=== PATIENT | female | born 1960 | race Caucasian/White ===

== ENCOUNTER → 2017-03-21 | Outpatient (CLI) | payer OTHER ==
--- NOTE | 2017-03-21 09:33 | REPMRS ---
Patient History The patient states she had a clinical breast exam in 03/2017. Patient is postmenopausal. Family history of prostate cancer in paternal grandfather at age 50 or over and breast cancer in paternal cousin at age 38. Digital Woman Screen Mammo: March 21, 2017 - Exam #: [id number] Bilateral CC and MLO view(s) were taken. Technologist: Alisa Ramirez Technologist Prior study comparison: March 20, 2016, digital woman screen mammo performed at [facility]. March 16, 2015, digital woman screen mammo performed at [facility]. FINDINGS: There are scattered fibroglandular densities. There has been no change in the appearance of the mammogram from the prior studies. There is a mild amount of residual fibroglandular tissue which is fairly symmetric. There is no interval development of dominant mass, architectural distortion, or clustered microcalcification suggestive of malignancy. ASSESSMENT: BI-RADS/ACR category 1 mammogram. Negative. Recommendation Routine screening mammogram in 1 year (for women over age 40). This mammogram was interpreted with the aid of an FDA-approved computer-aided dectection system. Electronically Signed By: Ranulfo Brown MD 03/21/17 0933
== END ==
LOC: M WHC 08:04
PROVIDERS: ATTEND Nurse Practitioner Women's Health
DX: Z12.31 Encounter for screening mammogram for malignant neoplasm of breast (principal)

== ENCOUNTER → 2017-09-25 | Outpatient (CLI) | payer OTHER | LOC: M WUC 18:05 | DX: S90.121A Contusion of right lesser toe(s) without damage to nail, initial encounter (principal) | CPT/HCPCS: 73660 ==

== ENCOUNTER → 2018-03-24 | Outpatient (CLI) | payer OTHER | LOC: M WHC 08:00 | DX: Z12.31 Encounter for screening mammogram for malignant neoplasm of breast (principal) ==

== ENCOUNTER → 2018-11-30 | Outpatient (REF) | payer OTHER | LOC: M LAB REF 11:42 | PROVIDERS: ATTEND Physician Assistant | DX: N39.0 Urinary tract infection, site not specified (principal) ==

== ENCOUNTER → 2019-03-25 | Outpatient (CLI) | payer BC ==
--- NOTE | 2019-03-25 10:52 | REPMRS ---
Patient History The patient states she had a clinical breast exam in 03/2019. Family history of breast cancer at age 38 in paternal cousin, prostate cancer at age 50 or over in paternal grandfather. Digital Woman Screen Mammo: March 25, 2019 - Exam #: [id number] Bilateral CC and MLO view(s) were taken. Technologist: Alisa Ramirez Technologist Prior study comparison: March 24, 2018, bilateral digital woman screen mammo performed at [facility]. March 21, 2017, digital woman screen mammo performed at [facility]. March 20, 2016, digital woman screen mammo performed at [facility]. FINDINGS: There are scattered fibroglandular densities. There has been no change in the appearance of the mammogram from the prior studies. There is a mild amount of scattered fibroglandular density which is fairly symmetric. There is no interval development of dominant mass, architectural distortion, or grouped microcalcification suggestive of malignancy. 3-D tomosynthesis shows no additional findings. Assessment: BI-RADS/ACR category 1 mammogram. Negative Mammogram. Recommendation Routine screening mammogram of both breasts in 1 year (for women over age 40). This patient's Lifetime Breast Cancer Risk is estimated at 9.4 %. This mammogram was interpreted with the aid of an FDA-approved computer-aided dectection system. Electronically Signed By: Edgard Hodgson MD 03/25/19 8187
== END ==
LOC: M WHC 08:23
PROVIDERS: ATTEND Nurse Practitioner Women's Health
DX: Z12.31 Encounter for screening mammogram for malignant neoplasm of breast (principal)

== ENCOUNTER → 2019-03-25 | Outpatient (REF) | payer BC ==
[2019-03-27 16:05] LABS: HPV HYBRID CAPTURE II Negative (Negative)
== END ==
LOC: M SFHCWAGY 08:16
PROVIDERS: ATTEND Nurse Practitioner Women's Health
DX: Z12.4 Encounter for screening for malignant neoplasm of cervix (principal)
CPT/HCPCS: 87624; G0123

== ENCOUNTER → 2019-06-09 | Outpatient (CLI) | payer BC ==
--- NOTE | 2019-06-10 08:36 | REP ---
Clinical: Right shoulder pain. Technique: Internal rotation, external rotation, and Y view of the right shoulder. Findings: Inferior spurring/osteophyte formation along the inferior margin of the clavicle at the acromioclavicular joint is appreciated. The subacromial space is normal. The glenohumeral joint is normal. There is no evidence for acute fracture or dislocation. No calcified periarticular loose bodies. Impression: Degenerative changes at the acromioclavicular joint with inferior spurring/osteophyte formation. Electronically Signed by Harish Zapata MD 06/10/2019 08:28 A
== END ==
LOC: M WUC 16:48
PROVIDERS: ATTEND Physician Assistant
DX: M19.011 Primary osteoarthritis, right shoulder (principal); M25.711 Osteophyte, right shoulder

== ENCOUNTER → 2020-03-27 | Outpatient (CLI) | payer BC ==
--- NOTE | 2020-03-27 17:46 | REPMRS ---
Patient History The patient states she had a clinical breast exam in March 2020.Family history of breast cancer at age 38 in paternal cousin, prostate cancer at age 50 or over in paternal grandfather. Digital Woman Screen Mammo: March 27, 2020 - Exam #: [id number] Bilateral CC and MLO view(s) were taken. Technologist: Lesa Leon, Technologist Prior study comparison: March 25, 2019, bilateral digital woman screen mammo performed at [facility]. March 24, 2018, bilateral digital woman screen mammo performed at [facility]. March 21, 2017, digital woman screen mammo performed at [facility]. FINDINGS: The breast tissue is almost entirely fat. The Volpara volumetric breast density category is: A. There has been no change in the appearance of the mammogram from the prior studies. There is no interval development of dominant mass, architectural distortion, or grouped microcalcification typical of malignancy. 3-D tomosynthesis shows no additional findings. Assessment: BI-RADS/ACR category 1 mammogram. Negative Mammogram. Recommendation Routine screening mammogram of both breasts in 1 year (for women over age 40). This patient's Lifetime Breast Cancer RIsk is estimated at 9.2 %. This mammogram was interpreted with the aid of an FDA-approved computer-aided dectection system. Electronically Signed By: Edgard Hodgson MD 03/27/20 2607
== END ==
LOC: M WHC 08:56
PROVIDERS: ATTEND Nurse Practitioner Women's Health
DX: Z12.31 Encounter for screening mammogram for malignant neoplasm of breast (principal)

== ENCOUNTER → 2020-09-11 | Outpatient (CLI) | payer BC ==
--- NOTE | 2020-09-11 11:25 | REP ---
INDICATION: RT ARM PAIN SWELLING ? DVT COMPARISON: None. TECHNIQUE: Real time compression and duplex Doppler evaluation of the Right upper extremity deep venous system is performed. FINDINGS: The Right subclavian, jugular, axillary, brachial, basilic and cephalic veins are fully compressible where accessible with transducer pressure, and demonstrate no intraluminal thrombus and normal venous waveforms. There is no evidence of deep venous thrombosis. IMPRESSION: No evidence of deep venous thrombosis of the Right upper extremity deep vein system. <Electronically signed by Ranulfo Brown > 09/11/20 1128
== END ==
LOC: M RAD 10:50
PROVIDERS: ATTEND Physician Assistant Surgical
DX: M79.621 Pain in right upper arm (principal)

== ENCOUNTER → 2021-04-03 | Outpatient (REF) | payer BC ==
[~2021-04-03] MED LIST: ATOR1TAB21 PO; BISAC5TA PO; LOSA100T45 PO
== END ==
LOC: M SFHCWAGY 13:14
PROVIDERS: ATTEND Nurse Practitioner Women's Health
DX: Z12.4 Encounter for screening for malignant neoplasm of cervix (principal); B37.9 Candidiasis, unspecified
CPT/HCPCS: 87624; G0123

== ENCOUNTER → 2021-04-03 | Outpatient (CLI) | payer BC | LOC: M WHC 07:43 | PROVIDERS: ATTEND Nurse Practitioner Women's Health | DX: Z12.31 Encounter for screening mammogram for malignant neoplasm of breast (principal) ==

== ENCOUNTER → 2021-06-16 | Outpatient (CLI) | payer BC ==
[~2021-06-16] MED LIST changes: -LOSA100T45 PO; +LOSA100T50 PO
== END ==
LOC: M LABSMTC 09:58
PROVIDERS: ATTEND Anesthesiology
DX: Z01.812 Encounter for preprocedural laboratory examination (principal); Z20.822 Contact with and (suspected) exposure to COVID-19

== ENCOUNTER 2021-06-21 10:33 | Day surgery (SDC) | payer BC ==
[~2021-06-21] VITALS: Ht 152.4 cm; Wt 85.5 kg
[~2021-06-21 10:33] MED LIST changes: +NS 1,000 ML IV ONE
--- OUTSIDE RECORDS SUMMARY | 2021-06-21 10:42 | CCD | Continuity of Care Document ---
Author Author Claudia COKER [facility] Organization Unknown Address [address] [facility] [address] [place] [address] Phone [phone] Problems Active Problems Provider Date Psoriasis Gavino Coker RPA Onset: 03/21/2010 Hyperlipidemia Gavino Coker RPA Onset: 03/22/2010 Anemia Gavino Coker, SHAREE Onset: 02/01/2011 Hematuria syndrome Gavino Coker RPA Onset: 07/05/2011 Rheumatoid arthritis Gavino Coker RPA Onset: 2 Note: Dr. 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/2015 Social History Type Date Description Comments Sex Unknown Tobacco Use Start: Unknown End: Unknown Former Cigarette Smo ker 1/2 Pack Daily for 30 years Tobacco Use Start: Unknown End: Unknown Quit at age 49 ETOH Use Occasionally consumes wine Tobacco Use Start: Unknown End: Unknown Patient is a former smoker Seat Belt/Car Seat yes Allergies, Adverse Reactions, Alerts Description No Known Drug Allergies Medications Active Medications SIG Qnty Indications Ordering Provide r Date Moderna Covid-19 Vaccine 100mcg/0.5ML Suspension 10/02/20 & 10/30/20 Pankaj Isbell D.O., FAAFP 12/26/2020 Atorvastatin Calcium 20mg Tablets take one tablet by mouth every day maximum daily dose = 1 90tabs Pankaj Isbell D.O., FAAFP 12/19/2020 Lidocaine 5% Ointment apply topically three times a day as needed pain both knees 106.32gm Pankaj Isbell D.O., FAAFP 07/06/2020 Losartan Potassium 100mg Tablets take one tablet by mouth every day 90tabs Pankaj Isbell D.O., FAAFP 04/06/2020 Diprolene AF 0.05% Cream apply to hands twice a day 45gm Pankaj Ibsell D.O., FAAFP 02/2019 Multi-Vitamin Tablets 1 by mouth every day Unknown Medications Administered in Office Medication SIG Qnty Indications Ordering Provider Date Injection (SC)/(Im) Injection Gavino Coker, SHAREE 06/09/2019 Injection (SC)/(Im) Injection Gavino Coker RPA 06/21/2010 Immunizations CPT Code Status Date Vaccine Lot # [id number] Given 04/06/2020 Influenza Virus Vaccine, Quadrivalent, Slit Virus, Im Use 3Y & Up [id number] Given 06/09/2019 Influenza Virus Vaccine, Quadrivalent, Slit Virus, Im Use 3Y & Up [id number] 06110 Given 07/14/2017 Influenza Virus Vaccine, Quadrivalent, Slit Virus, Im Use 3Y & Up [id number] 87029 Given 06/21/2010 Influenza Virus Vac. Split Virus Individuals 3 Years And Above [id number] Vital Signs Date Vital Result Comment 04/03/2021 3:18pm BP Systolic 106 mmHg BP Diastolic 80 mmHg Body Temperature 97.5 F Heart Rate 79 /min Respiratory Rate 16 /min Height 60.6 inches 5'0.60" Weight 193.00 lb [place] Body Weight 100 lb BMI (Body Mass Index) 36.9 kg/m2 O2 % BldC Oximetry 98 % 12/26/2020 1:02pm BP Systolic 134 mmHg BP Diastolic 74 mmHg Body Temperature 97.2 F Heart Rate 85 /min Respiratory Rate 16 /min Height 60.6 inches 5'0.60" Weight 188.00 lb [place] Body Weight 100 lb BMI (Body Mass Index) 36.0 kg/m2 O2 % BldC Oximetry 97 % Results Test Acquired Date Facility Test Result H/L Range Note Complete Metabolic Profile 12/28/[address] [address] (315)- - Glu 100 mg/dL 74-106 BUN 24 mg/dL High 7-18 Cre 0.78 mg/dL 0.6-1.0 Na 143 mmol/L 136-145 K 4.6 mmol/L 3.5-5.1 CL 105 mmol/L 98-107 Co2 27 mmol/L 21-32 CA 8.8 mg/dL 8.5-10.1 Gap 11.0 mmol/L 5-12 GFR 76 mL/min 1 Ast 22 U/L 15-37 Alt 53 U/L 12-78 Alk 106 U/L 46-116 Tbili 0.3 mg/dL 0.2-1.0 TP 6.5 g/dL 6.4-8.2 Alb 3.5 gm/dL 3.4-5.0 Hemoglobin A1c 12/28/[address] [address] (315)- - Ha1 5.5 % 3.8-5.6 2 Eag 111.2 mg/dL Lipid Profile 12/28/[address] [address] (315)- - Chol 172 mg/dL 0-200 Trig 163 mg/dL High 0-150 zzzLDL 95 mg/dL 0-100 HDL 44 mg/dL 40-60 CHDL 3.9 0.0-5.0 1 GFR IS CALCULATED IN mL/min/ 1.73m2 NORMAL FUNCTION: >90 MILDLY DECREASED: 60-89 MILDY TO MODERATELY DECREASED: 45-59 MODERATELY TO SEVERELY DECREASED: 30-44 SEVERELY DECREASED: 15-29 RENAL FAILURE: <15 2 Diabetic > or = to 6.5% Prediabetes 5.7-6.4% Normal <5.7 Procedures Date Code Description Status 04/03/2021 99188 Office/Outpatient Established Mo d MDM 30-39 Min Completed 12/26/2020 82738 Office/Outpatient Established Mo d MDM 30-39 Min Completed Medical Devices Description No Information Available Encounters Type Date Location Provider Dx Diagnosis Office Visit 04/03/2021 3:15p [facility] Gavino Coker, RP A I10 Essential (primary) hypertension E78.5 Hyperlipidemia, unspecified Z12.11 Encounter for screening for malignant neoplasm of colon Office Visit 12/26/2020 1:00p [facility] Gavino Coker, RP A I10 Essential (primary) hypertension E78.5 Hyperlipidemia, unspecified Assessments Date Code Description Provider 04/03/2021 I10 Essential (primary) hypertension Gavino Coker, SHAREE 04/03/2021 E78.5 Hyperlipidemia, unspecified Gavino Dubose, SHAREE 04/03/2021 Z12.11 Encounter for screening for roxane gnant neoplasm of colon Gavino Coker, SHAREE 12/26/2020 I10 Essential (primary) hypertension Gavino Coker, SHAREE 12/26/2020 E78.5 Hyperlipidemia, unspecified Gavino Dubose, RPA Plan of Treatment No Information Available Functional Status Description No Information Available Mental Status Description No Information Available Referrals Refer to Dr Reason for Referral Status Appt Date Florin Betancourt M.D. 10 yr follow up colonoscopy Sent [address] [place] [address], [address] [address] [phone]
--- OUTSIDE RECORDS SUMMARY | 2021-06-21 10:42 | CCD | Continuity of Care Document ---
Author Author Claudia COKER [facility] Organization Unknown Address [address] [facility] [address] [place] [address] Phone [phone] Problems Active Problems Provider Date Psoriasis Gavino Coker RPA Onset: 03/21/2010 Hyperlipidemia Gavino Coker RPA Onset: 03/22/2010 Anemia Gavino Coker RPA Onset: 02/01/2011 Hematuria syndrome Gavino Coker RPA [...] a former smoker Seat Belt/Car Seat yes Allergies and adverse reactions Description No Known Drug Allergies Medications Active Medications SIG Qnty Indications Ordering Provide r Date Moderna Covid-19 Vaccine 100mcg/0.5ML Suspension 10/02/20 & 10/30/20 Pankaj Isbell D.O., FAAFP 12/26/2020 Atorvastatin Calcium 20mg Tablets Take 1 Tablet Daily (Max Daily Dose: 1) 90tabs Pankaj Isbell D.O., FAAFP 12/19/2020 Lidocaine 5% Ointment apply topically three times a day as needed pain both knees 106.32gm Pankaj Isbell D.O., FAAFP 07/06/2020 Losartan Potassium 100mg Tablets Take 1 Tablet Daily 90tabs Pankaj Isbell D.O., FAAFP 10/2019 Diprolene AF 0.05% Cream apply to hands twice a day 45gm Pankaj Isbell D.O., FAAFP 02/2019 Multi-Vitamin Tablets 1 by mouth every day Unknown Medications Administered in Office Medication SIG Qnty Indications Ordering Provider Date Injection (SC)/(Im) Injection Gavino Coker, SHAREE 06/09/2019 Injection (SC)/(Im) Injection Gavino Coker, RPA 06/21/2010 Immunizations CPT Code Status Date Vaccine Lot # [id number] Given 04/06/2020 Influenza Virus Vaccine, Quadrivalent, Slit Virus, Im Use 3Y & Up [id number] 45782 Given 06/09/2019 Influenza Virus Vaccine, Quadrivalent, Slit Virus, Im Use 3Y & Up [id number] 65402 Given 07/14/2017 Influenza Virus Vaccine, Quadrivalent, Slit Virus, Im Use 3Y & Up [id number] 78435 Given 06/21/2010 Influenza Virus Vac. Split Virus Individuals 3 Years And Above [id number] Vital Signs Date Vital Result Comment 04/03/2021 3:18pm BP Systolic 106 mmHg BP Diastolic 80 mmHg Body Temperature 97.5 F Heart Rate 79 /min Respiratory Rate 16 /min Height 60.6 inches 5'0.60" Weight 193.00 lb [place] Body Weight 100 lb BMI (Body Mass Index) 36.9 kg/m2 O2 % BldC Oximetry 98 % 12/26/2020 1:02pm BP Systolic 134 mmHg BP Diastolic 74 mmHg Body Temperature 97.2 F Heart Rate 85 /min Respiratory Rate 16 /min Height 60.6 inches 5'0.60" Weight 188.00 lb [place] Body Weight 100 lb BMI (Body Mass Index) 36.0 kg/m2 O2 % BldC Oximetry 97 % Results Test Acquired Date Facility Test Result H/L Range Note Coronavirus 2019 Nasopharygeal 06/16/2021 [facility] [phone] Coronavirus 2019 Nasopharygeal ASSAY INFORMATIO <SEE N OTE> 1 Complete Metabolic Profile 12/28/2020 [place] [address] (315)- - Glu 100 mg/dL 74-106 BUN 24 mg/dL High 7-18 Cre 0.78 mg/dL 0.6-1.0 Na 143 mmol/L 136-145 K 4.6 mmol/L 3.5-5.1 CL 105 mmol/L 98-107 Co2 27 mmol/L 21-32 CA 8.8 mg/dL 8.5-10.1 Gap 11.0 mmol/L 5-12 GFR 76 mL/min 2 Ast 22 U/L 15-37 Alt 53 U/L 12-78 Alk 106 U/L 46-116 Tbili 0.3 mg/dL 0.2-1.0 TP 6.5 g/dL 6.4-8.2 Alb 3.5 gm/dL 3.4-5.0 Hemoglobin A1c 12/28/2020 [place] [address] (137)- - Ha1 5.5 % 3.8-5.6 3 Eag 111.2 mg/dL Lipid Profile 12/28/2020 [place] [address] (315)- - Chol 172 mg/dL 0-200 Trig 163 mg/dL High 0-150 zzzLDL 95 mg/dL 0-100 HDL 44 mg/dL 40-60 CHDL 3.9 0.0-5.0 1 ASSAY INFORMATION: Real Time RT-PCR NOTE: The COVID-19 assay has been cleared by the U.S. Food and Drug Administration under the Emergency Use Authorization (EUA). [facility] and [facility] are designated as high complexity laboratories by the Clinical Laboratory Improvement Amendments of 1988(CLIA) and are qualified to perform this test. Not Detected 2 GFR IS CALCULATED IN mL/min/ 1.73m2 NORMAL FUNCTION: >90 MILDLY DECREASED: 60-89 MILDY TO MODERATELY DECREASED: 45-59 MODERATELY TO SEVERELY DECREASED: 30-44 SEVERELY DECREASED: 15-29 RENAL FAILURE: <15 3 Diabetic > or = to 6.5% Prediabetes 5.7-6.4% Normal <5.7 Procedures Date Code Description Status 04/03/2021 99757 Office/Outpatient Established Mo d MDM 30-39 Min Completed 12/26/2020 25933 Office/Outpatient Established Mo d MDM 30-39 Min Completed Medical Devices Description No Information Available Encounters Type Date Location Provider Dx Diagnosis Office Visit 04/03/2021 3:15p [facility] Gavino Coker, RP A I10 Essential (primary) hypertension E78.5 Hyperlipidemia, unspecified Z12.11 Encounter for screening for malignant neoplasm of colon Office Visit 12/26/2020 1:00p [facility] Gavino Coker, RP A I10 Essential (primary) hypertension E78.5 Hyperlipidemia, unspecified Assessments Date Code Description Provider 04/03/2021 I10 Essential (primary) hypertension Gavino Coker, RPA 04/03/2021 E78.5 Hyperlipidemia, unspecified Gavino Dubose, RPA 04/03/2021 Z12.11 Encounter for screening for roxane gnant neoplasm of colon Gavino Coker, RPA 12/26/2020 I10 Essential (primary) hypertension Gavino Coker, RPA 12/26/2020 E78.5 Hyperlipidemia, unspecified Gavino Dubose, RPA Plan of Treatment Future Appointment(s):* 07/02/2021 9:30 am - Gavino Coker, RPA at [facility] Functional Status Description No Information Available Mental Status Description No Information Available Referrals Refer to Reason for Referral Status Appt Date Florin Betancourt M.D. 10 yr follow up colonoscopy Sent [address] [facility], [address] [place] [address] [phone]
--- OUTSIDE RECORDS SUMMARY | 2021-06-21 10:42 | CCD ---
Author Author [facility] Organization [facility] Address Unknown Phone Unavailable Care Team Providers Care Beam Doffer Name Role Phone Shyla Radha Unavailable PROBLEMS Type Condition ICD9-CM Code QQC13-MT Code Onset Dates Condition S tatus W/U Status Risk SNOMED Code Notes Problem Postmenopausal status Z78.0 Active confirmed 42024748 Problem Tobacco use Z72.0 Active confirmed [id number] ALLERGIES No Known Allergies ENCOUNTERS from 1960 to 2021-04-04 Encounter Location Date Provider Diagnosis [facility] [address] [place] [address] [place] [address] Mar, Radha Mansfield Routine gynecologica l examination Z01.419 ; Breast cancer screening by mammogram Z12.31 ; Postmenopausal status Z78.0 ; Screening for malignant neoplasm of cervix Z12.4 ; Family hx-breast malignancy Z80.3 and Tobacco use disorder Z72.0 IMMUNIZATIONS Vaccine Route Administration Date Status Influenza 6mo & up Fluzone Unknown November 02, 2015 Other s SOCIAL HISTORY Tobacco Use: Social History Observation Description Date Details (start date - stop date) Former Smoker Sex Assigned At : Social History Observation Description Sex Assigned At Unknown Language: Question Answer Notes Languages spoken: Libyan Sexual Hx: Question Answer Notes Had sex in the last 12 months (vaginal, oral, or anal)? Yes LMP: post menopause Have you ever had an STD? No with Men only BMI Care Goal Follow-Up Question Answer Notes Above Normal BMI Follow-Up Giving encouragement to exercise, Weight monitoring Tobacco Use: Question Answer Notes Are you a: former smoker Additional Findings: Tobacco User Light cigarette smoker ((1 -9 cigs/day) How long has it been since you last smoked? 1-3 months quit 01/04/18 REASON FOR REFERRAL No Information VITAL SIGNS Weight 194 lbs Mar, Weight-kg 88 kg Mar, Height 60 in Mar, BMI 37.88 kg/m2 Mar, Blood pressure systolic 124 mm Hg Mar, Blood pressure diastolic 78 mm Hg Mar, MEDICATIONS Medication SIG (Take, Route, Frequency, Duration) Notes Start Da te End Date Status Calcium 600 + D 600-200 MG-UNIT 1 tablet with food p.o. Once a day Not-Taking Atorvastatin Calcium 20 MG TAKE ONE TABLET BY MOUTH EVERY DAY Oral fo r 90 Active Vitamin B12 100 MCG as directed Orally Mar, Active Lipitor 20 MG 1 tablet Orally Once a day Active Fluconazole 150 MG 1 tablet Orally Daily for 1 day(s) Active Crestor 10 mg 1 tab(s) p.o. Once a day for 30 day(s) Not-Taking Vitamin B Complex otc 1 tab(s) p.o. once a day Not-Taking Multivitamins otc 1 tab(s) p.o. once a day Active Folic Acid 400 MCG 1 tablet Orally Once a day for 30 day(s) Mar, Active PROCEDURES No Information RESULTS Component Value Reference Range WWBC DIGITAL / KIT BILATERAL MAMMO SCRE ENING (Ultrasound if indicated) Reviewed date:04/03/2021 10:46:14 Interpretation:Normal Performing Lab:[facility],rep ct [place]], ,[place] [address] REASON FOR VISIT ANNUAL/MAMMO MEDICAL (GENERAL) HISTORY Type Description Date Medical History hypercholesterolemia Medical History postmenopause Medical History Sjorgren's Syndrome Medical History TMJ Surgical History C section x2 Surgical History tubal ligation Surgical History colonoscopy 2010 Surgical History rotated cuff right Dr. Flaherty 10/10/20 Hospitalization History No Hospitalization history informati on Goals Section No Information Health Concerns No Information MEDICAL EQUIPMENT No Information MENTAL STATUS No Information FUNCTIONAL STATUS No Information ASSESSMENTS Encounter Date Diagnosis Assessment Notes Treatment Notes Treatm ent Clinical Notes Mar, Routine gynecological examination (ICD-10 - Z01. 419) Pt to report any episodes of pmb or pelvic pain. Advise regular physical activity including weight bearing exercise most days of the week. Reviewed calcium rich foods. HCRA completed and reviewed Mar, Breast cancer screening by mammogram (ICD-10 - Z 12.31) Reviewed screening intervals with mammography, recommend annual screening until age 75. Reviewed breast awareness, know what is normal for you so that you can detect any changes in the breasts, check breasts regularly, in a routine that you are comfortable with. Mar, Postmenopausal status (ICD-10 - Z78.0) Mar, Screening for malignant neoplasm of cervix (ICD- 10 - Z12.4) Reviewed ASCCP guidelines for pap screening and frequency, reviewed utility of HPV testing as well and when next pap will be due Mar, Family hx-breast malignancy (ICD-10 - Z80.3) Mar, Tobacco use disorder (ICD-10 - Z72.0) cessation advised PLAN OF TREATMENT Treatment Notes Assessment Notes Clinical Notes Routine gynecological examination Pt to report any episodes of pmb or pelvic pain. Advise regular physical activity including weight bearing exercise most days of the week. Reviewed calcium rich foods.HCRA completed and reviewed Breast cancer screening by mammogram Rev iewed screening intervals with mammography, recommend annual screening until age 75. Reviewed breast awareness, know what is normal for you so that you can detect any changes in the breasts, check breasts regularly, in a routine that you are comfortable with. Screening for malignant neoplasm of cervix Reviewed ASCCP guidelines for pap screening and frequency, reviewed utility of HPV testing as well and when next pap will be due Tobacco use disorder cessation advised Treatment Notes Test Name Order Date PAP REQUEST FOR SERVICE 2021-04-03 Next Appt Details 1 Year Reason:annual/mammo Provider Name:Radha Mansfield, 2022-04-04 01:20:00 PM, [address] [facility], , [place], [address], Follow Up:1 Yearannual/mammo Insurance Providers Payer Name Payer Address Payer Phone Insured Name Patient Relati onship to Insured Coverage Start Date Coverage End Date [employer] [place] P[employer] [id number] [facility] [employer] [facility] [place] [id number] DOMINIC HOLLAND self
--- OUTSIDE RECORDS SUMMARY | 2021-06-21 10:42 | CCD | Continuity of Care Document ---
Author Author Claudia YO-C Organization Unknown Address [address], [address] [place] [address] Phone [phone] Care Team Providers Care Tone Artist Apprentice Name Role Phone Gavino Coker AUTM [phone] Problems Description No Information Available Social History Type Date Description Comments Sex Unknown Tobacco Use Start: Unknown End: Unknown Former Cigarette Smo ker January 2018 ETOH Use Social Drinker Sun Exposure minimum amount of sun exposure Sun Exposure Tanning bed - Has used in past. No longer using. Sun Exposure Has experienced blistering from sunburns Sun Exposure Uses > 30 SPF Allergies, Adverse Reactions, Alerts Description No Known Drug Allergies Medications Active Medications SIG Qnty Indications Ordering Provide r Date Lipitor Unknown Folic + B12 Unknown Betamethasone Dipropionate Unknown Vitamin D Unknown Losartan Potassium Unknown Zinc Unknown Immunizations Description No Information Available Vital Signs Date Vital Result Comment 03/27/2021 12:29pm BP Systolic 140 mmHg BP Diastolic 102 mmHg Weight 180.00 lb Height 60 inches 5'0" BMI (Body Mass Index) 35.1 kg/m2 09/27/2020 11:17am BP Systolic 126 mmHg BP Diastolic 80 mmHg Weight 175.00 lb Body Temperature 97.8 F Results Description No Information Available Procedures Date Code Description Status 03/27/2021 25986 Office/Outpatient Established Mo d MDM 30-39 Min Completed 03/27/2021 05675 Destruction Of Lesion First Comp leted Medical Devices Description No Information Available Encounters Type Date Location Provider Dx Diagnosis Office Visit 03/27/2021 12:30p Main Office LISANDRA An L57.0 Actinic keratosis D22.5 Melanocytic nevi of trunk L82.1 Other seborrheic keratosis L81.4 Other melanin hyperpigmentat ion Z87.2 Personal history of diseases of the skin, subcu Z08 Encntr for follow-up exam af ter trtmt for malignant neoplasm Assessments Date Code Description Provider 03/27/2021 L57.0 Actinic keratosis LISANDRA Restrepo 03/27/2021 D22.5 Melanocytic nevi of trunk Jes sydneyLISANDRA Wharton 03/27/2021 L82.1 Other seborrheic keratosis Maribell aneLISANDRA Wharton 03/27/2021 L81.4 Other melanin hyperpigmentation LISANDRA An 03/27/2021 Z87.2 Personal history of diseases of the skin and subcutaneous tissue LISANDRA An 03/27/2021 Z08 Encounter for follow -up examination after completed treatment for malignant neoplasm LISANDRA An Plan of Treatment Future Appointment(s):* 11/12/2021 1:30 pm - LISANDRA An at Main Office 03/27/2021 - LISANDRA An* L57.0 Actinic keratosis* Comments:* LN2 to 1 AK today. Discussed that the area treated will get red, bubble up/bl ister, maybe get a little weepy, form a scab then heal. Sunscreen use and sun protection discussed. Contact office if AK fails to resolve despite treatment. * D22.5 Melanocytic nevi of trunk* Comments:* Nevi on trunk appear healthy. Monitor for changes. Sun protection and sunscreen use discussed. Literature given on monthly self skin evaluations. Should any moles change in shape or color, itch, bleed or burn, pt will contact office for evaluation sooner than their interval appointment. * L82.1 Other seborrheic keratosis* Comments:* Reassurance.Seborrheic keratoses are benign warty growths, patients will get more of them as they age. * L81.4 Other melanin hyperpigmentation* Comments:* Sunscreen use and sun protection discussed. Call with any problems. * Z87.2 Personal history of diseases of the skin and subcutaneous tissue* Comments:* Continue to monitor for recurrence. * Z08 Encounter for follow-up examination after completed treatment for malignant neoplasm* Comments:* See above. * Follow up:* 6 months/PRN - [facility] Functional Status Description No Information Available Mental Status Description No Information Available Referrals Description No Information Available
--- OUTSIDE RECORDS SUMMARY | 2021-06-21 10:42 | CCD | Continuity of Care Document ---
Author Claudia Farrar Organization Unknown Address [address] [facility] [address] [place] [address] Phone [phone] Care Team Providers Care Technical Operator Name Role Phone Gavino Coker AUTM [phone] AUTM Unavailable Gavion Coker AUTM [phone] Problems Active Problems Provider Date Temporomandibular joint disorder Dragan Stearns MD Onset: 02/21/2014 Allergic rhinitis Dragan Stearns MD Onset: 02/21/2014 Cervical syndrome Dragan Stearns MD Onset: 04/18/2014 Essential hypertension NAYELI Diop Onset: 04/17/2021 Social History Type Date Description Comments Sex Unknown ETOH Use Sociable Tobacco Use Start: Unknown End: Unknown Patient is a former smoker 1/2 ppd for 20 years quit 2018 Recreational Drug Use Denies Drug Use Allergies, Adverse Reactions, Alerts Description No Known Drug Allergies Medications Active Medications SIG Qnty Indications Ordering Provide r Date Lipitor 20mg Tablets 1 by mouth every day Unknown Vitamin B daily Unknown Vitamin D daily Unknown Losartan Potassium 100mg Tablets 1 tab by mouth every day Unknown Folic Acid 400mcg Tablets 1 tab by mouth every day Unknown Zinc 50mg Tablets 1 by mouth a day Unknown Immunizations Description No Information Available Vital Signs Date Vital Result Comment 04/17/2021 9:06am BP Systolic 130 mmHg BP Diastolic 87 mmHg Heart Rate 67 /min Body Temperature 98.2 F Height 60 inches 5'0" Weight 191.50 lb BMI (Body Mass Index) 37.4 kg/m2 [place] Body Weight 100 lb Weight 86.864 kg BSA (Body Surface Area) 1.83 m2 04/18/2014 9:33am BP Systolic 156 mmHg BP Diastolic 99 mmHg Heart Rate 85 /min Height 59.75 inches 4'11.75" Weight 170.00 lb BMI (Body Mass Index) 33.5 kg/m2 [place] Body Weight 100 lb Weight 77.112 kg BSA (Body Surface Area) 1.74 m2 Results Description No Information Available Procedures Description No Information Available Medical Devices Description No Information Available Encounters Description No Information Available Assessments Date Code Description Provider 04/17/2021 Z12.11 Encounter for screening for roxane gnant neoplasm of colon NAYELI Diop 04/17/2021 K64.9 Unspecified hemorrhoids NAYELI Lopez Plan of Treatment No Information Available Functional Status Description No Information Available Mental Status Description No Information Available Referrals Refer to Reason for Referral Status Appt Date Florin Betancourt JR, MD SCHED COLONOSCOPY Created [address] [address] [phone]
--- OUTSIDE RECORDS SUMMARY | 2021-06-21 10:42 | CCD | Continuity of Care Document ---
Author Claudia Farrar Organization Unknown Address [address] [facility] [address] [place] [address] Phone [phone] Care Team Providers Care Pearl Stringer Name Role Phone Gavino Coker AUTM AUTM Unavailable Gavino Coker AUTM Problems Active Problems Provider Date Temporomandibular joint [...] lb BMI (Body Mass Index) 37.4 kg/m2 [place] Body Weight 100 lb Weight 86.864 kg BSA (Body Surface Area) 1.83 m2 04/18/2014 9:33am BP Systolic 156 mmHg BP Diastolic 99 mmHg Heart Rate 85 /min Height 59.75 inches 4'11.75" Weight 170.00 lb BMI (Body Mass Index) 33.5 kg/m2 [place] Body Weight 100 lb Weight 77.112 kg BSA (Body Surface Area) 1.74 m2 Results Description No Information Available Procedures Date Code Description Status 04/17/2021 28829 Office/Outpatient New Moderate M DM 45-59 Minutes Completed Medical Devices Description No Information Available Encounters Type Date Location Provider Dx Diagnosis Office Visit 04/17/2021 9:00a [facility] NAYELI Gutierrez Z12.11 Encounter for screening for malignant ne oplasm of colon K64.9 Unspecified hemorrhoids Assessments Date Code Description Provider 04/17/2021 Z12.11 Encounter for screening for roxane gnant neoplasm of colon NAYELI Diop 04/17/2021 K64.9 Unspecified hemorrhoids NAYELI Lopez Plan of Treatment Future Appointment(s):* 07/05/2021 9:45 am - NAYELI Diop at [facility] * 06/21/2021 12:45 pm - Florin Betancourt JR, MD at [facility] 04/17/2021 - NAYELI Diop* Z12.11 Encounter for screening for malignant neoplasm of colon * K64.9 Unspecified hemorrhoids Functional Status Description No Information Available Mental Status Description No Information Available Referrals Refer to Reason for Referral Status Appt Date Florin Betancourt JR, MD SCHED COLONOSCOPY Created [address] [address] [phone]
--- OUTSIDE RECORDS SUMMARY | 2021-06-21 10:42 | CCD | Continuity of Care Document ---
Author Author Claudia [facility] Organization Unknown Address [address] [facility] [address] [place] [address] Phone [phone] Problems Active Problems Provider Date Psoriasis Gavino [...] CPT Code Status Date Vaccine Lot # [id number] Given 04/06/2020 Influenza Virus Vaccine, Quadrivalent, Slit Virus, Im Use 3Y & Up [id number] 21948 Given 06/09/2019 Influenza Virus Vaccine, Quadrivalent, Slit Virus, Im Use 3Y & Up [id number] [id number] Given 07/14/2017 Influenza Virus Vaccine, Quadrivalent, Slit Virus, Im Use 3Y & Up [id number] [id number] Given 06/21/2010 Influenza Virus Vac. Split Virus Individuals 3 Years And Above [id number] Vital Signs Date Vital Result Comment 04/03/2021 3:18pm BP Systolic 106 mmHg BP Diastolic 80 mmHg Body Temperature 97.5 F Heart Rate 79 /min Respiratory Rate 16 /min Height 60.6 inches 5'0.60" Weight 193.00 lb [place] Body Weight 100 lb BMI (Body Mass Index) 36.9 kg/m2 O2 % BldC Oximetry 98 % 12/26/2020 1:02pm BP Systolic 134 mmHg BP Diastolic 74 mmHg Body Temperature 97.2 F Heart Rate 85 /min Respiratory Rate 16 /min Height 60.6 inches 5'0.60" Weight 188.00 lb [place] Body Weight 100 lb BMI (Body Mass Index) 36.0 kg/m2 O2 % BldC Oximetry 97 % Results Test Acquired Date Facility Test Result H/L Range Note Complete Metabolic Profile 12/28/[address] [address] (315)- - Glu 100 mg/dL 74-106 BUN [...] Alb 3.5 gm/dL 3.4-5.0 Hemoglobin A1c 12/28/[address] [address] (315)- - Ha1 5.5 % 3.8-5.6 2 Eag 111.2 mg/dL Lipid Profile 12/28/[address] [address] (315)- - Chol 172 mg/dL 0-200 Trig [...] <5.7 Procedures Date Code Description Status 04/03/2021 25631 Office/Outpatient Established Mo d MDM 30-39 Min Completed 12/26/2020 48334 Office/Outpatient Established Mo d MDM 30-39 Min Completed Medical Devices Description No Information Available Encounters Type Date Location Provider Dx Diagnosis Office Visit 04/03/2021 3:15p [place] [facility] Gavino Coker, RP A I10 Essential (primary) hypertension E78.5 Hyperlipidemia, unspecified Z12.11 Encounter for screening for malignant neoplasm of colon Office Visit 12/26/2020 1:00p [place] [facility] Gavino Coker, RP A I10 Essential (primary) hypertension E78.5 Hyperlipidemia, unspecified Assessments Date Code Description Provider 04/03/2021 I10 Essential (primary) hypertension Gavino Coker, SHAREE 04/03/2021 E78.5 Hyperlipidemia, unspecified Gavino Dubose RPA 04/03/2021 Z12.11 Encounter for screening for roxane gnant neoplasm of colon Gavino Coker RPA 12/26/2020 I10 Essential (primary) hypertension Gavino Coker, SHAREE 12/26/2020 E78.5 Hyperlipidemia, unspecified Gavino Dubose RPA Plan of Treatment Future Appointment(s):* 07/02/2021 9:30 am - Gavino Coker RPA at [place] [facility] Functional Status Description No Information Available Mental Status Description No Information Available Referrals Refer to Reason for Referral Status Appt Date Florin Betancourt M.D. 10 yr follow up colonoscopy Sent [address] [facility], [address] [place] [id number] [phone]
--- OUTSIDE RECORDS SUMMARY | 2021-06-21 10:42 | CCD | Continuity of Care Document ---
Author Author [facility] Schedule Resourc e OnlyClaudia Organization Unknown Address [address] [place] [address] Phone [phone] Care Team Providers Care Supervising Deputy Name Role Phone Gavino Coker AUTM [phone] [facility] Physical Therapy AUTM Problems Active Problems Provider Date Pure hypercholesterolemia Onset: 021 Essential hypertension Onset: 09/19/2020 Bicipital tenosynovitis SOHAM Covarrubias Onset: Disorder of bursa of shoulder region SOHAM Covarrubias Ons et: 09/20/2020 Social History Type Date Description Comments Sex Unknown ETOH Use Occasionally consumes alcohol Recreational Drug Use Denies Drug Use Tobacco Use Start: Unknown End: Unknown Patient is a former smoker quit 3-4 years ago, smoked 1 PPD Allergies, Adverse Reactions, Alerts Active Allergies Criticality Reaction | Severity Comments Date NKDA Unable to assess criticality 09/19/2020 NKFA Unable to assess criticality 09/20/2020 NKEA Unable to assess criticality 09/20/2020 Medications Active Medications SIG Qnty Indications Ordering Provide r Date Losartan Potassium 100mg Tablets 1 by mouth every day Unknown Atorvastatin Calcium 20mg Tablets 1 by mouth every day Unknown Immunizations Description No Information Available Vital Signs Date Vital Result Comment 04/30/2021 11:20am Body Temperature 97.5 F 01/03/2021 8:20am Body Temperature 98.1 F Results Description No Information Available Procedures Date Code Description Status 04/30/2021 85344 Office/Outpatient Established Lo w MDM 20-29 Min Completed Medical Devices Description No Information Available Encounters Description No Information Available Assessments Date Code Description Provider 04/30/2021 M75.101 Unspecified rotator cuff tear or rupture of right shoulder, not specified as traumatic Joe Green, [facility] 04/30/2021 M75.21 Bicipital tendinitis, right shou lder Joe Green, [facility] 04/30/2021 M75.51 Bursitis of right shoulder Joe Green, [facility] 01/03/2021 M75.101 Unspecified rotator cuff tear or rupture of right shoulder, not specified as traumatic Joe Green, [facility] 01/03/2021 M75.21 Bicipital tendinitis, right shou lder Joe Green, [facility] 01/03/2021 M75.51 Bursitis of right shoulder Joe Green, [facility] 11/20/2020 M75.101 Unspecified rotator cuff tear or rupture of right shoulder, not specified as traumatic NAYELI Arrington 11/20/2020 M75.21 Bicipital tendinitis, right shou lder NAYELI Arrington 11/20/2020 M75.51 Bursitis of right shoulder NAYELI Maharaj 11/20/2020 Z47.89 Encounter for other orthopedic a ftercare NAYELI Arrington Plan of Treatment Future Appointment(s):* 11/23/2021 11:00 am - Ortho Group Schedule Resource Only at [facility] 04/30/2021 - Joe Green, [facility]* M75.101 Unspecified rotator cuff tear or rupture of right shoulder, not specified as traumatic* Follow up:* 6 months. * Instructions:* You are doing well. Continue strengthening and stretching. You can return to most regular activity at this time as long as you tolerate it. Do this gradually. Your next appointment will be in 6 months for your last routinely scheduled appointment with us (your 1 year follow up). Contact us sooner if you have any questions or concerns. * M75.21 Bicipital tendinitis, right shoulder * M75.51 Bursitis of right shoulder Functional Status Functional Condition Comment Date Status Glasses Active Mental Status Description No Information Available Referrals Description No Information Available"
--- OUTSIDE RECORDS SUMMARY | 2021-06-21 10:43 | CCD ---
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 Name Role Phone [facility] Unavailable [facility]available [facility] Unavailable Unavailable [facility] Unavailable Unavailable [facility] Unavailable Unavailable [facility] Unavailable Unavailable [facility] Unavailable Unavailable [facility] Unavailable Unavailable [facility] Unavailable Unavailable [facility] Unavailable Unavailable [facility] Unavailable Unavailable FORDS BRANCH, [facility] Unavailable Unavailable BECKY, [facility] Unavailable Unavailable BECKY, [facility] Unavailable Unavailable BECKY, [facility] Unavailable Unavailable BECKY [facility] Unavailable Unavailable Laquita Isbell PA-C Unavailable Unavailabl Laquita Holly PA-C Unavailable Unavailabl Laquita Holly PA-C Unavailable Unavailabl e Laquita Isbell PA-C Unavailable Unavailabl e Fish, [facility], PA-C Unavailable Unavailabl e Fish, [facility], PA-C Unavailable Unavailabl e Fish, [facility], PA-C Unavailable Unavailabl e Fish, [facility], PA-C Unavailable Unavailabl e Fish, [facility], PA-C Unavailable Unavailabl e Fish, [facility], PA-C Unavailable Unavailabl e Fish, [facility], PA-C Unavailable Unavailabl e Fish, [facility], PA-C Unavailable Unavailabl e Fish, [facility], PA-C Unavailable Unavailabl e Fish, [facility], PA-C Unavailable Unavailabl e Fish, [facility], PA-C Unavailable Unavailabl e Fish, [facility], PA-C Unavailable Unavailabl e Fish, [facility], PA-C Unavailable Unavailabl e Fish, [facility], PA-C Unavailable Unavailabl e Fish, [facility], PA-C Unavailable Unavailabl e Fish, [facility], PA-C Unavailable Unavailabl e Fish, [facility], PA-C Unavailable Unavailabl e Fish, [facility], PA-C Unavailable Unavailabl e Fish, [facility], PA-C Unavailable Unavailabl e Fish, [facility], PA-C Unavailable Unavailabl e Fish, [facility], PA-C Unavailable Unavailabl e Fish, [facility], PA-C Unavailable Unavailabl e Fish, [facility], PA-C Unavailable Unavailabl e Fish, [facility], PA-C Unavailable Unavailabl e Fish, [facility], PA-C Unavailable Unavailabl e Fish, [facility], PA-C Unavailable Unavailabl e Fish, [facility], PA-C Unavailable Unavailabl e Fish, [facility], PA-C Unavailable Unavailabl e Fish, [facility], PA-C Unavailable Unavailabl e Fish, [facility], PA-C Unavailable Unavailabl e Fish, [facility], PA-C Unavailable Unavailabl e Fish, Laquita Shabana MPAS, PA-C Unavailable Unavailabl e Bartoszewski, Mariama Meenakshi MS, RPA-C Unavailable Unav ailable Bartoszewski, Mariama Meenakshi MS, RPA-C Unavailable Unav ailable Bartoszewski, Mariama Meenakshi MS, RPA-C Unavailable Unav ailable Bartoszewski, Mariama Meenakshi MS, RPA-C Unavailable Unav ailable Bartoszewski, Mariama Meenakshi MS, RPA-C Unavailable Unav ailable Bartoszewski, Mariama Meenakshi MS, RPA-C Unavailable Unav ailable Bartoszewski, Mariama Meenakshi MS, RPA-C Unavailable Unav ailable Bartoszewski, Mariama Meenakshi MS, RPA-C Unavailable Unav ailable Bartoszewski, Mariama Meenakshi MS, RPA-C Unavailable Unav ailable Bartoszewski, Mariama Meenakshi MS, RPA-C Unavailable Unav ailable Bartoszewski, Mariama Meenakshi MS, RPA-C Unavailable Unav ailable Bartoszewski, Mariama Meenakshi MS, RPA-C Unavailable Unav ailable Bartoszewski, Mariama Meenakshi MS, RPA-C Unavailable Unav ailable Bartoszewski, Mariama Meenakshi MS, RPA-C Unavailable Unav ailable Bartoszewski, Mariama Meenakshi MS, RPA-C Unavailable Unav ailable Bartoszewski, Mariama Meenakshi MS, RPA-C Unavailable Unav ailable Bartoszewski, Mariama Meenakshi MS, RPA-C Unavailable Unav ailable Bartoszewski, Mariama Meenakshi MS, RPA-C Unavailable Unav ailable Bartoszewski, Mariama Meenakshi MS, RPA-C Unavailable Unav ailable Bartoszewski, Mariama Meenakshi MS, RPA-C Unavailable Unav ailable Bartoszewski, Mariama Meenakshi MS, RPA-C Unavailable Unav ailable Bartoszewski, Mariama Meenakshi MS, RPA-C Unavailable Unav ailable Bartoszewski, Mariama Meenakshi MS, RPA-C Unavailable Unav ailable Bartoszewski, Mariama Meenakshi MS, RPA-C Unavailable Unav ailable Bartoszewski, Mariama Meenakshi MS, RPA-C Unavailable Unav ailable Bartoszewski, Mariama Meenakshi MS, RPA-C Unavailable Unav ailable Bartoszewski, Mariama Meenakshi MS, RPA-C Unavailable Unav ailable Bartoszewski, Mariama Meenakshi MS, RPA-C Unavailable Unav ailable Bartoszewski, Mariama Meenakshi MS, RPA-C Unavailable Unav ailable Bartoszewski, Mariama Meenakshi MS, RPA-C Unavailable Unav ailable PARNES, Z FREYA MD Unavailable Unavailable PARNES, Z FREYA MD Unavailable Unavailable PARNES, Z FREYA MD Unavailable Unavailable PARNES, Z FREYA MD Unavailable Unavailable PARNES, Z FREYA MD Unavailable Unavailable PARNES, Z FREYA MD Unavailable Unavailable PARNES, Z FREYA MD Unavailable Unavailable PARNES, Z FREYA MD Unavailable Unavailable PARNES, Z FREYA MD Unavailable Unavailable PARNES, Z FREYA MD Unavailable Unavailable PARNES, Z FREYA MD Unavailable Unavailable PARNES, Z FREYA MD Unavailable Unavailable PARNES, Z FREYA MD Unavailable Unavailable PARNES, Z FREYA MD Unavailable Unavailable PARNES, Z FREYA MD Unavailable Unavailable PARNES, Z FREYA MD Unavailable Unavailable PARNES, Z FREYA MD Unavailable Unavailable PARNES, Z FREYA MD Unavailable Unavailable PARNES, Z FREYA MD Unavailable Unavailable PARNES, Z FREYA MD Unavailable Unavailable PARNES, Z FREYA MD Unavailable Unavailable PARNES, Z FREYA MD Unavailable Unavailable PARNES, Z FREYA MD Unavailable Unavailable PARNES, Z FREYA MD Unavailable Unavailable PARNES, Z FREYA MD Unavailable Unavailable PARNES, Z FREYA MD Unavailable Unavailable PARNES, Z FREYA MD Unavailable Unavailable PARNES, Z FREYA MD Unavailable Unavailable PARNES, Z FREYA MD Unavailable Unavailable PARNES, Z FREYA MD Unavailable Unavailable PARNES, Z FREYA MD Unavailable Unavailable PARNES, Z FREYA MD Unavailable Unavailable PARNES, Z FREYA MD Unavailable Unavailable PARNES, Z FREYA MD Unavailable Unavailable PARNES, Z FREYA MD Unavailable Unavailable PARNES, Z FREYA MD Unavailable Unavailable PARNES, Z FREYA MD Unavailable Unavailable PARNES, Z FREYA MD Unavailable Unavailable PARNES, Z FREYA MD Unavailable Unavailable PARNES, Z FREYA MD Unavailable Unavailable PARNES, Z FREYA MD Unavailable Unavailable PARNES, Z FREYA MD Unavailable Unavailable Edwige Green FINISHER HAND Unavailable Unavailable Peter, D Joe FINISHER HAND Unavailable Unavailable Peter, D Joe FINISHER HAND Unavailable Unavailable Peter, D Joe FINISHER HAND Unavailable Unavailable Peter, D Joe FINISHER HAND Unavailable Unavailable Peter, D Joe FINISHER HAND Unavailable Unavailable Peter, D Joe FINISHER HAND Unavailable Unavailable Peter, D Joe FINISHER HAND Unavailable Unavailable Peter, D Joe FINISHER HAND Unavailable Unavailable Peter, D Joe FINISHER HAND Unavailable Unavailable Peter, D Joe FINISHER HAND Unavailable Unavailable Peter, D Joe FINISHER HAND Unavailable Unavailable Peter, D Joe FINISHER HAND Unavailable Unavailable Peter, D Joe FINISHER HAND Unavailable Unavailable Peter, D Joe FINISHER HAND Unavailable Unavailable Peter, D Joe FINISHER HAND Unavailable Unavailable Peter, D Joe FINISHER HAND Unavailable Unavailable Peter, D Joe FINISHER HAND Unavailable Unavailable Peter, D Joe FINISHER HAND Unavailable Unavailable Peter, D Oje FINISHER HAND Unavailable Unavailable Peter, D Joe FINISHER HAND Unavailable Unavailable Peter, D Joe FINISHER HAND Unavailable Unavailable Peter, D Joe FINISHER HAND Unavailable Unavailable Peter, D Joe FINISHER HAND Unavailable Unavailable Peter, D Joe FINISHER HAND Unavailable Unavailable Peter, D Joe FINISHER HAND Unavailable Unavailable Peter, D Joe FINISHER HAND Unavailable Unavailable Peter, D Joe FINISHER HAND Unavailable Unavailable Peter, D Joe FINISHER HAND Unavailable Unavailable Peter, D Joe FINISHER HAND Unavailable Unavailable Peter, D Joe FINISHER HAND Unavailable Unavailable Peter, D Joe FINISHER HAND Unavailable Unavailable Peter, D Joe FINISHER HAND Unavailable Unavailable Peter, D Joe FINISHER HAND Unavailable Unavailable Peter, D Joe FINISHER HAND Unavailable Unavailable Peter, D Joe FINISHER HAND Unavailable Unavailable Sheela, D Gavino PA Unavailable Unavailable Sheela, D Gavino PA Unavailable Unavailable Sheela, D Gavino PA Unavailable Unavailable Sheela, D Gavino PA Unavailable Unavailable Sheela, D Gavino PA Unavailable Unavailable Sheela, D Gavino PA Unavailable Unavailable Sheela, D Gavino PA Unavailable Unavailable Sheela, D Gavino PA Unavailable Unavailable Sheela, D Gavino PA Unavailable Unavailable Sheela, D Gavino PA Unavailable Unavailable Sheela, D Gavino PA Unavailable Unavailable Sheela, D Gavino PA Unavailable Unavailable Sheela, D Gavino PA Unavailable Unavailable Sheela, D Gavino PA Unavailable Unavailable Sheela, D Gavino PA Unavailable Unavailable Sheela, D Gavino PA Unavailable Unavailable Sheela, D Gavino PA Unavailable Unavailable Sheela, D Gavino PA Unavailable Unavailable Sheela, D Gavino PA Unavailable Unavailable Sheela, D Gavino PA Unavailable Unavailable Sheela, D Gavino PA Unavailable Unavailable Sheela, D Gavino PA Unavailable Unavailable Sheela, D Gavino PA Unavailable Unavailable Sheela, D Gavino PA Unavailable Unavailable Sheela, D Gavino PA Unavailable Unavailable Sheela, D Gavino PA Unavailable Unavailable Sheela, D Gavino PA Unavailable Unavailable Sheela, D Gavino PA Unavailable Unavailable Sheela, D Gavino PA Unavailable Unavailable Sheela, D Gavino PA Unavailable Unavailable Sheela, D Gavino PA Unavailable Unavailable Sheela, D Gavino PA Unavailable Unavailable Sheela, D Gavino PA Unavailable Unavailable Sheela, D Gavino PA Unavailable Unavailable Sheela, D Gavino PA Unavailable Unavailable Sheela, D Gavino PA Unavailable Unavailable Sheela, D Gavino PA Unavailable Unavailable Sheela, D Gavino PA Unavailable Unavailable Sheela, D Gavino PA Unavailable Unavailable Sheela, D Gavino PA Unavailable Unavailable Sheela, D Gavino PA Unavailable Unavailable Sheela, D Gavino PA Unavailable Unavailable Sheela, D Gavino PA Unavailable Unavailable Sheela, D Gavino PA Unavailable Unavailable Sheela, D Gavino PA Unavailable Unavailable Sheela, D Gavino PA Unavailable Unavailable Sheela, D Gavino PA Unavailable Unavailable Sheela, D Gavino PA Unavailable Unavailable Sheela, D Gavino PA Unavailable Unavailable Sheela, D Gavino PA Unavailable Unavailable Sheela, D Gavino PA Unavailable Unavailable Sheela, D Gavino PA Unavailable Unavailable Sheela, D Gavino PA Unavailable Unavailable Sheela, D Gavino PA Unavailable Unavailable Sheela, D Gavino PA Unavailable Unavailable Sheela, D Gavino PA Unavailable Unavailable Sheela, D Gavino PA Unavailable Unavailable Sheela, D Gavino PA Unavailable Unavailable Sheela, D Gavino PA Unavailable Unavailable Sheela, D Gavino PA Unavailable Unavailable Sheela, D Gavino PA Unavailable Unavailable Sheela, D Gavino PA Unavailable Unavailable Sheela, D Gavino PA Unavailable Unavailable Sheela, D Gavino PA Unavailable Unavailable Sheela, D Gavino PA Unavailable Unavailable Sheela, D Gavino PA Unavailable Unavailable Sheela, D Gavino PA Unavailable Unavailable Sheela, D Gavino PA Unavailable Unavailable Lama, L Pushpa RPA Unavailable Unavailable Lama, L Pushpa RPA Unavailable Unavailable Lama, L Pushpa RPA Unavailable Unavailable Lama, L Pushpa RPA Unavailable Unavailable Lama, L Pushpa RPA Unavailable Unavailable Lama, L Pushpa RPA Unavailable Unavailable Lama, L Pushpa RPA Unavailable Unavailable Lama, L Pushpa RPA Unavailable Unavailable Lama, L Pushpa RPA Unavailable Unavailable Lama, L Pushpa RPA Unavailable Unavailable Lama, L Pushpa RPA Unavailable Unavailable Lama, L Pushpa RPA Unavailable Unavailable Lama, L Pushpa RPA Unavailable Unavailable Lama, L Pushpa RPA Unavailable Unavailable Lama, L Pushpa RPA Unavailable Unavailable Lama, L Pushpa RPA Unavailable Unavailable Lama, L Pushpa RPA Unavailable Unavailable Lama, L Pushpa RPA Unavailable Unavailable Lama, L Pushpa RPA Unavailable Unavailable Lama, L Pushpa RPA Unavailable Unavailable Lama, L Pushpa RPA Unavailable Unavailable Lama, L Pushpa RPA Unavailable Unavailable Lama, L Pushpa RPA Unavailable Unavailable Lama, L Pushpa RPA Unavailable Unavailable Lama, L Pushpa RPA Unavailable Unavailable Lama, L Pushpa RPA Unavailable Unavailable Lama, L Pushpa RPA Unavailable Unavailable Lama, L Pushpa RPA Unavailable Unavailable Lama, L Pushpa RPA Unavailable Unavailable Lama, L Pushpa RPA Unavailable Unavailable Lama, L Pushpa RPA Unavailable Unavailable Lama, L Pushpa RPA Unavailable Unavailable NEEDED NEEDED, INFO Unavailable Unavailable Peter, D Joe FINISHER HAND Unavailable Unavailable Peter, D Joe FINISHER HAND Unavailable Unavailable Peter, D Joe FINISHER HAND Unavailable Unavailable Peter, D Joe FINISHER HAND Unavailable Unavailable Peter, D Joe FINISHER HAND Unavailable Unavailable Peter, D Joe FINISHER HAND Unavailable Unavailable Peter, D Joe FINISHER HAND Unavailable Unavailable Peter, D Joe FINISHER HAND Unavailable Unavailable Peter, D Joe FINISHER HAND Unavailable Unavailable Peter, D Joe FINISHER HAND Unavailable Unavailable Peter, D Joe FINISHER HAND Unavailable Unavailable Peter, D Joe FINISHER HAND Unavailable Unavailable Peter, D Joe FINISHER HAND Unavailable Unavailable Peter, D Joe FINISHER HAND Unavailable Unavailable Peter, D Joe FINISHER HAND Unavailable Unavailable Peter, D Joe FINISHER HAND Unavailable Unavailable Peter, D Joe FINISHER HAND Unavailable Unavailable Peter, D Joe FINISHER HAND Unavailable Unavailable Peter, D Joe FINISHER HAND Unavailable Unavailable Peter, D Joe FINISHER HAND Unavailable Unavailable Peter, D Joe FINISHER HAND Unavailable Unavailable Peter, D Joe FINISHER HAND Unavailable Unavailable Peter, D Joe FINISHER HAND Unavailable Unavailable Peter, D Joe FINISHER HAND Unavailable Unavailable Peter, D Joe FINISHER HAND Unavailable Unavailable Peter, D Joe FINISHER HAND Unavailable Unavailable Peter, D Joe FINISHER HAND Unavailable Unavailable Peter, D Joe FINISHER HAND Unavailable Unavailable Peter, D Joe FINISHER HAND Unavailable Unavailable Peter, D Joe FINISHER HAND Unavailable Unavailable Peter, D Joe FINISHER HAND Unavailable Unavailable Peter, D Joe FINISHER HAND Unavailable Unavailable Peter, D Joe FINISHER HAND Unavailable Unavailable Peter, D Joe FINISHER HAND Unavailable Unavailable Peter, D Joe FINISHER HAND Unavailable Unavailable Peter, D Joe FINISHER HAND Unavailable Unavailable Edwige Dumont MD Unavailable Unavailable Edwige Dumont MD Unavailable Unavailable Edwige Dumont MD Unavailable Unavailable Vaneenenaam, Edwige Richards MD Unavailable Unavailable Vaneenenaam, Edwige Richards MD Unavailable Unavailable Vaneenenaam, Edwige Richards MD Unavailable Unavailable Vaneenenaam, Edwige Richards MD Unavailable Unavailable Vaneenenaam, Edwige Richards MD Unavailable Unavailable Vaneenenaam, Edwige Richards MD Unavailable Unavailable Vaneenenaam, Edwige Richards MD Unavailable Unavailable Vaneenenaam, Edwige Richards MD Unavailable Unavailable Vaneenenaam, Edwige Richards MD Unavailable Unavailable Vaneenenaam, Edwige Richards MD Unavailable Unavailable Vaneenenaam, Edwige Richards MD Unavailable Unavailable Vaneenenaam, Edwige Richards MD Unavailable Unavailable Vaneenenaam, Edwige Richadrs MD Unavailable Unavailable Vaneenenaam, Edwige Richards MD Unavailable Unavailable Vaneenenaam, Edwige Richards MD Unavailable Unavailable Vaneenenaam, Edwige Richards MD Unavailable Unavailable Vaneenenaam, Edwige Richards MD Unavailable Unavailable Vaneenenaam, Edwige Richards MD Unavailable Unavailable Vaneenenaam, Edwige Richards MD Unavailable Unavailable Vaneenenaam, Edwige Richards MD Unavailable Unavailable Vaneenenaam, Edwige Richards MD Unavailable Unavailable Vaneenenaam, Edwige Richards MD Unavailable Unavailable Vaneenenaam, Edwige Richards MD Unavailable Unavailable Vaneenenaam, Edwige Richards MD Unavailable Unavailable Vaneenenaam, Edwige Richards MD Unavailable Unavailable Vaneenenaam, Edwige Richards MD Unavailable Unavailable Vaneenenaam, Edwige Richards MD Unavailable Unavailable Vaneenenaam, Edwige Richards MD Unavailable Unavailable Vaneenenaam, Edwige Richards MD Unavailable Unavailable Vaneenenaam, Edwige Richards MD Unavailable Unavailable Vaneenenaam, Edwige Richards MD Unavailable Unavailable Vaneenenaam, Edwige Richards MD Unavailable Unavailable Vaneenenaam, Edwige Richards MD Unavailable Unavailable Vaneenenaam, Edwige Richards MD Unavailable Unavailable Vaneenvivianeam, Edwige Richards MD Unavailable Unavailable Vaneenenaam, Edwige Richards MD Unavailable Unavailable Vaneenenaam, Edwige Richards MD Unavailable Unavailable Vaneenenaam, Edwige Richards MD Unavailable Unavailable Vaneenvivianeam, Edwige Richards MD Unavailable Unavailable Vaneenvivianeam, Edwige Richards MD Unavailable Unavailable Vanashelyam, Edwige Richards MD Unavailable Unavailable Vaneenvivianeam, Edwige Richards MD Unavailable Unavailable Vaneenenaam, Edwige Richards MD Unavailable Unavailable NOT, SPECIFIED Unavailable Unavailable Hegard, Christin [employer]P MARKET[employer] Unavailable Unavailable Hegard, Christin [employer] Unavailable Unavailable Hegard, Christin [employer] Unavailable Unavailable Hegard, Christin [employer] Unavailable Unavailable Hegard, Christin [employer] Unavailable Unavailable Hegard, Christin [employer] Unavailable Unavailable Hegard, Christin [employer] Unavailable Unavailable Hegard, Christin [employer] Unavailable Unavailable Hegard, Chrsitin [employer] Unavailable Unavailable Hegard, Christin [employer]ET[employer] Unavailable Unavailable Hegard, Christin [employer]ET[employer] Unavailable Unavailable Hegard, Christin [employer] MARKETING Unavailable Unavailable Hegard, Christin [employer]ET[employer] Unavailable Unavailable Hegard, Christin [employer]ET[employer] Unavailable Unavailable Hegard, Christin [employer] Unavailable Unavailable Hegard, Christin [employer] Unavailable Unavailable Hegard, Christin [employer] Unavailable Unavailable Re-disclosure Warning The records that you are about to access may contain information from federally-assisted alcohol or drug abuse programs. If such information is present, then the following federally mandated warning applies: This information has been disclosed to you from records protected by federal confidentiality rules (42 CFR part 2). The federal rules prohibit you from making any further disclosure of this information unless further disclosure is expressly permitted by the written consent of the person to whom it pertains or as otherwise permitted by 42 CFR part 2. A general authorization for the release of medical or other information is NOT sufficient for this purpose. The Federal rules restrict any use of the information to criminally investigate or prosecute any alcohol or drug abuse patient.The records that you are about to access may contain highly sensitive health information, the redisclosure of which is protected by Article 27-F of the [facility] Public Health law. If you continue you may have access to information: Regarding HIV / AIDS; Provided by facilities licensed or operated by the [facility] Office of Mental Health; or Provided by the [facility] Office for People With Developmental Disabilities. If such information is present, then the following [facility] mandated warning applies: This information has been disclosed to you from confidential records which are protected by state law. State law prohibits you from making any further disclosure of this information without the specific written consent of the person to whom it pertains, or as otherwise permitted by law. Any unauthorized further disclosure in violation of state law may result in a fine or correction sentence or both. A general authorization for the release of medical or other information is NOT sufficient authorization for further disc losure. Allergies and Adverse Reactions Type Description Substance Reaction Status Data Source(s ) No Known Drug Allergies No Known Drug Allergies [facility] No Known Environmental Allergies No Known Environmental Al lergies [facility] No Known Food Allergies No Known Food Allergies [facility] Family History Family Member Name Family Member Gender Family Member Status Date o f Status Description Data Source(s) Unknown Unknown Problem [facility] ([facility] pgf Unknown Male Problem [facility] ([facility]) Encounters Encounter Providers Location Date Indications Data Source(s ) Outpatient Attender: FREYA GRADY MDConsultant: SPECIFIED NO T 04/30/2021 11:19:00 AM EDT - 04/30/2021 11:19:00 AM EDT [facility] Outpatient Attender: Pushpa Pitts/Daryn/John/Jerry bone 04/17/2021 09:00:00 AM EDT [facility] ([facility]) Outpatient Attender: Gavino TYLER [place] [facility] 03:15:00 PM EDT [facility] ([facility] Outpatient [id number] [place] [address] 04/03/2021 12:00:00 AM EDT eCW1 ([facility]) Outpatient Attender: Christin BEAUCHAMPP Main Office 0 03/27/2021 12:30:00 PM EDT [facility] ([facility]) Outpatient Attender: FREYA GRADY MD 021 02:16:00 PM EDT - 02/20/2021 05:24:00 PM EDT [facility] Patient discharged. Office Visit Attender: Joe Green NP [facility] 2020 08:20:00 AM EDT [facility] ([facility]) Outpatient Attender: FREYA GRADY MDConsultant: SPECIFIED NO T 01/03/2021 08:18:00 AM EDT - 01/03/2021 08:18:00 AM EDT [facility] Outpatient Attender: FREYA GRADY MD 021 01:26:00 PM EDT - 01/30/2021 02:16:00 PM EDT [facility] Patient discharged. Outpatient Attender: Gavino MCKEONeferrer: Freeman TYLER [facility] 12/28/2020 09:16:00 AM EDT - 12/28/2020 09:16:00 AM EDT [facility] Outpatient Attender: Gavino TYLER [place] [facility] 01:00:00 PM EDT [facility] ([facility] Outpatient Attender: FREYA GRADY MD 10:38:00 AM EDT - 12/28/2020 01:26:00 PM [facility] Patient discharged. Office Visit Attender: Meenakshi Marcus MS, RPA-C [facility] 11/20/2020 08:40:00 AM EDT [facility] ([facility]) Outpatient Attender: FREYA GRADY MDConsultant: SPECIFIED NO T 11/20/2020 08:38:00 AM EDT - 11/20/2020 08:38:00 AM EDT [facility] Office Visit Attender: Joe Green NP [facility] 2020 08:00:00 AM EDT [facility] ([facility]) Outpatient Attender: FREYA GRADY MDConsultant: SPECIFIED NO T 10/23/2020 07:56:00 AM EDT - 10/23/2020 07:56:00 AM EDT [facility] Office Visit Attender: Meenakshi Marcus MS, RPA-C [facility] 10/16/2020 09:20:00 AM EDT [facility] ([facility] Outpatient Attender: FREYA GRADY MDConsultant: SPECIFIED NO T 10/16/2020 09:11:00 AM EDT - 10/16/2020 09:11:00 AM EDT [facility] Outpatient Attender: FREYA GRADY MDConsultant: SPECIFIED NO T 10/10/2020 06:15:00 AM EST - 10/10/2020 01:10:00 PM [facility] Patient discharged. Outpatient Attender: Joe Green NPConsultant: SPECIFIED N OT 10/05/2020 12:40:00 PM EST - 10/05/2020 01:40:00 PM [facility] Patient discharged. Outpatient Attender: FREYA GRADY MDAttender: Edwige gastelum MD 10/03/2020 10:12:00 AM EST - 11/30/2020 10:38:00 AM EDT [facility] Patient discharged. Outpatient Attender: Joe Green NPConsultant: SPECIFIED N OT 10/02/2020 07:56:22 AM EST - 10/03/2020 07:57:00 AM [facility] Patient discharged. Outpatient Attender: Edwige Dumont MDAttender: INFO N EEDED NEEDED 09/26/2020 02:03:00 PM EST - 09/28/2020 10:12:00 AM [facility] Patient discharged. Outpatient Attender: Gavino TYLER [place] [facility] 10:00:00 AM EST [facility] ([facility] Outpatient Attender: FREYA GRADY MDConsultant: SPECIFIED NO T 09/20/2020 10:14:00 AM EST - 09/20/2020 10:14:00 AM [facility] Outpatient Attender: Joe Green NP Family Practice 09/20/2020 0 9:20:00 AM EST [facility] ([facility]) Outpatient Attender: Shabana VEGA PA-C Physical Therapy 09/11/2020 08:45:00 AM EST [facility] ([facility]) Outpatient Attender: Shabana VEGA PA-C Physical Therapy 08/21/2020 09:15:00 AM EST [facility] ([facility]) Emergency Attender: MANFRED Peterserrer: Gavino TYLER 08/17/2020 10:48:00 AM EST - 08/17/2020 01:45:00 PM EST [facility] Patient discharged. Outpatient Attender: Gavino TYLER [place] [facility] 10/2019 07:45:00 AM EST [facility] ([facility] Immunizations Vaccine Date Status Description Data Source(s) COVID-19 VACCINE Moderna 06/01/2021 12:00:00 AM EDT completed [facility] Vaccine Series Complete: YESThis Data wa s Submitted to [facility] [employer]. COVID-19 VACCINE Moderna 10/30/2020 12:00:00 AM EDT completed [facility] Vaccine Series Complete: YESThis Data wa s Submitted to [facility] [employer]. COVID-19 VACCINE Moderna 10/02/2020 12:00:00 AM EST completed [facility] Vaccine Series Complete: NOThis Data was Submitted to [facility] [employer]. Medications Medication Brand Name Start Date Product Form Dose Route Admi nistrative Instructions Pharmacy Instructions Status Indications Reaction Description Data Source(s) SUPREP BOWEL PREP KIT 17.5-3.13-1.6 gram SODIUM, POTASSIUM,M AG SULFATES 06/05/2021 12:00:00 AM EDT [facility] 354 TAKE PER DOCTOR'S BOWEL PREP INSTRUCTIONS TAKE PER DOCTOR'S BOWEL PREP INSTRUCTIONS SOLD: 06/16/2021 [facility] 60 mcg (15 mcg x 4)/0.5 mL 05/09/2021 12:00:00 AM EDT syringe 0 DIRECTED DIRECTED SOLD: 05/09/2021 [facility] Moderna Covid-19 Vaccine Moderna Covid-19 Vaccine 12/26/2020 12:00: 00 AM EDT active [facility] ([facility] atorvastatin 20 MG Oral Tablet Atorvastatin Calcium 12/19/2020 1 2:00:00 AM EDT active [facility] ( [facility] 5-325 mg 10/10/2020 12:00:00 AM EST tablet 48 TAKE 1-2 TABLETS BY MOUTH EVERY 4-6 HOURS NEEDED FOR PAIN MAXIMUM DAILY DOSE = 8 TABLETS TAKE 1-2 TABLETS BY MOUTH EVERY 4-6 HOURS NEEDED FOR PAIN MAXIMUM DAILY DOSE = 8 TABLETS SOLD: 10/10/2020 [facility] 5 mg 10/10/2020 12:00:00 AM EST tablet,delayed release (DR/EC) 10 TAKE 1 TABLET BY MOUTH DAILY FOR STOOL SOFTENER TAKE 1 TABLET BY MOUTH DAILY FOR STOOL SOFTENER SOLD: 10/10/2020 [facility] 5 mg 10/10/2020 12:00:00 AM EST tablet,delayed release (DR/EC) 10 TAKE 1 TABLET BY MOUTH DAILY FOR STOOL SOFTENER TAKE 1 TABLET BY MOUTH DAILY FOR STOOL SOFTENER SOLD: 12/02/2020 [facility] 8 HR Acetaminophen 650 MG Extended Release Oral Tablet [Tyle nol] Tylenol 8 Hour 10/01/2020 12:00:00 AM EST active [facility] ([facility]) 5-300 mg 09/19/2020 12:00:00 AM EST tablet 20 TAKE 1-2 TABLETS BY MOUTH EVERY 4 TO 6 HOURS NEEDED FOR PAIN MAXIMUM DAILY DOSE = 4 TABLETS TAKE 1-2 TABLETS BY MOUTH EVERY 4 TO 6 HOURS NEEDED FOR PAIN MAXIMUM DAILY DOSE = 4 TABLETS SOLD: 09/19/2020 [facility] Acetaminophen 300 MG / Hydrocodone Bitartrate 5 MG Ora l Tablet [Vicodin] Vicodin 09/19/2020 12:00:00 AM EST active [facility] ([facility]) 4 mg 09/11/2020 12:00:00 AM EST tablets,dose pack 21 TAKE BY MOUTH DIRECTED ON SHEET TAKE BY MOUTH DIRECTED ON SHEET SOLD: 09/11/2020 [facility] Methylprednisolone 4 MG Oral Tablet [Medrol] Medrol 03/2021 12:00:00 AM EST active [facility] ( [facility]) tramadol hydrochloride 50 MG Oral Tablet Tramadol HCL 08/21/2020 12:00:00 AM EST active [facility] ([facility] 50 mg 08/21/2020 12:00:00 AM EST tablet 18 TAKE ONE TABLET BY MOUTH EVERY 8 HOURS NEEDED FOR PAIN MAXIMUM DAILY DOSE = 3 TAKE ONE TABLET BY MOUTH EVERY 8 HOURS NEEDED FOR PAIN MAXIMUM DAILY DOSE = 3 SOLD: 08/21/2020 [facility] Lidocaine 0.05 MG/MG Topical Ointment Lidocaine 07/06/2020 12:00:00 AM EST active [facility] ([facility] Insurance Providers Payer name Policy type / Coverage type Policy ID Covered alliance party ID Covered alliance party's relationship to ye Policy Ye Plan Information BS [facility] Part B [id number] Self S [id number] BS [facility] Part B [id number] Self S [id number] Aetna (pr) Commercial [id number] Family Dependent [id number] [employer] [place] [id number] 18 [id number] [employer] [place] [id number] S [id number] [employer] [place] [id number] S [id number] EXCELL[employer] BCBS B [id number] S YND [id number] SELF PAY UNAVAILABLE S UNAVAILA BLE [employer] [place] WATN 306/806 [id number] SP [id number] [place] PPO 302/307 [id number] SP [id number] [employer] [place] WATN 306/806 [id number] SP [id number] [employer] [place] [id number] HU2 [id number] BCBS/Excellus Commercial [id number] Self [id number] [employer] [place] [place] O [id number] S [id number] ANSI-Commercial [id number] [employer] [place] [employer] [place] [id number] HU2 [id number] Aetna Ppo/Pos/Nap/MC Commercial [id number] Family Dependent W [id number] [employer] [place] [employer] [place] [id number] HU2 [id number] Aetna Ppo/Pos/Nap/MC Commercial [id number] Family Dependent [employer] [place] [employer] [id number] HU2 [id number] AETNA O [id number] P [id number] [employer] [facility] [facility] P [id number] S [id number] [employer] [id number] [facility] PHY [id number] SP [id number] EXCELLUS BCBS P [id number] S PPA [id number] BCBS [place] 010/510 [id number] HU2 [id number] [place] WATN PPO 302/307 [id number] SP [id number] BLUE CROSS BLUE SHIELD -PHYSICIAN CO [id number] BLUE CROSS BLUE SHIELD -O/P CO [id number] AETNA -O/P [id number] [place]BS [place] WATN PPO 302/307 [id number] SP [id number] [place]BS [place] WATN PPO 302/307 [id number] SP [id number] Problems, Conditions, and Diagnoses Code Display Name Description Problem Type Effective Dates Data Source(s) Z98.890 OTHER SPECIFIED POSTPROCEDURAL STATES OT HER SPECIFIED POSTPROCEDURAL STATES Diagnosis 02/06/2021 03:00:00 PM [facility] l M25.511 Pain in right shoulder PAIN IN RIGHT SHOULDER Diagnosi s 02/06/2021 03:00:00 PM [facility] S46.811D Strain of other muscles, fas kristin and tendons at shoulder and upper arm level, right arm, subsequent encounter STRAIN OF MUSC/FASC/TEND AT SHLDR/UP ARM , RIGHT ARM, SUBS Diagnosis 02/06/2021 03:00:00 PM [facility] E78.5 Hyperlipidemia, unspecified HYPERLIPIDEMIA, UNSPECIFIE D Diagnosis 12/28/2020 09:16:00 AM [facility] R73.01 Impaired fasting glucose IMPAIRED FASTING GLUCOSE Diag nosis 12/28/2020 09:16:00 AM [facility] I10 Essential (primary) hypertension ESSENTIAL (PRIMARY) H YPERTENSION Diagnosis 12/28/2020 09:16:00 AM [facility] Z47.89 Encounter for other orthopedic aftercare ENCOUNTER FOR OTHER ORTHOPEDIC AFTERCARE Diagnosis 12/05/2020 03:50:00 PM [facility] l Z4789 Encounter for other orthopedic aftercare Encounter for other orthopedic aftercare Diagnosis 11/20/2020 08:38:00 AM EDT [facility] Z4802 Encounter for removal of sutures Encounter for r emoval of sutures Diagnosis 10/23/2020 07:56:00 AM EDT [facility] R13204 Personal history of nicotine dependence Personal history of nicotine dependence Diagnosis 10/10/2020 06:15:00 AM [facility] M898X1 Other specified disorders of bone, shoul jesus Other specified disorders of bone, shoulder Diagnosis 10/10/2020 06:15:00 AM [facility] I10 Essential (primary) hypertension Essential (primary) h ypertension Diagnosis 10/10/2020 06:15:00 AM [facility] M7551 Bursitis of right shoulder Bursitis of right shoulder Diagnosis 10/10/2020 06:15:00 AM [facility] M7521 Bicipital tendinitis, right shoulder Bicipital t endinitis, right shoulder Diagnosis 10/10/2020 06:15:00 AM [facility] I84111 Primary osteoarthritis, right shoulder P rimary osteoarthritis, right shoulder Diagnosis 10/10/2020 06:15:00 AM [facility] Y998 Other external cause status Other external cause statu s Diagnosis 10/10/2020 06:15:00 AM [facility] Y9389 Activity, other specified Activity, other specified Di agnosis 10/10/2020 06:15:00 AM [facility] Y9289 Other specified places as the place of o ccurrence of the external cause Other specified places as the place of occurrence of the external cause Diagnosis 10/10/2020 06:15:00 AM [facility] [id number] Unspecified fall, initial encounter Unspecified fall, initial encounter Diagnosis 10/10/2020 06:15:00 AM [facility] [id number] Anterior subluxation of right humerus, i nitial encounter Anterior subluxation of right humerus, initial encounter Diagnosis 2020 06:15:00 AM [facility] [id number] Other displaced fracture of upper end of right humerus, initial encounter for closed fracture Other displaced fracture of upper end of right humerus, initial encounter for closed fracture Diagnosis 021 06:15:00 AM [facility] [id number] Strain of muscle, fascia and tendon of other parts of biceps, right arm, initial encounter Strain of muscle, fascia and tendon of o ther parts of biceps, right arm, initial encounter Diagnosis 10/10/2020 06:15:[address] [facility] L13079 Complete rotator cuff tear o r rupture of right shoulder, not specified as traumatic Complete rotator cuff tear or rupture of right shoulder, not specified as traumatic Diagnosis 10/10/2020 06:15:00 AM [facility] Z1152 ENCOUNTER FOR SCREENING FOR COVID-19 ENCOUNTER F OR SCREENING FOR COVID-19 Diagnosis 10/05/2020 12:40:00 PM [facility] Y39700 Encounter for other preprocedural examin ation Encounter for other preprocedural examination Diagnosis 10/03/2020 07:15:[address] [facility] X68754 Unspecified rotator cuff tea r or rupture of right shoulder, not specified as traumatic Unspecified rotator cuff tear or rupture of right shoulder, not specified as traumatic Diagnosis 09/20/2020 10:14:00 AM [facility] Y93.89 Activity, other specified ACTIVITY, OTHER SPECIFIED Di agnosis 08/17/2020 10:48:00 AM [facility] Y92.[address] in unspeci fied non-institutional (private) residence as the place of occurrence of the external [facility] Diagnosis 08/17/2020 10:48:00 AM [facility] l W00.0XXA Fall on same level due to ice and snow, initial encounter FALL ON SAME LEVEL DUE TO ICE AND SNOW, INITIAL EN Diagnosis 08/17/2020 10:48:00 AM [facility] Z79.899 Other assisted (current) drug therapy O THER [facility] PHYSICIAN (CURRENT) DRUG THERAPY Diagnosis 08/17/2020 10:48[facility] PURE HYPERCHOLESTEROLEMIA, UNSPECIFIED P URE HYPERCHOLESTEROLEMIA, UNSPECIFIED Diagnosis 08/17/2020 10:48:00 AM [facility] l S43.014A Anterior dislocation of right humerus, i nitial encounter ANTERIOR DISLOCATION OF RIGHT HUMERUS, INITIAL ENC Diagnosis 08/17/2020 10:48:0 0 AM [facility] S49.91XA Unspecified injury of right shoulder and upper arm, initial encounter UNSP INJURY OF RIGHT SHOULDER AND UPPER ARM, INIT ENCNTR Diagnosis 08/17/2020 10:48:00 AM [facility] [id number] Essential hypertension Essential hypertension Problem 04/17/2021 12:00:00 AM EDT [facility] ([facility], ) [id number] Cubital tunnel syndrome Cubital tunnel syndrome Proble m 10/01/2020 12:00:00 AM EST [facility] ([facility] ) [id number] Paresthesia of upper limb Paresthesia of upper limb Pr oblem 10/01/2020 12:00:00 AM EST [facility] ([facility] ) M75.101 Disorder of bursa of shoulder region Dis order of bursa of shoulder region Problem 09/20/2020 12:00:00 AM EST [facility] ([facility]) M75.21 Bicipital tenosynovitis Bicipital tenosynovitis Proble m 09/20/2020 12:00:00 AM EST [facility] ([facility]) [id number] Essential hypertension Essential hypertension Problem 09/19/2020 12:00:00 AM EST [facility] ([facility]) [id number] Pure hypercholesterolemia Pure hypercholesterolemia Pr oblem 09/19/2020 12:00:00 AM EST [facility] ([facility]) 10242816 Essential hypertension Essential hypertension Problem 08/21/2020 12:00:00 AM EST [facility] ([facility] Surgeries/Procedures Procedure Description Date Indications Data Source(s) OFFICE OUTPATIENT VISIT 15 MINUTES 04/30/2021 12:00:00 AM EDT [facility] ([facility]) OFFICE OUTPATIENT NEW 45 MINUTES 04/17/2021 12:00:00 A M EDT [facility] ([facility], ) OFFICE OUTPATIENT VISIT 25 MINUTES 04/03/2021 12:00:00 AM EDT [facility] ([facility] DESTRUCTION PREMALIGNANT LESION 1ST 03/27/2021 12:00:0 0 AM EDT [facility] ([facility]) OFFICE OUTPATIENT VISIT 25 MINUTES 03/27/2021 12:00:00 AM EDT [facility] ([facility]) OFFICE OUTPATIENT VISIT 25 MINUTES 12/26/2020 12:00:00 AM EDT [facility] ([facility] Needle electromyography, each extremity, with related paraspinal areas, when performed, done with nerve conduction, amplitude and latency/velocity study; complete, five or more muscles studied, innervated by three or more nerves or four or more spinal levels (list separately in addition to the code for primary procedure). 10/02/2020 12:00:00 AM EST MEDEN T ([facility] ) Needle Electromyography Non Extremity Done With Nerve Conduc tion 10/02/2020 12:00:00 AM EST [facility] ([facility] Nerve Conduction 9-10 Studies 10/02/2020 12:00:[address] [facility] ([facility] ) Results ID Date Data Source [id number] 06/16/2021 09:50:00 AM EST [facility] ([facility] Name Value Range Interpretation Code Description Data Sonja rce(s) Supporting Document(s) Laboratory test finding (navigational concept) Laboratory test result [facility] ([facility] ASSAY INFORMATION: Real Time RT-PCR NOTE: The COVID-19 assay has been cleared by the U.S. Food and Drug Administration under the Emergency Use Authorization (EUA). [facility] and [facility] are designated as high complexity laboratories by the Clinical Laboratory Improvement Amendments of 1988(CLIA) and are qualified to perform this test. Not Detected ID Date Data Source WWBC DIGITAL / KIT BILATERAL MAMMO SCREENING (Ultraso und if indicated) 04/03/2021 12:00:00 AM EDT [facility] Name Value Range Interpretation Code Description Data Sonja rce(s) Supporting Document(s) WWBC DIGITAL / KIT BILAT ERAL MAMMO SCREENING (Ultrasound if indicated) [facility]CW1 ([facility]) ID Date Data Source [id number] 12/28/2020 09:25:00 AM EDT [facility] ([facility] Name Value Range Interpretation Code Description Data Sonaj rce(s) Supporting Document(s) Trig 163 mg/dL 0-150 Above high normal [facility] ([facility] Chol 172 mg/dL 0-200 [facility] zzzLDL 95 mg/dL 0-100 [facility] HDL 44 mg/dL 40-60 [facility] CHDL 3.9 0.0-5.0 [facility] ID Date Data Source [id number] 12/28/2020 09:25:00 AM EDT [facility] Name Value Range Interpretation Code Description Data Sonja rce(s) Supporting Document(s) Laboratory test finding (navigational concept) 111.2 mg/dL [facility] ([facility] Laboratory test finding (navigational concept) 5.5 % 3.8-5.6 [facility] ([facility] <content>Diabetic > or = to 6.5%</conten t>
<content>Prediabetes 5.7- 6.4%</content>
<content>Normal <5.7</content>
<content></content> ID Date Data Source [id number] 12/28/2020 09:25:00 AM EDT [facility] ([facility] Name Value Range Interpretation Code Description Data Sonja rce(s) Supporting Document(s) BUN 24 mg/dL 7-18 Above high normal [facility] Glu 100 mg/dL 74-106 [facility] Cre 0.78 mg/dL 0.6-1.0 [facility] Na 143 mmol/L 136-145 [facility] K 4.6 mmol/L 3.5-5.1 [facility] CL 105 mmol/L 98-107 [facility] Co2 27 mmol/L 21-32 [facility] CA 8.8 mg/dL 8.5-10.1 [facility] GFR 76 mL/min [facility] <content>GFR IS CALCULATED IN mL/min/1.73m2</content>
<content></content>
<content>NORMAL FUNCTION: >90</content>
<content>MILDLY DECREASED: 60-89</content>
<content>MILDY TO MODERATELY DECREASED: 45-59</content>
<content>MODERATELY TO SEVERELY DECREASED: 30-44</content>
<content>SEVERELY DECREASED: 15- 29</content>
<content>RENAL FAILURE: <15</content>
<content></content> Gap 11.0 mmol/L 5-12 [facility] Alt 53 U/L 12-78 [facility] Ast 22 U/L 15-37 [facility] Alk 106 U/L 46-116 [facility] Tbili 0.3 mg/dL 0.2-1.0 [facility] Alb 3.5 gm/dL 3.4-5.0 [facility] TP 6.5 g/dL 6.4-8.2 [facility] ID Date Data Source [id number] 12/28/2020 10:34:00 AM EDT [facility] FAX [phone] Name Value Range Interpretation Code Description Data Sonja rce(s) Supporting Document(s) HGBA1C 5.5 % 3.8-5.6 [facility] Diabetic > or = to 6.5%Prediabetes 5.7-6 .4%Normal <5.7 ESTIMATED AVERAGE GLUCOSE 111.2 mg/dL [facility] ID Date Data Source [id number] 12/28/2020 10:34:00 AM EDT [facility] [phone] Name Value Range Interpretation Code Description Data Sonja rce(s) Supporting Document(s) CHOLESTEROL 172 mg/dL 0-200 [facility] TRIGLYCERIDES 163 mg/dL 0-150 H [facility] LDL CHOLESTEROL 95 mg/dL 0-100 [facility] HDL CHOLESTEROL 44 mg/dL 40-60 [facility] CHOL/HDL RATIO 3.9 0.0-5.0 [facility] ID Date Data Source [id number] 12/28/2020 10:34:00 AM EDT [facility] [phone] Name Value Range Interpretation Code Description Data Sonja rce(s) Supporting Document(s) GLUCOSE 100 mg/dL 74-106 [facility] BLOOD UREA NITROGEN 24 mg/dL 7-18 H [facility] ital CREATININE 0.78 mg/dL 0.6-1.0 [facility] SODIUM 143 mmol/L 136-145 [facility] POTASSIUM 4.6 mmol/L 3.5-5.1 [facility] CHLORIDE 105 mmol/L 98-107 [facility] CO2 27 mmol/L 21-32 [facility] CALCIUM 8.8 mg/dL 8.5-10.1 [facility] ANION GAP 11.0 mmol/L 5-12 [facility] GLOMERULAR FILTRATION RATE 76 mL/min [facility] GFR IS CALCULATED IN mL/min/1.73m2 EB L FUNCTION: >90MILDLY DECREASED: 60-89MILDY TO MODERATELY DECREASED: 45-59 MODERATELY TO SEVERELY DECREASED: 30-44SEVERELY DECREASED: 15-29RENAL FAILURE: <15 AST 22 U/L 15-37 [facility] ALT 53 U/L 12-78 [facility] ALKALINE PHOSPHATASE 106 U/L 46-116 [facility] pital TOTAL BILIRUBIN 0.3 mg/dL 0.2-1.0 [facility] TOTAL PROTEIN 6.5 g/dl 6.4-8.2 [facility] ALBUMIN 3.5 gm/dL 3.4-5.0 [facility] ID Date Data Source [id number] 10/16/2020 12:45:00 [place] [address] OPERATIVE SUMMARYNAME: AMALIA STINSONFADUMO Corona DATE OF : 1960 PHYS: Freya Grady MD DATE: 10/10/20 MR#: [id number] OF PROCEDURE: 10/10/20PREOPERATIVE DIAGNOSIS: 1. Right shoulder long biceps tendon tendinosis. 2. Right shoulder subacromial bursitis. 3. Right shoulder massive rotator cuff tear.POSTOPERATIVE DIAGNOSIS: 1. Right shoulder long biceps tendon partial tendon tear and anterior subluxation. 2. Right shoulder full tendon tear of the subscapularis tendon (large size tear, mediocre tissue quality). 3. Right shoulder subacromial bursitis and downsloping acromion. 4. Right shoulder full tendon tear of the supraspinatus and infraspinatus tendons (massive size tear, mediocre to poor tissue quality, delaminated tendon).SURGEON: Freya Grady MD.QUAL FIELD MANAGER: BAYLEE CovarrubiasON FOR CHILD WELFARE SPECIALIST: Joe Green NP provided essential assistance during this caseincluding careful retraction of vital structures, safe manipulation of anatomic structures,stabilization of scope, wound closure and dressing.ANESTHESIA: General and interscalene block.ANESTHESIOLOGIST: Damien Dodge Nurse Anesthesiologist.SURGICAL TIME: 111 minutes.OPERATION PERFORMED: 1. Right shoulder evaluation under anesthesia. 2. Right shoulder diagnostic arthroscopy. 3. Right shoulder arthroscopic biceps tenotomy. 4. Right shoulder arthroscopic repair of subscapularis full tendon tear ([employer] Healicoil Regenesorb 5.5 mm double-loaded anchor x1). 5. Right shoulder arthroscopic subacromial decompression plus acromioplasty. 1 [place] [address] OPERATIVE SUMMARYNAME: AMALIA Corona DATE OF : 1960 PHYS: Freya Grady MD DATE: 10/10/20 MR#: [id number] 6. Right shoulder arthroscopic repair of supraspinatus and infraspinatus full tendon tear ([employer] Healicoil Regenesorb 5.5 mm double-loaded anchor x2, Mitek VersiLock anchor x1, Fiberwire #2 x1).ESTIMATED BLOOD LOSS: Minimal.SPECIMENS: None.IMPLANTS: [employer] Healicoil Regenesorb 5.5 mm double-loaded anchor x3, MitekVersiLock anchor x1, Fiberwire #2 x1.SPONGE COUNT: Correct.NEEDLE COUNT: Correct.COMPLICATIONS: None.INDICATION FOR PROCEDURE:The patient is a 60-year-old female with pain and weakness in her right dominant shoulder for thelast 2 years status post recurrent falls, the last one 10 weeks ago. The patient's preoperativeevaluation and imaging studies, including MRI suggested the above-noted diagnosis. The patientfailed conservative treatment, therefore, it was elected at this point to perform the above-notedsurgery.OPERATIVE FINDINGS:Examination under anesthesia demonstrated stable, supple shoulder. Forward flexion was 160degrees, external rotation 70 degrees, internal rotation 60 degrees. At time of arthroscopy, thecartilage of the humeral head and glenoid were found to be normal. The labrum was well-attachedall around the glenoid. The capsule appeared to be normal. The biceps tendon was partially torn andanteriorly subluxated. The subscapularis tendon had a full tendon tear. The remnant tendon qualitywas mediocre. There was also a full thickness tear of the infraspinatus and supraspinatus tendons atthe tendons attachment to the greater tuberosity. The tear was measured to be massive in size. Thetendon quality was mediocre to poor with delamination. The bone quality was mediocre. The otherrotator cuff tendons were completely normal. In the subacromial space, there was a thick bursitisand downsloping acromion.DESCRIPTION OF PROCEDURE: [address] [place] [address] OPERATIVE SUMMARYNAME: AMALIA Corona DATE OF : 1960TTENDING PHYS: Freya Grady MD DATE: 10/10/20 MR#: [id number] patient was brought to the operating room and placed on the operating table in beach chair andsupine position. After adequate anesthesia was obtained, the patient was placed in the uprightseated position. The right arm was then elevated, prepped and draped in the usual sterile fashion.The patient received 2 gram of Ancef IV preoperatively as prophylaxis against infection.Arthroscopy was then performed through the standard portals with findings as noted above.ARTHROSCOPIC BICEPS TENOTOMY:Visualizing directly in the glenohumeral joint, the biceps tendon was tenotomized with shaver andradiofrequency device. The radiofrequency device was used to debride the stump of the tendontissue. After the tenotomy, it was verified that the biceps tendon was retracted all the way into thebicipital groove.ARTHROSCOPIC SUBSCAPULARIS TENDON TEAR REPAIR:Scoping from the posterior portal and instrumenting through the anterior portal and the lateralportal, I used a motorized shaver to debride the tear of the subscapularis tendon to stable margins,and also the lesser tuberosity, removing all the soft tissue from the bone, creating effective bonesurface for soft tissue healing. Then using the probe and spinal needle, I evaluated the rest of thetendon quality, which was found to be excellent. Using the anterior portal, I inserted a Wolf &Nephew Healicoil Regenesorb 5.5 mm anchor, double- loaded, at the upper aspect of the lessertuberosity. Then, using the CleverapiOmatok device, I shuttled the suture through the subscapularistendon and tied them down using lasso-loop and simple knot tying technique alternatively. Then, Iused the probe and spinal needle through the anterior portal to evaluate the quality of the repair.The repair was found to be excellent and very stable to all range of motion of the shoulder, withoutany tension on the repair.ARTHROSCOPIC DEBRIDEMENT OF THE GREATER TUBEROSITY:Through a direct lateral portal, using a motorized shaver and radiofrequency device, I debrided thefootprint of the greater tuberosity and removed all the soft tissue from the bone, creating aroughened bone surface effective for soft tissue healing. The edge of the supraspinatus andinfraspinatus tendons were similarly debrided.ARTHROSCOPIC SUBACROMIAL DECOMPRESSION PLUS ACROMIOPLASTY:Using the 2-portal technique with motorized shaver and radiofrequency device, the bursa wasremoved from lateral to medial and from anterior to posterior. Then using a motorized neva in thesame sequence of steps, I flattened the acromion. The coracoacromial ligament was left intact. Therotator cuff tendons were inspected from their bursal side and the tear was identified. [address] [id number] OPERATIVE SUMMARYNAME: AMALIA ALFARO Cj DATE OF : 1960TTENDING PHYS: Freya Grady MD DATE: 10/10/20 MR#: [id number] SUPRASPINATUS AND INFRASPINATUS FULL THICKNESSTENDON TEAR REPAIR IN A DOUBLE ROW FASHION:Visualizing from the lateral portal and instrumenting through the anterolateral and posterolateralportals, I used one Fiberwire #2 suture to perform margin conversion of the medial aspect of thetendon tear. Then, I inserted 2 double- loaded Wolf & Nephew Healicoil Regenesorb 5.5 mmanchors adjacent to the articular margin of the joint on the footprint of the greater tuberosity, one atthe anterior area and one at the posterior area of the tear. Using the ZutuxeArtSquare-III device, I retrievedthe suture through the rotator cuff in transrotator cuff approach, being careful to separate thesutures apart so they would grasp the tendon in horizontal mattress fashion. I then retrieved thesuture through the cannula and tied them down with sliding locking knots in alternating half inches.The extra lengths of the suture were pulled out through a separate portal. The arthroscope was theninserted through the posterior portal and the cannula was placed through the direct lateral portal so Icould retrieve six sets of sutures through both sides of the knots. This was loaded onto a MitekVersiLock anchor. The arm was then abducted perpendicular to the orientation of the anchorinsertion. The anchor was inserted through the cannula just lateral to the greater tuberosityfootprint. It was packed into the bone. The sutures were pulled to tension and the anchor wasdelivered, locking the sutures down, pulling the sutures over the lateral edge of the greatertuberosity and pulling the tendon against the bone. The excess lengths of the sutures were removedusing arthroscopic scissors, completing the double row rotator cuff r epair. The arm was then rotatedinto internal and external rotation. There was freedom of movement and no tension on the repair.The repair was inspected using a probe from the synovial intra-articular side and from the bursalsubacromial side and found to be excellent, covering the footprint fully in a stable fashion.The portals were closed with interrupted 3-0 nylon sutures reinforced with steri-strips. The shoulderwas positioned in a shoulder immobilizer and Cryo-Cuff device. The patient was transferred to therecovery room in satisfactory condition, having tolerated the procedure very well.POSTOPERATIVE THERAPY PROTOCOL:The patient should use the Cryo-Cuff device for pain control. The patient will remain in theshoulder immobilizer for six weeks. After six weeks, active and active-assisted range of motionwill be started. On the first clinical follow up, I will teach the patient how to do elbow, wrist andfinger range of motion. I, Freya Grady, personally performed all elements of this surgery.DD: Freya Grady MD 10/15/20 18:51DT: MAR 10/16/20 00:18DS: Freya Grady MD 10/16/20 09:27 4 Name Value Range Interpretation Code Description Data Sonja rce(s) Supporting Document(s) ID Date Data Source [id number] 10/05/2020 09:06:00 AM EST [facility] Name Value Range Interpretation Code Description Data [facility] rce(s) Supporting Document(s) SARS coronavirus 2 RNA Not Detected [facility] This lab was ordered by [facility] and reported by [facility]. ID Date Data Source [id number] 10/06/2020 05:10:00 PM EST [facility] Name Value Range Interpretation Code Description Data [facility] rce(s) Supporting Document(s) SARS-CoV-2, JOSIAS Not Detected Not Detected [facility] This nucleic acid amplification test was developed and its performancecharacteristics determined by [facility]. Nucleic acidamplification tests include RT-PCR and TMA. This test has not beenFDA cleared or approved. This test has been authorized by FDA underan Emergency Use Authorization (EUA). This test is only authorizedfor the duration of time the declaration that circumstances existjustifying the authorization of the emergency use of in vitrodiagnostic tests for detection of SARS-CoV-2 virus and/or diagnosisof COVID-19 infection under section 564(b)(1) of the Act, 21 U.S.C.360bbb-3(b) (1), unless the authorization is terminated or revokedsooner.When diagnostic testing is negative, the possibility of a falsenegative result should be considered in the context of a patient'srecent exposures and the presence of clinical signs and symptomsconsistent with COVID- 19. An individual without symptoms of COVID-19and who is not shedding SARS-CoV-2 virus would expect to have anegative (not detected) result in this assay. ID Date Data Source [id number] 09/06/2020 12:00:00 AM EST [facility] Shabana Isbell Pa-C Patient Name: DOMINIC HOLLAND[address] [facility] Date of : 1960[place] [address]- Date of Exam: 09/06/2020#: Fax: [phone] EXAM: MRI SHOULDER RIGHT W/O&W/CONTRAST ARTHROGRAMCLINICAL INFORMATION: Status post fall and dislocation of right shoulder.Pre and post contrast 3T MRI of the right shoulder with shoulder MRIarthrogram was performed utilizing various sequences.There is a complete full thickness tear of the supraspinatus tendon withretraction of the musculotendinous junction approximately 3.5 cm. There isextensive full thickness tear of the infras pinatus tendon which appears william incomplete. There is a fairly high-grade partial tear of thesubscapularis tendon. The teres minor appears intact.There are moderate hypertrophic degenerative changes of theacromioclavicular joint. The acromion is Type II. The biceps tendon isdislocated medially out of the bicipital groove. Fluid fills the bicipitalgroove. There does appear to be a mild Hill-Sachs deformity of thesuperolateral humeral head, with underlying marrow edema. No abnormalsignal is seen in the deltoid muscle.There is a diffuse tear of the anterior labrum also undermining the bicepslabral complex and extending into the superior labrum. The inferior andposterior labrum appear diffusely frayed. There is a large joint effusion. There is diffuse chondromalacia at the glenohumeral joint.IMPRESSION:Complete full thickness tear supraspinatus tendon with retraction of themusculotendinous junction medially approximately 3.5 cm. There is a fullthickness incomplete tear of the infraspinatus tendon. There is ahigh-grade partial tear of the subscapularis tendon.Moderate hypertrophic degenerative changes acromioclavicular joint withType II acromion.Biceps tendon is displaced medially out of the bicipital groove. MildHill-Sachs deformity with underlying bone marrow edema in the proximalhumerus. Diffuse anterior labral tear undermines the biceps labral complexand extends into the superior labrum. The remaining portions of the labrumappear diffusely frayed.Large joint effusion extends into the subacromial and subdeltoid regions.Accredited by the [employer] in MR.Favio Brown, KULDEEP/Yanet you for referring DOMINIC HOLLAND to our office. Electronically Signed - RANULFO BROWN MD 09/06/20 17:08 Name Value Range Interpretation Code Description Data Sonja rce(s) Supporting Document(s) ID Date Data Source [id number] 09/06/2020 12:00:00 AM [facility] Shabana Isbell Pa-C Patient Name: AYANA HOLLAND [facility] Date of : 1960[place] [address]- Date of Exam: [facility]#: Fax: [phone] EXAM: INJECTION PROCEDURE FOR SHOULDER ARTHROGRAMRIGHT SHOULDER ARTHROGRAM:The procedure was performed by Giancarlo Wolf [facility], under the directsupervision of Dr. Brown.The benefits and risks including but not limited to pain, infection,bleeding and anaphylaxis were explained to the patient and informed consentwas obtained. The right glenohumeral joint space was localized usingfluoroscopic guidance. The skin was prepped and draped in a sterilefashion. 1% Lidocaine was used as a local anesthetic. Using fluoroscopicguidance, a #22 gauge spinal needle was inserted and advanced into theglenohumeral joint space. 1 cc of Omnipaque 300 was injected to verifyplacement. 11 cc of a solution containing 20 cc of sterile saline and 0.15cc of ProHance was injected into the joint space. The needle was removedand the patient was taken to MRI for post procedural imaging.The patient tolerated the procedure well and there were no immediatecomplications.Fluoroscopic images are performed with last image hold technology. Theseimages require no additional radiation to acquire.Fluoroscopy time was 3 seconds at 3 pulses/second. This is equal to .75seconds continuous fluoroscopy time which is a 75% reduction in radiation.Dictated by Giancarlo Wolf [facility], with Dr. Brown.Ranulfo Brown, KULDEEP/jmcThowardk you for referring DOMINIC HOLLAND to our office. Electronically Signed - RANULFO BROWN MD 09/06/20 17:09 Name Value Range Interpretation Code Description Data Sonja rce(s) Supporting Document(s) ID Date Data Source [id number] 09/06/2020 12:00:00 AM EST [facility] Shabana Isbell Pa-C Patient Name: AYANA HOLLAND [facility] Date of : 1960[place] [address]- Date of Exam: 1P#: Fax: [phone] EXAM: INJECTION PROCEDURE FOR SHOULDER ARTHROGRAMRIGHT SHOULDER ARTHROGRAM:The procedure was performed by ELLA Yin, under the directsupervision of Dr. Brown.The benefits and risks including but not limited to pain, infection,bleeding and anaphylaxis were explained to the patient and informed consentwas obtained. The right glenohumeral joint space was localized usingfluoroscopic guidance. The skin was prepped and draped in a sterilefashion. 1% Lidocaine was used as a local anesthetic. Using fluoroscopicguidance, a #22 gauge spinal needle was inserted and advanced into theglenohumeral joint space. 1 cc of Omnipaque 300 was injected to verifyplacement. 11 cc of a solution containing 20 cc of sterile saline and 0.15cc of ProHance was injected into the joint space. The needle was removedand the patient was taken to MRI for post procedural imaging.The patient tolerated the procedure well and there were no immediatecomplications.Fluoroscopic images are performed with last image hold technology. Theseimages require no additional radiation to acquire.Fluoroscopy time was 3 seconds at 3 pulses/second. This is equal to .75seconds continuous fluoroscopy time which is a 75% reduction in radiation.Dictated by ELLA Yin, with Dr. Brown.Ranulfo Brown, KULDEEP/jmcTkimmy you for referring DOMINIC HOLLAND to our office. Electronically Signed - RANULFO BROWN MD 09/06/20 17:09 Name Value Range Interpretation Code Description Data [facility](s) Supporting Document(s) ID Date Data Source [id number] 08/17/2020 06:22:00 PM EST [facility] Patient: DOMINIC HOLLAND [facility]VisitID: [id number] [place] [address] [phone], FRegistration Date/Time: 08/17/2020 09:52 Weight:79.3 kg. Height/Length:60 inches. BMI:34.1 PAST HISTORYProblems:Hypertension.Hypercholesterolemia. Medications:Atorvastatin Calcium Oral 20 mg, daily, last dose yesterday.Losartan Potassium Oral 100 mg, last dose yesterday. Allergies:No Known Drug Allergy. FAMILY HISTORYNo significant family medical history. (Electronically signed by Vincent Gay 08/17/2020 18:19) Name Value Range Interpretation Code Description Data [facility](s) Supporting Document(s) ID Date Data Source [id number] 08/17/2020 11:32:00 AM EST [facility] DATE OF EXAMINATION: 08/17/2020 11:13 EST HISTORY: Postreduction TECHNIQUE: 1 views of the right shoulder were obtained. FINDINGS: No evidence of acute fracture or dislocation. Alignment is normal.Acromioclavicular joint is normal. No aggressive osseous lesions or erosions.Bone mineral density is unremarkable. Visualized lung is clear. Visualized softtissues are normal. IMPRESSION: Proper post reduction. Electronically signed in [id number] by: Iker Dia M.D. 08/17/2020 11:26 EST Name Value Range Interpretation Code Description Data [facility](s) Supporting Document(s) ID Date Data Source [id number] 08/17/2020 11:02:00 AM EST [facility] DATE OF EXAMINATION: 08/17/2020 10:09 EST HISTORY: Injury TECHNIQUE: 3 views of the right shoulder were obtained. FINDINGS: Anterior dislocation of the humeral head with Hill-Sachs deformity is noted.There is no Bankhart lesion. Included portions of right upper lobe appearnormal. IMPRESSION: Anterior dislocation of humeral head as described above. Electronically signed in PS360 by: Iker Dia M.D. 08/17/2020 10:56 EST Name Value Range Interpretation Code Description Data Sonja rce(s) Supporting Document(s) ID Date Data Source [id number] 07/06/2020 09:03:00 AM EST [facility] Name Value Range Interpretation Code Description Data Sonja rce(s) Supporting Document(s) Cholesterol in HDL [Mass/volume] in Serum or Plasma 44 mg/dL 45-65 Below low normal [facility] ([facility] ) NORMAL RANGES Age WBC RBC HGB HCT MCV PLT Adult M 4.1-10.9 4.20-6.30 12.0-18.0 37.0-51.0 80-97 140-440 Adult F 4.1-10.9 4.04-5.48 12.0-18.0 37.0-51.0 80-97 140-440 0 -1 Yr 5.0-20.0 3.9-5.9 15-18 MV: 44 MV: 91 MV: 277 2-9 Yr. 6.0-17.0 3.8-5.4 11-13 MV: 37 MV: 78 MV: 300 10 Yrs. 5.0-13.0 3.8-5.4 12-15 MV: 39 MV: 80 MV: 250 NOTE: * FOR ADULT BLACK MALES AND FEMALES, NORMAL WBC IS 2.9-7.7 K/ML * FOR ADULT BLACK MALES AND FEMALES, NORMAL RBC,HGB, AND HCT IS 5% LESS SOURCE FOR DATA: [employer] DYN 1800 OPERATION MANUAL( AUTOMATED BLOOD COUNTS AND DIFF.) APPENDIX B-3 CHRONIC KIDNEY DISEASE STAGING PER NKF: MALE GFR INTERPRETATION: 20-49 YRS: >60 mL/min Normal 50-59 YRS: >56 mL/min Normal 60-69 YRS: >49 mL/min Normal 70-79 YRS: >42 mL/min Normal 80 and above >35 mL/min Normal FEMALE GRF INTERPRETATION: 20-39 YRS: >60 mL/min Normal 40-49 YRS: >58 mL/min Normal 50-59 YRS: >51 mL/min Normal 60-69 YRS: >45 mL/min Normal 70-79 YRS: >39 mL/min Normal 80 and above >32 mL/min NormalCLASSIFICATION CHOLESTEROL FOR ADULTS CHILDREN/ADOLESCENTS* DESIRABLE: <200 MG/DL <170 MG/DL BORDER-LINE HIGH RISK: 200-239 MG/DL 170-199 MG/DL HIGH RISK: >240 MG/DL >200 MG/DL CLASS. FOR PRIMARY LDL CHOL PREVENTION: LDL CHOL-CHILD/ADOLESCENTS* DESIRABLE: <130 MG/DL <110 MG/DL BORDERLINE-HIGH RISK: 130- 159 MG/DL 110-129 MG/DL HIGH RISK: >160 MG/DL >130 MG/DL *CHILDREN AND ADOLESCENTS REPRESENTS INDIVIDUALA AGED 2-19 YEARS EXCLUSIVE. Trig 187 mg/dL 40-200 [facility] NORMAL RANGES Age WBC RBC HGB HCT MCV PLT Adult M 4.1-10.9 4.20-6.30 12.0-18.0 37.0-51.0 80-97 140-440 Adult F 4.1-10.9 4.04-5.48 12.0-18.0 37.0-51.0 80-97 140-440 0 -1 Yr 5.0-20.0 3.9-5.9 15-18 MV: 44 MV: 91 MV: 277 2-9 Yr. 6.0-17.0 3.8-5.4 11-13 MV: 37 MV: 78 MV: 300 10 Yrs. 5.0-13.0 3.8-5.4 12-15 MV: 39 MV: 80 MV: 250 NOTE: * FOR ADULT BLACK MALES AND FEMALES, NORMAL WBC IS 2.9-7.7 K/ML * FOR ADULT BLACK MALES AND FEMALES, NORMAL RBC,HGB, AND HCT IS 5% LESS SOURCE FOR DATA: [email or web address] 1800 OPERATION MANUAL( AUTOMATED BLOOD COUNTS AND DIFF.) APPENDIX B-3 CHRONIC KIDNEY DISEASE STAGING PER NKF: MALE GFR INTERPRETATION: 20-49 YRS: >60 mL/min Normal 50-59 YRS: >56 mL/min Normal 60-69 YRS: >49 mL/min Normal 70-79 YRS: >42 mL/min Normal 80 and above >35 mL/min Normal FEMALE GRF INTERPRETATION: 20-39 YRS: >60 mL/min Normal 40-49 YRS: >58 mL/min Normal 50-59 YRS: >51 mL/min Normal 60-69 YRS: >45 mL/min Normal 70-79 YRS: >39 mL/min Normal 80 and above >32 mL/min NormalCLASSIFICATION CHOLESTEROL FOR ADULTS CHILDREN/ADOLESCENTS* DESIRABLE: <200 MG/DL <170 MG/DL BORDER-LINE HIGH RISK: 200-239 MG/DL 170-199 MG/DL HIGH RISK: >240 MG/DL >200 MG/DL CLASS. FOR PRIMARY LDL CHOL PREVENTION: LDL CHOL-CHILD/ADOLESCENTS* DESIRABLE: <130 MG/DL <110 MG/DL BORDERLINE-HIGH RISK: 130- 159 MG/DL 110-129 MG/DL HIGH RISK: >160 MG/DL >130 MG/DL *CHILDREN AND ADOLESCENTS REPRESENTS INDIVIDUALA AGED 2-19 YEARS EXCLUSIVE. Chol 205 mg/dL 0-200 Above high normal [facility] ([facility] NORMAL RANGES Age WBC RBC HGB HCT MCV PLT Adult M 4.1-10.9 4.20-6.30 12.0-18.0 37.0-51.0 80-97 140-440 Adult F 4.1-10.9 4.04-5.48 12.0-18.0 37.0-51.0 80-97 140-440 0 -1 Yr 5.0-20.0 3.9-5.9 15-18 MV: 44 MV: 91 MV: 277 2-9 Yr. 6.0-17.0 3.8-5.4 11-13 MV: 37 MV: 78 MV: 300 10 Yrs. 5.0-13.0 3.8-5.4 12-15 MV: 39 MV: 80 MV: 250 NOTE: * FOR ADULT BLACK MALES AND FEMALES, NORMAL WBC IS 2.9-7.7 K/ML * FOR ADULT BLACK MALES AND FEMALES, NORMAL RBC,HGB, AND HCT IS 5% LESS SOURCE FOR DATA: [email or web address] 1800 OPERATION MANUAL( AUTOMATED BLOOD COUNTS AND DIFF.) APPENDIX B-3 CHRONIC KIDNEY DISEASE STAGING PER NKF: MALE GFR INTERPRETATION: 20-49 YRS: >60 mL/min Normal 50-59 YRS: >56 mL/min Normal 60-69 YRS: >49 mL/min Normal 70-79 YRS: >42 mL/min Normal 80 and above >35 mL/min Normal FEMALE GRF INTERPRETATION: 20-39 YRS: >60 mL/min Normal 40-49 YRS: >58 mL/min Normal 50-59 YRS: >51 mL/min Normal 60-69 YRS: >45 mL/min Normal 70-79 YRS: >39 mL/min Normal 80 and above >32 mL/min NormalCLASSIFICATION CHOLESTEROL FOR ADULTS CHILDREN/ADOLESCENTS* DESIRABLE: <200 MG/DL <170 MG/DL BORDER-LINE HIGH RISK: 200-239 MG/DL 170-199 MG/DL HIGH RISK: >240 MG/DL >200 MG/DL CLASS. FOR PRIMARY LDL CHOL PREVENTION: LDL CHOL-CHILD/ADOLESCENTS* DESIRABLE: <130 MG/DL <110 MG/DL BORDERLINE-HIGH RISK: 130- 159 MG/DL 110-129 MG/DL HIGH RISK: >160 MG/DL >130 MG/DL *CHILDREN AND ADOLESCENTS REPRESENTS INDIVIDUALA AGED 2-19 YEARS EXCLUSIVE. LDL_C 124 Calc 75-129 [facility] NORMAL RANGES Age WBC RBC HGB HCT MCV PLT Adult M 4.1-10.9 4.20-6.30 12.0-18.0 37.0-51.0 80-97 140-440 Adult F 4.1-10.9 4.04-5.48 12.0-18.0 37.0-51.0 80-97 140-440 0 -1 Yr 5.0-20.0 3.9-5.9 15-18 MV: 44 MV: 91 MV: 277 2-9 Yr. 6.0-17.0 3.8-5.4 11-13 MV: 37 MV: 78 MV: 300 10 Yrs. 5.0-13.0 3.8-5.4 12-15 MV: 39 MV: 80 MV: 250 NOTE: * FOR ADULT BLACK MALES AND FEMALES, NORMAL WBC IS 2.9-7.7 K/ML * FOR ADULT BLACK MALES AND FEMALES, NORMAL RBC,HGB, AND HCT IS 5% LESS SOURCE FOR DATA: [email or web address] 1800 OPERATION MANUAL( AUTOMATED BLOOD COUNTS AND DIFF.) APPENDIX B-3 CHRONIC KIDNEY DISEASE STAGING PER NKF: MALE GFR INTERPRETATION: 20-49 YRS: >60 mL/min Normal 50-59 YRS: >56 mL/min Normal 60-69 YRS: >49 mL/min Normal 70-79 YRS: >42 mL/min Normal 80 and above >35 mL/min Normal FEMALE GRF INTERPRETATION: 20-39 YRS: >60 mL/min Normal 40-49 YRS: >58 mL/min Normal 50-59 YRS: >51 mL/min Normal 60-69 YRS: >45 mL/min Normal 70-79 YRS: >39 mL/min Normal 80 and above >32 mL/min NormalCLASSIFICATION CHOLESTEROL FOR ADULTS CHILDREN/ADOLESCENTS* DESIRABLE: <200 MG/DL <170 MG/DL BORDER-LINE HIGH RISK: 200-239 MG/DL 170-199 MG/DL HIGH RISK: >240 MG/DL >200 MG/DL CLASS. FOR PRIMARY LDL CHOL PREVENTION: LDL CHOL-CHILD/ADOLESCENTS* DESIRABLE: <130 MG/DL <110 MG/DL BORDERLINE-HIGH RISK: 130- 159 MG/DL 110-129 MG/DL HIGH RISK: >160 MG/DL >130 MG/DL *CHILDREN AND ADOLESCENTS REPRESENTS INDIVIDUALA AGED 2-19 YEARS EXCLUSIVE. Cho/HDL Ratio 4.6 CALC [facility] ([facility] NORMAL RANGES Age WBC RBC HGB HCT MCV PLT Adult M 4.1-10.9 4.20-6.30 12.0-18.0 37.0-51.0 80-97 140-440 Adult F 4.1-10.9 4.04-5.48 12.0-18.0 37.0-51.0 80-97 140-440 0 -1 Yr 5.0-20.0 3.9-5.9 15-18 MV: 44 MV: 91 MV: 277 2-9 Yr. 6.0-17.0 3.8-5.4 11-13 MV: 37 MV: 78 MV: 300 10 Yrs. 5.0-13.0 3.8-5.4 12-15 MV: 39 MV: 80 MV: 250 NOTE: * FOR ADULT BLACK MALES AND FEMALES, NORMAL WBC IS 2.9-7.7 K/ML * FOR ADULT BLACK MALES AND FEMALES, NORMAL RBC,HGB, AND HCT IS 5% LESS SOURCE FOR DATA: [email or web address] 1800 OPERATION MANUAL( AUTOMATED BLOOD COUNTS AND DIFF.) APPENDIX B-3 CHRONIC KIDNEY DISEASE STAGING PER NKF: MALE GFR INTERPRETATION: 20-49 YRS: >60 mL/min Normal 50-59 YRS: >56 mL/min Normal 60-69 YRS: >49 mL/min Normal 70-79 YRS: >42 mL/min Normal 80 and above >35 mL/min Normal FEMALE GRF INTERPRETATION: 20-39 YRS: >60 mL/min Normal 40-49 YRS: >58 mL/min Normal 50-59 YRS: >51 mL/min Normal 60-69 YRS: >45 mL/min Normal 70-79 YRS: >39 mL/min Normal 80 and above >32 mL/min NormalCLASSIFICATION CHOLESTEROL FOR ADULTS CHILDREN/ADOLESCENTS* DESIRABLE: <200 MG/DL <170 MG/DL BORDER-LINE HIGH RISK: 200-239 MG/DL 170-199 MG/DL HIGH RISK: >240 MG/DL >200 MG/DL CLASS. FOR PRIMARY LDL CHOL PREVENTION: LDL CHOL-CHILD/ADOLESCENTS* DESIRABLE: <130 MG/DL <110 MG/DL BORDERLINE-HIGH RISK: 130- 159 MG/DL 110-129 MG/DL HIGH RISK: >160 MG/DL >130 MG/DL *CHILDREN AND ADOLESCENTS REPRESENTS INDIVIDUALA AGED 2-19 YEARS EXCLUSIVE. ID Date Data Source [id number] 07/06/2020 09:03:00 AM EST [facility] ([facility] Name Value Range Interpretation Code Description Data Sonja rce(s) Supporting Document(s) Glu 114 mg/dL 70-110 Above high normal [facility] ([facility] NORMAL RANGES Age WBC RBC HGB HCT MCV PLT Adult M 4.1-10.9 4.20-6.30 12.0-18.0 37.0-51.0 80-97 140-440 Adult F 4.1-10.9 4.04-5.48 12.0-18.0 37.0-51.0 80-97 140-440 0 -1 Yr 5.0-20.0 3.9-5.9 15-18 MV: 44 MV: 91 MV: 277 2-9 Yr. 6.0-17.0 3.8-5.4 11-13 MV: 37 MV: 78 MV: 300 10 Yrs. 5.0-13.0 3.8-5.4 12-15 MV: 39 MV: 80 MV: 250 NOTE: * FOR ADULT BLACK MALES AND FEMALES, NORMAL WBC IS 2.9-7.7 K/ML * FOR ADULT BLACK MALES AND FEMALES, NORMAL RBC,HGB, AND HCT IS 5% LESS SOURCE FOR DATA: [email or web address] 1800 OPERATION MANUAL( AUTOMATED BLOOD COUNTS AND DIFF.) APPENDIX B-3 CHRONIC KIDNEY DISEASE STAGING PER NKF: MALE GFR INTERPRETATION: 20-49 YRS: >60 mL/min Normal 50-59 YRS: >56 mL/min Normal 60-69 YRS: >49 mL/min Normal 70-79 YRS: >42 mL/min Normal 80 and above >35 mL/min Normal FEMALE GRF INTERPRETATION: 20-39 YRS: >60 mL/min Normal 40-49 YRS: >58 mL/min Normal 50-59 YRS: >51 mL/min Normal 60-69 YRS: >45 mL/min Normal 70-79 YRS: >39 mL/min Normal 80 and above >32 mL/min NormalCLASSIFICATION CHOLESTEROL FOR ADULTS CHILDREN/ADOLESCENTS* DESIRABLE: <200 MG/DL <170 MG/DL BORDER-LINE HIGH RISK: 200-239 MG/DL 170-199 MG/DL HIGH RISK: >240 MG/DL >200 MG/DL CLASS. FOR PRIMARY LDL CHOL PREVENTION: LDL CHOL-CHILD/ADOLESCENTS* DESIRABLE: <130 MG/DL <110 MG/DL BORDERLINE-HIGH RISK: 130- 159 MG/DL 110-129 MG/DL HIGH RISK: >160 MG/DL >130 MG/DL *CHILDREN AND ADOLESCENTS REPRESENTS INDIVIDUALA AGED 2-19 YEARS EXCLUSIVE. BUN 22 mg/dL 8-23 [facility] NORMAL RANGES Age WBC RBC HGB HCT MCV PLT Adult M 4.1-10.9 4.20-6.30 12.0-18.0 37.0-51.0 80-97 140-440 Adult F 4.1-10.9 4.04-5.48 12.0-18.0 37.0-51.0 80-97 140-440 0 -1 Yr 5.0-20.0 3.9-5.9 15-18 MV: 44 MV: 91 MV: 277 2-9 Yr. 6.0-17.0 3.8-5.4 11-13 MV: 37 MV: 78 MV: 300 10 Yrs. 5.0-13.0 3.8-5.4 12-15 MV: 39 MV: 80 MV: 250 NOTE: * FOR ADULT BLACK MALES AND FEMALES, NORMAL WBC IS 2.9-7.7 K/ML * FOR ADULT BLACK MALES AND FEMALES, NORMAL RBC,HGB, AND HCT IS 5% LESS SOURCE FOR DATA: [email or web address] 1800 OPERATION MANUAL( AUTOMATED BLOOD COUNTS AND DIFF.) APPENDIX B-3 CHRONIC KIDNEY DISEASE STAGING PER NKF: MALE GFR INTERPRETATION: 20-49 YRS: >60 mL/min Normal 50-59 YRS: >56 mL/min Normal 60-69 YRS: >49 mL/min Normal 70-79 YRS: >42 mL/min Normal 80 and above >35 mL/min Normal FEMALE GRF INTERPRETATION: 20-39 YRS: >60 mL/min Normal 40-49 YRS: >58 mL/min Normal 50-59 YRS: >51 mL/min Normal 60-69 YRS: >45 mL/min Normal 70-79 YRS: >39 mL/min Normal 80 and above >32 mL/min NormalCLASSIFICATION CHOLESTEROL FOR ADULTS CHILDREN/ADOLESCENTS* DESIRABLE: <200 MG/DL <170 MG/DL BORDER-LINE HIGH RISK: 200-239 MG/DL 170-199 MG/DL HIGH RISK: >240 MG/DL >200 MG/DL CLASS. FOR PRIMARY LDL CHOL PREVENTION: LDL CHOL-CHILD/ADOLESCENTS* DESIRABLE: <130 MG/DL <110 MG/DL BORDERLINE-HIGH RISK: 130- 159 MG/DL 110-129 MG/DL HIGH RISK: >160 MG/DL >130 MG/DL *CHILDREN AND ADOLESCENTS REPRESENTS INDIVIDUALA AGED 2-19 YEARS EXCLUSIVE. Creat 0.7 mg/dL 0.5-1.0 [facility] NORMAL RANGES Age WBC RBC HGB HCT MCV PLT Adult M 4.1-10.9 4.20-6.30 12.0-18.0 37.0-51.0 80-97 140-440 Adult F 4.1-10.9 4.04-5.48 12.0-18.0 37.0-51.0 80-97 140-440 0 -1 Yr 5.0-20.0 3.9-5.9 15-18 MV: 44 MV: 91 MV: 277 2-9 Yr. 6.0-17.0 3.8-5.4 11-13 MV: 37 MV: 78 MV: 300 10 Yrs. 5.0-13.0 3.8-5.4 12-15 MV: 39 MV: 80 MV: 250 NOTE: * FOR ADULT BLACK MALES AND FEMALES, NORMAL WBC IS 2.9-7.7 K/ML * FOR ADULT BLACK MALES AND FEMALES, NORMAL RBC,HGB, AND HCT IS 5% LESS SOURCE FOR DATA: [email or web address] 1800 OPERATION MANUAL( AUTOMATED BLOOD COUNTS AND DIFF.) APPENDIX B-3 CHRONIC KIDNEY DISEASE STAGING PER NKF: MALE GFR INTERPRETATION: 20-49 YRS: >60 mL/min Normal 50-59 YRS: >56 mL/min Normal 60-69 YRS: >49 mL/min Normal 70-79 YRS: >42 mL/min Normal 80 and above >35 mL/min Normal FEMALE GRF INTERPRETATION: 20-39 YRS: >60 mL/min Normal 40-49 YRS: >58 mL/min Normal 50-59 YRS: >51 mL/min Normal 60-69 YRS: >45 mL/min Normal 70-79 YRS: >39 mL/min Normal 80 and above >32 mL/min NormalCLASSIFICATION CHOLESTEROL FOR ADULTS CHILDREN/ADOLESCENTS* DESIRABLE: <200 MG/DL <170 MG/DL BORDER-LINE HIGH RISK: 200-239 MG/DL 170-199 MG/DL HIGH RISK: >240 MG/DL >200 MG/DL CLASS. FOR PRIMARY LDL CHOL PREVENTION: LDL CHOL-CHILD/ADOLESCENTS* DESIRABLE: <130 MG/DL <110 MG/DL BORDERLINE-HIGH RISK: 130- 159 MG/DL 110-129 MG/DL HIGH RISK: >160 MG/DL >130 MG/DL *CHILDREN AND ADOLESCENTS REPRESENTS INDIVIDUALA AGED 2-19 YEARS EXCLUSIVE. BUN/Creatinine Ratio 31.1 CALC [facility] ([facility] NORMAL RANGES Age WBC RBC HGB HCT MCV PLT Adult M 4.1-10.9 4.20-6.30 12.0-18.0 37.0-51.0 80-97 140-440 Adult F 4.1-10.9 4.04-5.48 12.0-18.0 37.0-51.0 80-97 140-440 0 -1 Yr 5.0-20.0 3.9-5.9 15-18 MV: 44 MV: 91 MV: 277 2-9 Yr. 6.0-17.0 3.8-5.4 11-13 MV: 37 MV: 78 MV: 300 10 Yrs. 5.0-13.0 3.8-5.4 12-15 MV: 39 MV: 80 MV: 250 NOTE: * FOR ADULT BLACK MALES AND FEMALES, NORMAL WBC IS 2.9-7.7 K/ML * FOR ADULT BLACK MALES AND FEMALES, NORMAL RBC,HGB, AND HCT IS 5% LESS SOURCE FOR DATA: [email or web address] 1800 OPERATION MANUAL( AUTOMATED BLOOD COUNTS AND DIFF.) APPENDIX B-3 CHRONIC KIDNEY DISEASE STAGING PER NKF: MALE GFR INTERPRETATION: 20-49 YRS: >60 mL/min Normal 50-59 YRS: >56 mL/min Normal 60-69 YRS: >49 mL/min Normal 70-79 YRS: >42 mL/min Normal 80 and above >35 mL/min Normal FEMALE GRF INTERPRETATION: 20-39 YRS: >60 mL/min Normal 40-49 YRS: >58 mL/min Normal 50-59 YRS: >51 mL/min Normal 60-69 YRS: >45 mL/min Normal 70-79 YRS: >39 mL/min Normal 80 and above >32 mL/min NormalCLASSIFICATION CHOLESTEROL FOR ADULTS CHILDREN/ADOLESCENTS* DESIRABLE: <200 MG/DL <170 MG/DL BORDER-LINE HIGH RISK: 200-239 MG/DL 170-199 MG/DL HIGH RISK: >240 MG/DL >200 MG/DL CLASS. FOR PRIMARY LDL CHOL PREVENTION: LDL CHOL-CHILD/ADOLESCENTS* DESIRABLE: <130 MG/DL <110 MG/DL BORDERLINE-HIGH RISK: 130- 159 MG/DL 110-129 MG/DL HIGH RISK: >160 MG/DL >130 MG/DL *CHILDREN AND ADOLESCENTS REPRESENTS INDIVIDUALA AGED 2-19 YEARS EXCLUSIVE. Na 139 mmol/L 136-145 [facility] NORMAL RANGES Age WBC RBC HGB HCT MCV PLT Adult M 4.1-10.9 4.20-6.30 12.0-18.0 37.0-51.0 80-97 140-440 Adult F 4.1-10.9 4.04-5.48 12.0-18.0 37.0-51.0 80-97 140-440 0 -1 Yr 5.0-20.0 3.9-5.9 15-18 MV: 44 MV: 91 MV: 277 2-9 Yr. 6.0-17.0 3.8-5.4 11-13 MV: 37 MV: 78 MV: 300 10 Yrs. 5.0-13.0 3.8-5.4 12-15 MV: 39 MV: 80 MV: 250 NOTE: * FOR ADULT BLACK MALES AND FEMALES, NORMAL WBC IS 2.9-7.7 K/ML * FOR ADULT BLACK MALES AND FEMALES, NORMAL RBC,HGB, AND HCT IS 5% LESS SOURCE FOR DATA: [email or web address] 1800 OPERATION MANUAL( AUTOMATED BLOOD COUNTS AND DIFF.) APPENDIX B-3 CHRONIC KIDNEY DISEASE STAGING PER NKF: MALE GFR INTERPRETATION: 20-49 YRS: >60 mL/min Normal 50-59 YRS: >56 mL/min Normal 60-69 YRS: >49 mL/min Normal 70-79 YRS: >42 mL/min Normal 80 and above >35 mL/min Normal FEMALE GRF INTERPRETATION: 20-39 YRS: >60 mL/min Normal 40-49 YRS: >58 mL/min Normal 50-59 YRS: >51 mL/min Normal 60-69 YRS: >45 mL/min Normal 70-79 YRS: >39 mL/min Normal 80 and above >32 mL/min NormalCLASSIFICATION CHOLESTEROL FOR ADULTS CHILDREN/ADOLESCENTS* DESIRABLE: <200 MG/DL <170 MG/DL BORDER-LINE HIGH RISK: 200-239 MG/DL 170-199 MG/DL HIGH RISK: >240 MG/DL >200 MG/DL CLASS. FOR PRIMARY LDL CHOL PREVENTION: LDL CHOL-CHILD/ADOLESCENTS* DESIRABLE: <130 MG/DL <110 MG/DL BORDERLINE-HIGH RISK: 130- 159 MG/DL 110-129 MG/DL HIGH RISK: >160 MG/DL >130 MG/DL *CHILDREN AND ADOLESCENTS REPRESENTS INDIVIDUALA AGED 2-19 YEARS EXCLUSIVE. K 4.5 mmol/L 3.5-5.1 [facility] ([facility] NORMAL RANGES Age WBC RBC HGB HCT MCV PLT Adult M 4.1-10.9 4.20-6.30 12.0-18.0 37.0-51.0 80-97 140-440 Adult F 4.1-10.9 4.04-5.48 12.0-18.0 37.0-51.0 80-97 140-440 0 -1 Yr 5.0-20.0 3.9-5.9 15-18 MV: 44 MV: 91 MV: 277 2-9 Yr. 6.0-17.0 3.8-5.4 11-13 MV: 37 MV: 78 MV: 300 10 Yrs. 5.0-13.0 3.8-5.4 12-15 MV: 39 MV: 80 MV: 250 NOTE: * FOR ADULT BLACK MALES AND FEMALES, NORMAL WBC IS 2.9-7.7 K/ML * FOR ADULT BLACK MALES AND FEMALES, NORMAL RBC,HGB, AND HCT IS 5% LESS SOURCE FOR DATA: [email or web address] 1800 OPERATION MANUAL( AUTOMATED BLOOD COUNTS AND DIFF.) APPENDIX B-3 CHRONIC KIDNEY DISEASE STAGING PER NKF: MALE GFR INTERPRETATION: 20-49 YRS: >60 mL/min Normal 50-59 YRS: >56 mL/min Normal 60-69 YRS: >49 mL/min Normal 70-79 YRS: >42 mL/min Normal 80 and above >35 mL/min Normal FEMALE GRF INTERPRETATION: 20-39 YRS: >60 mL/min Normal 40-49 YRS: >58 mL/min Normal 50-59 YRS: >51 mL/min Normal 60-69 YRS: >45 mL/min Normal 70-79 YRS: >39 mL/min Normal 80 and above >32 mL/min NormalCLASSIFICATION CHOLESTEROL FOR ADULTS CHILDREN/ADOLESCENTS* DESIRABLE: <200 MG/DL <170 MG/DL BORDER-LINE HIGH RISK: 200-239 MG/DL 170-199 MG/DL HIGH RISK: >240 MG/DL >200 MG/DL CLASS. FOR PRIMARY LDL CHOL PREVENTION: LDL CHOL-CHILD/ADOLESCENTS* DESIRABLE: <130 MG/DL <110 MG/DL BORDERLINE-HIGH RISK: 130- 159 MG/DL 110-129 MG/DL HIGH RISK: >160 MG/DL >130 MG/DL *CHILDREN AND ADOLESCENTS REPRESENTS INDIVIDUALA AGED 2-19 YEARS EXCLUSIVE. Co2 23.2 mmol/L 22.0-29.0 [facility] NORMAL RANGES Age WBC RBC HGB HCT MCV PLT Adult M 4.1-10.9 4.20-6.30 12.0-18.0 37.0-51.0 80-97 140-440 Adult F 4.1-10.9 4.04-5.48 12.0-18.0 37.0-51.0 80-97 140-440 0 -1 Yr 5.0-20.0 3.9-5.9 15-18 MV: 44 MV: 91 MV: 277 2-9 Yr. 6.0-17.0 3.8-5.4 11-13 MV: 37 MV: 78 MV: 300 10 Yrs. 5.0-13.0 3.8-5.4 12-15 MV: 39 MV: 80 MV: 250 NOTE: * FOR ADULT BLACK MALES AND FEMALES, NORMAL WBC IS 2.9-7.7 K/ML * FOR ADULT BLACK MALES AND FEMALES, NORMAL RBC,HGB, AND HCT IS 5% LESS SOURCE FOR DATA: [email or web address] 1800 OPERATION MANUAL( AUTOMATED BLOOD COUNTS AND DIFF.) APPENDIX B-3 CHRONIC KIDNEY DISEASE STAGING PER NKF: MALE GFR INTERPRETATION: 20-49 YRS: >60 mL/min Normal 50-59 YRS: >56 mL/min Normal 60-69 YRS: >49 mL/min Normal 70-79 YRS: >42 mL/min Normal 80 and above >35 mL/min Normal FEMALE GRF INTERPRETATION: 20-39 YRS: >60 mL/min Normal 40-49 YRS: >58 mL/min Normal 50-59 YRS: >51 mL/min Normal 60-69 YRS: >45 mL/min Normal 70-79 YRS: >39 mL/min Normal 80 and above >32 mL/min NormalCLASSIFICATION CHOLESTEROL FOR ADULTS CHILDREN/ADOLESCENTS* DESIRABLE: <200 MG/DL <170 MG/DL BORDER-LINE HIGH RISK: 200-239 MG/DL 170-199 MG/DL HIGH RISK: >240 MG/DL >200 MG/DL CLASS. FOR PRIMARY LDL CHOL PREVENTION: LDL CHOL-CHILD/ADOLESCENTS* DESIRABLE: <130 MG/DL <110 MG/DL BORDERLINE-HIGH RISK: 130- 159 MG/DL 110-129 MG/DL HIGH RISK: >160 MG/DL >130 MG/DL *CHILDREN AND ADOLESCENTS REPRESENTS INDIVIDUALA AGED 2-19 YEARS EXCLUSIVE. CL 103.7 mmol/L 98.0-107.0 [facility] ([facility] NORMAL RANGES Age WBC RBC HGB HCT MCV PLT Adult M 4.1-10.9 4.20-6.30 12.0-18.0 37.0-51.0 80-97 140-440 Adult F 4.1-10.9 4.04-5.48 12.0-18.0 37.0-51.0 80-97 140-440 0 -1 Yr 5.0-20.0 3.9-5.9 15-18 MV: 44 MV: 91 MV: 277 2-9 Yr. 6.0-17.0 3.8-5.4 11-13 MV: 37 MV: 78 MV: 300 10 Yrs. 5.0-13.0 3.8-5.4 12-15 MV: 39 MV: 80 MV: 250 NOTE: * FOR ADULT BLACK MALES AND FEMALES, NORMAL WBC IS 2.9-7.7 K/ML * FOR ADULT BLACK MALES AND FEMALES, NORMAL RBC,HGB, AND HCT IS 5% LESS SOURCE FOR DATA: [email or web address] 1800 OPERATION MANUAL( AUTOMATED BLOOD COUNTS AND DIFF.) APPENDIX B-3 CHRONIC KIDNEY DISEASE STAGING PER NKF: MALE GFR INTERPRETATION: 20-49 YRS: >60 mL/min Normal 50-59 YRS: >56 mL/min Normal 60-69 YRS: >49 mL/min Normal 70-79 YRS: >42 mL/min Normal 80 and above >35 mL/min Normal FEMALE GRF INTERPRETATION: 20-39 YRS: >60 mL/min Normal 40-49 YRS: >58 mL/min Normal 50-59 YRS: >51 mL/min Normal 60-69 YRS: >45 mL/min Normal 70-79 YRS: >39 mL/min Normal 80 and above >32 mL/min NormalCLASSIFICATION CHOLESTEROL FOR ADULTS CHILDREN/ADOLESCENTS* DESIRABLE: <200 MG/DL <170 MG/DL BORDER-LINE HIGH RISK: 200-239 MG/DL 170-199 MG/DL HIGH RISK: >240 MG/DL >200 MG/DL CLASS. FOR PRIMARY LDL CHOL PREVENTION: LDL CHOL-CHILD/ADOLESCENTS* DESIRABLE: <130 MG/DL <110 MG/DL BORDERLINE-HIGH RISK: 130- 159 MG/DL 110-129 MG/DL HIGH RISK: >160 MG/DL >130 MG/DL *CHILDREN AND ADOLESCENTS REPRESENTS INDIVIDUALA AGED 2-19 YEARS EXCLUSIVE. TP 6.3 g/dL 6.6-8.7 Below low normal [facility] ( [facility] NORMAL RANGES Age WBC RBC HGB HCT MCV PLT Adult M 4.1-10.9 4.20-6.30 12.0-18.0 37.0-51.0 80-97 140-440 Adult F 4.1-10.9 4.04-5.48 12.0-18.0 37.0-51.0 80-97 140-440 0 -1 Yr 5.0-20.0 3.9-5.9 15-18 MV: 44 MV: 91 MV: 277 2-9 Yr. 6.0-17.0 3.8-5.4 11-13 MV: 37 MV: 78 MV: 300 10 Yrs. 5.0-13.0 3.8-5.4 12-15 MV: 39 MV: 80 MV: 250 NOTE: * FOR ADULT BLACK MALES AND FEMALES, NORMAL WBC IS 2.9-7.7 K/ML * FOR ADULT BLACK MALES AND FEMALES, NORMAL RBC,HGB, AND HCT IS 5% LESS SOURCE FOR DATA: [email or web address] 1800 OPERATION MANUAL( AUTOMATED BLOOD COUNTS AND DIFF.) APPENDIX B-3 CHRONIC KIDNEY DISEASE STAGING PER NKF: MALE GFR INTERPRETATION: 20-49 YRS: >60 mL/min Normal 50-59 YRS: >56 mL/min Normal 60-69 YRS: >49 mL/min Normal 70-79 YRS: >42 mL/min Normal 80 and above >35 mL/min Normal FEMALE GRF INTERPRETATION: 20-39 YRS: >60 mL/min Normal 40-49 YRS: >58 mL/min Normal 50-59 YRS: >51 mL/min Normal 60-69 YRS: >45 mL/min Normal 70-79 YRS: >39 mL/min Normal 80 and above >32 mL/min NormalCLASSIFICATION CHOLESTEROL FOR ADULTS CHILDREN/ADOLESCENTS* DESIRABLE: <200 MG/DL <170 MG/DL BORDER-LINE HIGH RISK: 200-239 MG/DL 170-199 MG/DL HIGH RISK: >240 MG/DL >200 MG/DL CLASS. FOR PRIMARY LDL CHOL PREVENTION: LDL CHOL-CHILD/ADOLESCENTS* DESIRABLE: <130 MG/DL <110 MG/DL BORDERLINE-HIGH RISK: 130- 159 MG/DL 110-129 MG/DL HIGH RISK: >160 MG/DL >130 MG/DL *CHILDREN AND ADOLESCENTS REPRESENTS INDIVIDUALA AGED 2-19 YEARS EXCLUSIVE. CA 9.4 mg/dL 8.6-10.2 [facility] ([facility] NORMAL RANGES Age WBC RBC HGB HCT MCV PLT Adult M 4.1-10.9 4.20-6.30 12.0-18.0 37.0-51.0 80-97 140-440 Adult F 4.1-10.9 4.04-5.48 12.0-18.0 37.0-51.0 80-97 140-440 0 -1 Yr 5.0-20.0 3.9-5.9 15-18 MV: 44 MV: 91 MV: 277 2-9 Yr. 6.0-17.0 3.8-5.4 11-13 MV: 37 MV: 78 MV: 300 10 Yrs. 5.0-13.0 3.8-5.4 12-15 MV: 39 MV: 80 MV: 250 NOTE: * FOR ADULT BLACK MALES AND FEMALES, NORMAL WBC IS 2.9-7.7 K/ML * FOR ADULT BLACK MALES AND FEMALES, NORMAL RBC,HGB, AND HCT IS 5% LESS SOURCE FOR DATA: [employer] 1800 OPERATION MANUAL( AUTOMATED BLOOD COUNTS AND DIFF.) APPENDIX B-3 CHRONIC KIDNEY DISEASE STAGING PER NKF: MALE GFR INTERPRETATION: 20-49 YRS: >60 mL/min Normal 50-59 YRS: >56 mL/min Normal 60-69 YRS: >49 mL/min Normal 70-79 YRS: >42 mL/min Normal 80 and above >35 mL/min Normal FEMALE GRF INTERPRETATION: 20-39 YRS: >60 mL/min Normal 40-49 YRS: >58 mL/min Normal 50-59 YRS: >51 mL/min Normal 60-69 YRS: >45 mL/min Normal 70-79 YRS: >39 mL/min Normal 80 and above >32 mL/min NormalCLASSIFICATION CHOLESTEROL FOR ADULTS CHILDREN/ADOLESCENTS* DESIRABLE: <200 MG/DL <170 MG/DL BORDER-LINE HIGH RISK: 200-239 MG/DL 170-199 MG/DL HIGH RISK: >240 MG/DL >200 MG/DL CLASS. FOR PRIMARY LDL CHOL PREVENTION: LDL CHOL-CHILD/ADOLESCENTS* DESIRABLE: <130 MG/DL <110 MG/DL BORDERLINE-HIGH RISK: 130- 159 MG/DL 110-129 MG/DL HIGH RISK: >160 MG/DL >130 MG/DL *CHILDREN AND ADOLESCENTS REPRESENTS INDIVIDUALA AGED 2-19 YEARS EXCLUSIVE. Globulin 2.0 CALC [facility] ([facility] NORMAL RANGES Age WBC RBC HGB HCT MCV PLT Adult M 4.1-10.9 4.20-6.30 12.0-18.0 37.0-51.0 80-97 140-440 Adult F 4.1-10.9 4.04-5.48 12.0-18.0 37.0-51.0 80-97 140-440 0 -1 Yr 5.0-20.0 3.9-5.9 15-18 MV: 44 MV: 91 MV: 277 2-9 Yr. 6.0-17.0 3.8-5.4 11-13 MV: 37 MV: 78 MV: 300 10 Yrs. 5.0-13.0 3.8-5.4 12-15 MV: 39 MV: 80 MV: 250 NOTE: * FOR ADULT BLACK MALES AND FEMALES, NORMAL WBC IS 2.9-7.7 K/ML * FOR ADULT BLACK MALES AND FEMALES, NORMAL RBC,HGB, AND HCT IS 5% LESS SOURCE FOR DATA: [email or web address] 1800 OPERATION MANUAL( AUTOMATED BLOOD COUNTS AND DIFF.) APPENDIX B-3 CHRONIC KIDNEY DISEASE STAGING PER NKF: MALE GFR INTERPRETATION: 20-49 YRS: >60 mL/min Normal 50-59 YRS: >56 mL/min Normal 60-69 YRS: >49 mL/min Normal 70-79 YRS: >42 mL/min Normal 80 and above >35 mL/min Normal FEMALE GRF INTERPRETATION: 20-39 YRS: >60 mL/min Normal 40-49 YRS: >58 mL/min Normal 50-59 YRS: >51 mL/min Normal 60-69 YRS: >45 mL/min Normal 70-79 YRS: >39 mL/min Normal 80 and above >32 mL/min NormalCLASSIFICATION CHOLESTEROL FOR ADULTS CHILDREN/ADOLESCENTS* DESIRABLE: <200 MG/DL <170 MG/DL BORDER-LINE HIGH RISK: 200-239 MG/DL 170-199 MG/DL HIGH RISK: >240 MG/DL >200 MG/DL CLASS. FOR PRIMARY LDL CHOL PREVENTION: LDL CHOL-CHILD/ADOLESCENTS* DESIRABLE: <130 MG/DL <110 MG/DL BORDERLINE-HIGH RISK: 130- 159 MG/DL 110-129 MG/DL HIGH RISK: >160 MG/DL >130 MG/DL *CHILDREN AND ADOLESCENTS REPRESENTS INDIVIDUALA AGED 2-19 YEARS EXCLUSIVE. A/G Ratio 2.1 CALC [facility] ([facility] NORMAL RANGES Age WBC RBC HGB HCT MCV PLT Adult M 4.1-10.9 4.20-6.30 12.0-18.0 37.0-51.0 80-97 140-440 Adult F 4.1-10.9 4.04-5.48 12.0-18.0 37.0-51.0 80-97 140-440 0 -1 Yr 5.0-20.0 3.9-5.9 15-18 MV: 44 MV: 91 MV: 277 2-9 Yr. 6.0-17.0 3.8-5.4 11-13 MV: 37 MV: 78 MV: 300 10 Yrs. 5.0-13.0 3.8-5.4 12-15 MV: 39 MV: 80 MV: 250 NOTE: * FOR ADULT BLACK MALES AND FEMALES, NORMAL WBC IS 2.9-7.7 K/ML * FOR ADULT BLACK MALES AND FEMALES, NORMAL RBC,HGB, AND HCT IS 5% LESS SOURCE FOR DATA: [email or web address] 1800 OPERATION MANUAL( AUTOMATED BLOOD COUNTS AND DIFF.) APPENDIX B-3 CHRONIC KIDNEY DISEASE STAGING PER NKF: MALE GFR INTERPRETATION: 20-49 YRS: >60 mL/min Normal 50-59 YRS: >56 mL/min Normal 60-69 YRS: >49 mL/min Normal 70-79 YRS: >42 mL/min Normal 80 and above >35 mL/min Normal FEMALE GRF INTERPRETATION: 20-39 YRS: >60 mL/min Normal 40-49 YRS: >58 mL/min Normal 50-59 YRS: >51 mL/min Normal 60-69 YRS: >45 mL/min Normal 70-79 YRS: >39 mL/min Normal 80 and above >32 mL/min NormalCLASSIFICATION CHOLESTEROL FOR ADULTS CHILDREN/ADOLESCENTS* DESIRABLE: <200 MG/DL <170 MG/DL BORDER-LINE HIGH RISK: 200-239 MG/DL 170-199 MG/DL HIGH RISK: >240 MG/DL >200 MG/DL CLASS. FOR PRIMARY LDL CHOL PREVENTION: LDL CHOL-CHILD/ADOLESCENTS* DESIRABLE: <130 MG/DL <110 MG/DL BORDERLINE-HIGH RISK: 130- 159 MG/DL 110-129 MG/DL HIGH RISK: >160 MG/DL >130 MG/DL *CHILDREN AND ADOLESCENTS REPRESENTS INDIVIDUALA AGED 2-19 YEARS EXCLUSIVE. Alb 4.3 g/dL 3.4-4.8 [facility] NORMAL RANGES Age WBC RBC HGB HCT MCV PLT Adult M 4.1-10.9 4.20-6.30 12.0-18.0 37.0-51.0 80-97 140-440 Adult F 4.1-10.9 4.04-5.48 12.0-18.0 37.0-51.0 80-97 140-440 0 -1 Yr 5.0-20.0 3.9-5.9 15-18 MV: 44 MV: 91 MV: 277 2-9 Yr. 6.0-17.0 3.8-5.4 11-13 MV: 37 MV: 78 MV: 300 10 Yrs. 5.0-13.0 3.8-5.4 12-15 MV: 39 MV: 80 MV: 250 NOTE: * FOR ADULT BLACK MALES AND FEMALES, NORMAL WBC IS 2.9-7.7 K/ML * FOR ADULT BLACK MALES AND FEMALES, NORMAL RBC,HGB, AND HCT IS 5% LESS SOURCE FOR DATA: [employer] 1800 OPERATION MANUAL( AUTOMATED BLOOD COUNTS AND DIFF.) APPENDIX B-3 CHRONIC KIDNEY DISEASE STAGING PER NKF: MALE GFR INTERPRETATION: 20-49 YRS: >60 mL/min Normal 50-59 YRS: >56 mL/min Normal 60-69 YRS: >49 mL/min Normal 70-79 YRS: >42 mL/min Normal 80 and above >35 mL/min Normal FEMALE GRF INTERPRETATION: 20-39 YRS: >60 mL/min Normal 40-49 YRS: >58 mL/min Normal 50-59 YRS: >51 mL/min Normal 60-69 YRS: >45 mL/min Normal 70-79 YRS: >39 mL/min Normal 80 and above >32 mL/min NormalCLASSIFICATION CHOLESTEROL FOR ADULTS CHILDREN/ADOLESCENTS* DESIRABLE: <200 MG/DL <170 MG/DL BORDER-LINE HIGH RISK: 200-239 MG/DL 170-199 MG/DL HIGH RISK: >240 MG/DL >200 MG/DL CLASS. FOR PRIMARY LDL CHOL PREVENTION: LDL CHOL-CHILD/ADOLESCENTS* DESIRABLE: <130 MG/DL <110 MG/DL BORDERLINE-HIGH RISK: 130- 159 MG/DL 110-129 MG/DL HIGH RISK: >160 MG/DL >130 MG/DL *CHILDREN AND ADOLESCENTS REPRESENTS INDIVIDUALA AGED 2-19 YEARS EXCLUSIVE. Alt (SGPT) 72 U/L 0-41 Above high normal [facility] ([facility] NORMAL RANGES Age WBC RBC HGB HCT MCV PLT Adult M 4.1-10.9 4.20-6.30 12.0-18.0 37.0-51.0 80-97 140-440 Adult F 4.1-10.9 4.04-5.48 12.0-18.0 37.0-51.0 80-97 140-440 0 -1 Yr 5.0-20.0 3.9-5.9 15-18 MV: 44 MV: 91 MV: 277 2-9 Yr. 6.0-17.0 3.8-5.4 11-13 MV: 37 MV: 78 MV: 300 10 Yrs. 5.0-13.0 3.8-5.4 12-15 MV: 39 MV: 80 MV: 250 NOTE: * FOR ADULT BLACK MALES AND FEMALES, NORMAL WBC IS 2.9-7.7 K/ML * FOR ADULT BLACK MALES AND FEMALES, NORMAL RBC,HGB, AND HCT IS 5% LESS SOURCE FOR DATA: [email or web address] 1800 OPERATION MANUAL( AUTOMATED BLOOD COUNTS AND DIFF.) APPENDIX B-3 CHRONIC KIDNEY DISEASE STAGING PER NKF: MALE GFR INTERPRETATION: 20-49 YRS: >60 mL/min Normal 50-59 YRS: >56 mL/min Normal 60-69 YRS: >49 mL/min Normal 70-79 YRS: >42 mL/min Normal 80 and above >35 mL/min Normal FEMALE GRF INTERPRETATION: 20-39 YRS: >60 mL/min Normal 40-49 YRS: >58 mL/min Normal 50-59 YRS: >51 mL/min Normal 60-69 YRS: >45 mL/min Normal 70-79 YRS: >39 mL/min Normal 80 and above >32 mL/min NormalCLASSIFICATION CHOLESTEROL FOR ADULTS CHILDREN/ADOLESCENTS* DESIRABLE: <200 MG/DL <170 MG/DL BORDER-LINE HIGH RISK: 200-239 MG/DL 170-199 MG/DL HIGH RISK: >240 MG/DL >200 MG/DL CLASS. FOR PRIMARY LDL CHOL PREVENTION: LDL CHOL-CHILD/ADOLESCENTS* DESIRABLE: <130 MG/DL <110 MG/DL BORDERLINE-HIGH RISK: 130- 159 MG/DL 110-129 MG/DL HIGH RISK: >160 MG/DL >130 MG/DL *CHILDREN AND ADOLESCENTS REPRESENTS INDIVIDUALA AGED 2-19 YEARS EXCLUSIVE. Alp 79.1 U/L 35-129 [facility] ([facility] NORMAL RANGES Age WBC RBC HGB HCT MCV PLT Adult M 4.1-10.9 4.20-6.30 12.0-18.0 37.0-51.0 80-97 140-440 Adult F 4.1-10.9 4.04-5.48 12.0-18.0 37.0-51.0 80-97 140-440 0 -1 Yr 5.0-20.0 3.9-5.9 15-18 MV: 44 MV: 91 MV: 277 2-9 Yr. 6.0-17.0 3.8-5.4 11-13 MV: 37 MV: 78 MV: 300 10 Yrs. 5.0-13.0 3.8-5.4 12-15 MV: 39 MV: 80 MV: 250 NOTE: * FOR ADULT BLACK MALES AND FEMALES, NORMAL WBC IS 2.9-7.7 K/ML * FOR ADULT BLACK MALES AND FEMALES, NORMAL RBC,HGB, AND HCT IS 5% LESS SOURCE FOR DATA: [email or web address] 1800 OPERATION MANUAL( AUTOMATED BLOOD COUNTS AND DIFF.) APPENDIX B-3 CHRONIC KIDNEY DISEASE STAGING PER NKF: MALE GFR INTERPRETATION: 20-49 YRS: >60 mL/min Normal 50-59 YRS: >56 mL/min Normal 60-69 YRS: >49 mL/min Normal 70-79 YRS: >42 mL/min Normal 80 and above >35 mL/min Normal FEMALE GRF INTERPRETATION: 20-39 YRS: >60 mL/min Normal 40-49 YRS: >58 mL/min Normal 50-59 YRS: >51 mL/min Normal 60-69 YRS: >45 mL/min Normal 70-79 YRS: >39 mL/min Normal 80 and above >32 mL/min NormalCLASSIFICATION CHOLESTEROL FOR ADULTS CHILDREN/ADOLESCENTS* DESIRABLE: <200 MG/DL <170 MG/DL BORDER-LINE HIGH RISK: 200-239 MG/DL 170-199 MG/DL HIGH RISK: >240 MG/DL >200 MG/DL CLASS. FOR PRIMARY LDL CHOL PREVENTION: LDL CHOL-CHILD/ADOLESCENTS* DESIRABLE: <130 MG/DL <110 MG/DL BORDERLINE-HIGH RISK: 130- 159 MG/DL 110-129 MG/DL HIGH RISK: >160 MG/DL >130 MG/DL *CHILDREN AND ADOLESCENTS REPRESENTS INDIVIDUALA AGED 2-19 YEARS EXCLUSIVE. Ast (Sgot) 31 U/L 0-40 [facility] NORMAL RANGES Age WBC RBC HGB HCT MCV PLT Adult M 4.1-10.9 4.20-6.30 12.0-18.0 37.0-51.0 80-97 140-440 Adult F 4.1-10.9 4.04-5.48 12.0-18.0 37.0-51.0 80-97 140-440 0 -1 Yr 5.0-20.0 3.9-5.9 15-18 MV: 44 MV: 91 MV: 277 2-9 Yr. 6.0-17.0 3.8-5.4 11-13 MV: 37 MV: 78 MV: 300 10 Yrs. 5.0-13.0 3.8-5.4 12-15 MV: 39 MV: 80 MV: 250 NOTE: * FOR ADULT BLACK MALES AND FEMALES, NORMAL WBC IS 2.9-7.7 K/ML * FOR ADULT BLACK MALES AND FEMALES, NORMAL RBC,HGB, AND HCT IS 5% LESS SOURCE FOR DATA: [email or web address] 1800 OPERATION MANUAL( AUTOMATED BLOOD COUNTS AND DIFF.) APPENDIX B-3 CHRONIC KIDNEY DISEASE STAGING PER NKF: MALE GFR INTERPRETATION: 20-49 YRS: >60 mL/min Normal 50-59 YRS: >56 mL/min Normal 60-69 YRS: >49 mL/min Normal 70-79 YRS: >42 mL/min Normal 80 and above >35 mL/min Normal FEMALE GRF INTERPRETATION: 20-39 YRS: >60 mL/min Normal 40-49 YRS: >58 mL/min Normal 50-59 YRS: >51 mL/min Normal 60-69 YRS: >45 mL/min Normal 70-79 YRS: >39 mL/min Normal 80 and above >32 mL/min NormalCLASSIFICATION CHOLESTEROL FOR ADULTS CHILDREN/ADOLESCENTS* DESIRABLE: <200 MG/DL <170 MG/DL BORDER-LINE HIGH RISK: 200-239 MG/DL 170-199 MG/DL HIGH RISK: >240 MG/DL >200 MG/DL CLASS. FOR PRIMARY LDL CHOL PREVENTION: LDL CHOL-CHILD/ADOLESCENTS* DESIRABLE: <130 MG/DL <110 MG/DL BORDERLINE-HIGH RISK: 130- 159 MG/DL 110-129 MG/DL HIGH RISK: >160 MG/DL >130 MG/DL *CHILDREN AND ADOLESCENTS REPRESENTS INDIVIDUALA AGED 2-19 YEARS EXCLUSIVE. Tbili 0.38 mg/dL 0.0-1.2 [facility] NORMAL RANGES Age WBC RBC HGB HCT MCV PLT Adult M 4.1-10.9 4.20-6.30 12.0-18.0 37.0-51.0 80-97 140-440 Adult F 4.1-10.9 4.04-5.48 12.0-18.0 37.0-51.0 80-97 140-440 0 -1 Yr 5.0-20.0 3.9-5.9 15-18 MV: 44 MV: 91 MV: 277 2-9 Yr. 6.0-17.0 3.8-5.4 11-13 MV: 37 MV: 78 MV: 300 10 Yrs. 5.0-13.0 3.8-5.4 12-15 MV: 39 MV: 80 MV: 250 NOTE: * FOR ADULT BLACK MALES AND FEMALES, NORMAL WBC IS 2.9-7.7 K/ML * FOR ADULT BLACK MALES AND FEMALES, NORMAL RBC,HGB, AND HCT IS 5% LESS SOURCE FOR DATA: [email or web address] 1800 OPERATION MANUAL( AUTOMATED BLOOD COUNTS AND DIFF.) APPENDIX B-3 CHRONIC KIDNEY DISEASE STAGING PER NKF: MALE GFR INTERPRETATION: 20-49 YRS: >60 mL/min Normal 50-59 YRS: >56 mL/min Normal 60-69 YRS: >49 mL/min Normal 70-79 YRS: >42 mL/min Normal 80 and above >35 mL/min Normal FEMALE GRF INTERPRETATION: 20-39 YRS: >60 mL/min Normal 40-49 YRS: >58 mL/min Normal 50-59 YRS: >51 mL/min Normal 60-69 YRS: >45 mL/min Normal 70-79 YRS: >39 mL/min Normal 80 and above >32 mL/min NormalCLASSIFICATION CHOLESTEROL FOR ADULTS CHILDREN/ADOLESCENTS* DESIRABLE: <200 MG/DL <170 MG/DL BORDER-LINE HIGH RISK: 200-239 MG/DL 170-199 MG/DL HIGH RISK: >240 MG/DL >200 MG/DL CLASS. FOR PRIMARY LDL CHOL PREVENTION: LDL CHOL-CHILD/ADOLESCENTS* DESIRABLE: <130 MG/DL <110 MG/DL BORDERLINE-HIGH RISK: 130- 159 MG/DL 110-129 MG/DL HIGH RISK: >160 MG/DL >130 MG/DL *CHILDREN AND ADOLESCENTS REPRESENTS INDIVIDUALA AGED 2-19 YEARS EXCLUSIVE. Osmolality-Calculated 282.0 [facility] ([facility] NORMAL RANGES Age WBC RBC HGB HCT MCV PLT Adult M 4.1-10.9 4.20-6.30 12.0-18.0 37.0-51.0 80-97 140-440 Adult F 4.1-10.9 4.04-5.48 12.0-18.0 37.0-51.0 80-97 140-440 0 -1 Yr 5.0-20.0 3.9-5.9 15-18 MV: 44 MV: 91 MV: 277 2-9 Yr. 6.0-17.0 3.8-5.4 11-13 MV: 37 MV: 78 MV: 300 10 Yrs. 5.0-13.0 3.8-5.4 12-15 MV: 39 MV: 80 MV: 250 NOTE: * FOR ADULT BLACK MALES AND FEMALES, NORMAL WBC IS 2.9-7.7 K/ML * FOR ADULT BLACK MALES AND FEMALES, NORMAL RBC,HGB, AND HCT IS 5% LESS SOURCE FOR DATA: [email or web address] 1800 OPERATION MANUAL( AUTOMATED BLOOD COUNTS AND DIFF.) APPENDIX B-3 CHRONIC KIDNEY DISEASE STAGING PER NKF: MALE GFR INTERPRETATION: 20-49 YRS: >60 mL/min Normal 50-59 YRS: >56 mL/min Normal 60-69 YRS: >49 mL/min Normal 70-79 YRS: >42 mL/min Normal 80 and above >35 mL/min Normal FEMALE GRF INTERPRETATION: 20-39 YRS: >60 mL/min Normal 40-49 YRS: >58 mL/min Normal 50-59 YRS: >51 mL/min Normal 60-69 YRS: >45 mL/min Normal 70-79 YRS: >39 mL/min Normal 80 and above >32 mL/min NormalCLASSIFICATION CHOLESTEROL FOR ADULTS CHILDREN/ADOLESCENTS* DESIRABLE: <200 MG/DL <170 MG/DL BORDER-LINE HIGH RISK: 200-239 MG/DL 170-199 MG/DL HIGH RISK: >240 MG/DL >200 MG/DL CLASS. FOR PRIMARY LDL CHOL PREVENTION: LDL CHOL-CHILD/ADOLESCENTS* DESIRABLE: <130 MG/DL <110 MG/DL BORDERLINE-HIGH RISK: 130- 159 MG/DL 110-129 MG/DL HIGH RISK: >160 MG/DL >130 MG/DL *CHILDREN AND ADOLESCENTS REPRESENTS INDIVIDUALA AGED 2-19 YEARS EXCLUSIVE. eGFR Non-Afr. Serbian 96 # [facility] ([facility] NORMAL RANGES Age WBC RBC HGB HCT MCV PLT Adult M 4.1-10.9 4.20-6.30 12.0-18.0 37.0-51.0 80-97 140-440 Adult F 4.1-10.9 4.04-5.48 12.0-18.0 37.0-51.0 80-97 140-440 0 -1 Yr 5.0-20.0 3.9-5.9 15-18 MV: 44 MV: 91 MV: 277 2-9 Yr. 6.0-17.0 3.8-5.4 11-13 MV: 37 MV: 78 MV: 300 10 Yrs. 5.0-13.0 3.8-5.4 12-15 MV: 39 MV: 80 MV: 250 NOTE: * FOR ADULT BLACK MALES AND FEMALES, NORMAL WBC IS 2.9-7.7 K/ML * FOR ADULT BLACK MALES AND FEMALES, NORMAL RBC,HGB, AND HCT IS 5% LESS SOURCE FOR DATA: [email or web address] 1800 OPERATION MANUAL( AUTOMATED BLOOD COUNTS AND DIFF.) APPENDIX B-3 CHRONIC KIDNEY DISEASE STAGING PER NKF: MALE GFR INTERPRETATION: 20-49 YRS: >60 mL/min Normal 50-59 YRS: >56 mL/min Normal 60-69 YRS: >49 mL/min Normal 70-79 YRS: >42 mL/min Normal 80 and above >35 mL/min Normal FEMALE GRF INTERPRETATION: 20-39 YRS: >60 mL/min Normal 40-49 YRS: >58 mL/min Normal 50-59 YRS: >51 mL/min Normal 60-69 YRS: >45 mL/min Normal 70-79 YRS: >39 mL/min Normal 80 and above >32 mL/min NormalCLASSIFICATION CHOLESTEROL FOR ADULTS CHILDREN/ADOLESCENTS* DESIRABLE: <200 MG/DL <170 MG/DL BORDER-LINE HIGH RISK: 200-239 MG/DL 170-199 MG/DL HIGH RISK: >240 MG/DL >200 MG/DL CLASS. FOR PRIMARY LDL CHOL PREVENTION: LDL CHOL-CHILD/ADOLESCENTS* DESIRABLE: <130 MG/DL <110 MG/DL BORDERLINE-HIGH RISK: 130- 159 MG/DL 110-129 MG/DL HIGH RISK: >160 MG/DL >130 MG/DL *CHILDREN AND ADOLESCENTS REPRESENTS INDIVIDUALA AGED 2-19 YEARS EXCLUSIVE. eGFR 111 # [facility] ( [facility] NORMAL RANGES Age WBC RBC HGB HCT MCV PLT Adult M 4.1-10.9 4.20-6.30 12.0-18.0 37.0-51.0 80-97 140-440 Adult F 4.1-10.9 4.04-5.48 12.0-18.0 37.0-51.0 80-97 140-440 0 -1 Yr 5.0-20.0 3.9-5.9 15-18 MV: 44 MV: 91 MV: 277 2-9 Yr. 6.0-17.0 3.8-5.4 11-13 MV: 37 MV: 78 MV: 300 10 Yrs. 5.0-13.0 3.8-5.4 12-15 MV: 39 MV: 80 MV: 250 NOTE: * FOR ADULT BLACK MALES AND FEMALES, NORMAL WBC IS 2.9-7.7 K/ML * FOR ADULT BLACK MALES AND FEMALES, NORMAL RBC,HGB, AND HCT IS 5% LESS SOURCE FOR DATA: [email or web address] 1800 OPERATION MANUAL( AUTOMATED BLOOD COUNTS AND DIFF.) APPENDIX B-3 CHRONIC KIDNEY DISEASE STAGING PER NKF: MALE GFR INTERPRETATION: 20-49 YRS: >60 mL/min Normal 50-59 YRS: >56 mL/min Normal 60-69 YRS: >49 mL/min Normal 70-79 YRS: >42 mL/min Normal 80 and above >35 mL/min Normal FEMALE GRF INTERPRETATION: 20-39 YRS: >60 mL/min Normal 40-49 YRS: >58 mL/min Normal 50-59 YRS: >51 mL/min Normal 60-69 YRS: >45 mL/min Normal 70-79 YRS: >39 mL/min Normal 80 and above >32 mL/min NormalCLASSIFICATION CHOLESTEROL FOR ADULTS CHILDREN/ADOLESCENTS* DESIRABLE: <200 MG/DL <170 MG/DL BORDER-LINE HIGH RISK: 200-239 MG/DL 170-199 MG/DL HIGH RISK: >240 MG/DL >200 MG/DL CLASS. FOR PRIMARY LDL CHOL PREVENTION: LDL CHOL-CHILD/ADOLESCENTS* DESIRABLE: <130 MG/DL <110 MG/DL BORDERLINE-HIGH RISK: 130- 159 MG/DL 110-129 MG/DL HIGH RISK: >160 MG/DL >130 MG/DL *CHILDREN AND ADOLESCENTS REPRESENTS INDIVIDUALA AGED 2-19 YEARS EXCLUSIVE. Anion Gap 17 mmol/L [facility] NORMAL RANGES Age WBC RBC HGB HCT MCV PLT Adult M 4.1-10.9 4.20-6.30 12.0-18.0 37.0-51.0 80-97 140-440 Adult F 4.1-10.9 4.04-5.48 12.0-18.0 37.0-51.0 80-97 140-440 0 -1 Yr 5.0-20.0 3.9-5.9 15-18 MV: 44 MV: 91 MV: 277 2-9 Yr. 6.0-17.0 3.8-5.4 11-13 MV: 37 MV: 78 MV: 300 10 Yrs. 5.0-13.0 3.8-5.4 12-15 MV: 39 MV: 80 MV: 250 NOTE: * FOR ADULT BLACK MALES AND FEMALES, NORMAL WBC IS 2.9-7.7 K/ML * FOR ADULT BLACK MALES AND FEMALES, NORMAL RBC,HGB, AND HCT IS 5% LESS SOURCE FOR DATA: [email or web address] 1800 OPERATION MANUAL( AUTOMATED BLOOD COUNTS AND DIFF.) APPENDIX B-3 CHRONIC KIDNEY DISEASE STAGING PER NKF: MALE GFR INTERPRETATION: 20-49 YRS: >60 mL/min Normal 50-59 YRS: >56 mL/min Normal 60-69 YRS: >49 mL/min Normal 70-79 YRS: >42 mL/min Normal 80 and above >35 mL/min Normal FEMALE GRF INTERPRETATION: 20-39 YRS: >60 mL/min Normal 40-49 YRS: >58 mL/min Normal 50-59 YRS: >51 mL/min Normal 60-69 YRS: >45 mL/min Normal 70-79 YRS: >39 mL/min Normal 80 and above >32 mL/min NormalCLASSIFICATION CHOLESTEROL FOR ADULTS CHILDREN/ADOLESCENTS* DESIRABLE: <200 MG/DL <170 MG/DL BORDER-LINE HIGH RISK: 200-239 MG/DL 170-199 MG/DL HIGH RISK: >240 MG/DL >200 MG/DL CLASS. FOR PRIMARY LDL CHOL PREVENTION: LDL CHOL-CHILD/ADOLESCENTS* DESIRABLE: <130 MG/DL <110 MG/DL BORDERLINE-HIGH RISK: 130- 159 MG/DL 110-129 MG/DL HIGH RISK: >160 MG/DL >130 MG/DL *CHILDREN AND ADOLESCENTS REPRESENTS INDIVIDUALA AGED 2-19 YEARS EXCLUSIVE. ID Date Data Source [id number] 07/06/2020 09:03:00 AM EST [facility] ([facility] Name Value Range Interpretation Code Description Data Sonja rce(s) Supporting Document(s) WBC 5.0 10E3/uL 4.1-10.9 [facility] ([facility] NORMAL RANGES Age WBC RBC HGB HCT MCV PLT Adult M 4.1-10.9 4.20-6.30 12.0-18.0 37.0-51.0 80-97 140-440 Adult F 4.1-10.9 4.04-5.48 12.0-18.0 37.0-51.0 80-97 140-440 0 -1 Yr 5.0-20.0 3.9-5.9 15-18 MV: 44 MV: 91 MV: 277 2-9 Yr. 6.0-17.0 3.8-5.4 11-13 MV: 37 MV: 78 MV: 300 10 Yrs. 5.0-13.0 3.8-5.4 12-15 MV: 39 MV: 80 MV: 250 NOTE: * FOR ADULT BLACK MALES AND FEMALES, NORMAL WBC IS 2.9-7.7 K/ML * FOR ADULT BLACK MALES AND FEMALES, NORMAL RBC,HGB, AND HCT IS 5% LESS SOURCE FOR DATA: [email or web address] 1800 OPERATION MANUAL( AUTOMATED BLOOD COUNTS AND DIFF.) APPENDIX B-3 CHRONIC KIDNEY DISEASE STAGING PER NKF: MALE GFR INTERPRETATION: 20-49 YRS: >60 mL/min Normal 50-59 YRS: >56 mL/min Normal 60-69 YRS: >49 mL/min Normal 70-79 YRS: >42 mL/min Normal 80 and above >35 mL/min Normal FEMALE GRF INTERPRETATION: 20-39 YRS: >60 mL/min Normal 40-49 YRS: >58 mL/min Normal 50-59 YRS: >51 mL/min Normal 60-69 YRS: >45 mL/min Normal 70-79 YRS: >39 mL/min Normal 80 and above >32 mL/min NormalCLASSIFICATION CHOLESTEROL FOR ADULTS CHILDREN/ADOLESCENTS* DESIRABLE: <200 MG/DL <170 MG/DL BORDER-LINE HIGH RISK: 200-239 MG/DL 170-199 MG/DL HIGH RISK: >240 MG/DL >200 MG/DL CLASS. FOR PRIMARY LDL CHOL PREVENTION: LDL CHOL-CHILD/ADOLESCENTS* DESIRABLE: <130 MG/DL <110 MG/DL BORDERLINE-HIGH RISK: 130- 159 MG/DL 110-129 MG/DL HIGH RISK: >160 MG/DL >130 MG/DL *CHILDREN AND ADOLESCENTS REPRESENTS INDIVIDUALA AGED 2-19 YEARS EXCLUSIVE. HCT 42.1 % 37.0-51.0 [facility] NORMAL RANGES Age WBC RBC HGB HCT MCV PLT Adult M 4.1-10.9 4.20-6.30 12.0-18.0 37.0-51.0 80-97 140-440 Adult F 4.1-10.9 4.04-5.48 12.0-18.0 37.0-51.0 80-97 140-440 0 -1 Yr 5.0-20.0 3.9-5.9 15-18 MV: 44 MV: 91 MV: 277 2-9 Yr. 6.0-17.0 3.8-5.4 11-13 MV: 37 MV: 78 MV: 300 10 Yrs. 5.0-13.0 3.8-5.4 12-15 MV: 39 MV: 80 MV: 250 NOTE: * FOR ADULT BLACK MALES AND FEMALES, NORMAL WBC IS 2.9-7.7 K/ML * FOR ADULT BLACK MALES AND FEMALES, NORMAL RBC,HGB, AND HCT IS 5% LESS SOURCE FOR DATA: [email or web address] 1800 OPERATION MANUAL( AUTOMATED BLOOD COUNTS AND DIFF.) APPENDIX B-3 CHRONIC KIDNEY DISEASE STAGING PER NKF: MALE GFR INTERPRETATION: 20-49 YRS: >60 mL/min Normal 50-59 YRS: >56 mL/min Normal 60-69 YRS: >49 mL/min Normal 70-79 YRS: >42 mL/min Normal 80 and above >35 mL/min Normal FEMALE GRF INTERPRETATION: 20-39 YRS: >60 mL/min Normal 40-49 YRS: >58 mL/min Normal 50-59 YRS: >51 mL/min Normal 60-69 YRS: >45 mL/min Normal 70-79 YRS: >39 mL/min Normal 80 and above >32 mL/min NormalCLASSIFICATION CHOLESTEROL FOR ADULTS CHILDREN/ADOLESCENTS* DESIRABLE: <200 MG/DL <170 MG/DL BORDER-LINE HIGH RISK: 200-239 MG/DL 170-199 MG/DL HIGH RISK: >240 MG/DL >200 MG/DL CLASS. FOR PRIMARY LDL CHOL PREVENTION: LDL CHOL-CHILD/ADOLESCENTS* DESIRABLE: <130 MG/DL <110 MG/DL BORDERLINE-HIGH RISK: 130- 159 MG/DL 110-129 MG/DL HIGH RISK: >160 MG/DL >130 MG/DL *CHILDREN AND ADOLESCENTS REPRESENTS INDIVIDUALA AGED 2-19 YEARS EXCLUSIVE. RBC 4.45 10E6/uL 4.20-6.30 [facility] NORMAL RANGES Age WBC RBC HGB HCT MCV PLT Adult M 4.1-10.9 4.20-6.30 12.0-18.0 37.0-51.0 80-97 140-440 Adult F 4.1-10.9 4.04-5.48 12.0-18.0 37.0-51.0 80-97 140-440 0 -1 Yr 5.0-20.0 3.9-5.9 15-18 MV: 44 MV: 91 MV: 277 2-9 Yr. 6.0-17.0 3.8-5.4 11-13 MV: 37 MV: 78 MV: 300 10 Yrs. 5.0-13.0 3.8-5.4 12-15 MV: 39 MV: 80 MV: 250 NOTE: * FOR ADULT BLACK MALES AND FEMALES, NORMAL WBC IS 2.9-7.7 K/ML * FOR ADULT BLACK MALES AND FEMALES, NORMAL RBC,HGB, AND HCT IS 5% LESS SOURCE FOR DATA: [email or web address] 1800 OPERATION MANUAL( AUTOMATED BLOOD COUNTS AND DIFF.) APPENDIX B-3 CHRONIC KIDNEY DISEASE STAGING PER NKF: MALE GFR INTERPRETATION: 20-49 YRS: >60 mL/min Normal 50-59 YRS: >56 mL/min Normal 60-69 YRS: >49 mL/min Normal 70-79 YRS: >42 mL/min Normal 80 and above >35 mL/min Normal FEMALE GRF INTERPRETATION: 20-39 YRS: >60 mL/min Normal 40-49 YRS: >58 mL/min Normal 50-59 YRS: >51 mL/min Normal 60-69 YRS: >45 mL/min Normal 70-79 YRS: >39 mL/min Normal 80 and above >32 mL/min NormalCLASSIFICATION CHOLESTEROL FOR ADULTS CHILDREN/ADOLESCENTS* DESIRABLE: <200 MG/DL <170 MG/DL BORDER-LINE HIGH RISK: 200-239 MG/DL 170-199 MG/DL HIGH RISK: >240 MG/DL >200 MG/DL CLASS. FOR PRIMARY LDL CHOL PREVENTION: LDL CHOL-CHILD/ADOLESCENTS* DESIRABLE: <130 MG/DL <110 MG/DL BORDERLINE-HIGH RISK: 130- 159 MG/DL 110-129 MG/DL HIGH RISK: >160 MG/DL >130 MG/DL *CHILDREN AND ADOLESCENTS REPRESENTS INDIVIDUALA AGED 2-19 YEARS EXCLUSIVE. HGB 14.3 g/dL 12.0-18.0 [facility] NORMAL RANGES Age WBC RBC HGB HCT MCV PLT Adult M 4.1-10.9 4.20-6.30 12.0-18.0 37.0-51.0 80-97 140-440 Adult F 4.1-10.9 4.04-5.48 12.0-18.0 37.0-51.0 80-97 140-440 0 -1 Yr 5.0-20.0 3.9-5.9 15-18 MV: 44 MV: 91 MV: 277 2-9 Yr. 6.0-17.0 3.8-5.4 11-13 MV: 37 MV: 78 MV: 300 10 Yrs. 5.0-13.0 3.8-5.4 12-15 MV: 39 MV: 80 MV: 250 NOTE: * FOR ADULT BLACK MALES AND FEMALES, NORMAL WBC IS 2.9-7.7 K/ML * FOR ADULT BLACK MALES AND FEMALES, NORMAL RBC,HGB, AND HCT IS 5% LESS SOURCE FOR DATA: [email or web address] 1800 OPERATION MANUAL( AUTOMATED BLOOD COUNTS AND DIFF.) APPENDIX B-3 CHRONIC KIDNEY DISEASE STAGING PER NKF: MALE GFR INTERPRETATION: 20-49 YRS: >60 mL/min Normal 50-59 YRS: >56 mL/min Normal 60-69 YRS: >49 mL/min Normal 70-79 YRS: >42 mL/min Normal 80 and above >35 mL/min Normal FEMALE GRF INTERPRETATION: 20-39 YRS: >60 mL/min Normal 40-49 YRS: >58 mL/min Normal 50-59 YRS: >51 mL/min Normal 60-69 YRS: >45 mL/min Normal 70-79 YRS: >39 mL/min Normal 80 and above >32 mL/min NormalCLASSIFICATION CHOLESTEROL FOR ADULTS CHILDREN/ADOLESCENTS* DESIRABLE: <200 MG/DL <170 MG/DL BORDER-LINE HIGH RISK: 200-239 MG/DL 170-199 MG/DL HIGH RISK: >240 MG/DL >200 MG/DL CLASS. FOR PRIMARY LDL CHOL PREVENTION: LDL CHOL-CHILD/ADOLESCENTS* DESIRABLE: <130 MG/DL <110 MG/DL BORDERLINE-HIGH RISK: 130- 159 MG/DL 110-129 MG/DL HIGH RISK: >160 MG/DL >130 MG/DL *CHILDREN AND ADOLESCENTS REPRESENTS INDIVIDUALA AGED 2-19 YEARS EXCLUSIVE. MCV 94.6 fL 80.0-97.0 [facility] ([facility] NORMAL RANGES Age WBC RBC HGB HCT MCV PLT Adult M 4.1-10.9 4.20-6.30 12.0-18.0 37.0-51.0 80-97 140-440 Adult F 4.1-10.9 4.04-5.48 12.0-18.0 37.0-51.0 80-97 140-440 0 -1 Yr 5.0-20.0 3.9-5.9 15-18 MV: 44 MV: 91 MV: 277 2-9 Yr. 6.0-17.0 3.8-5.4 11-13 MV: 37 MV: 78 MV: 300 10 Yrs. 5.0-13.0 3.8-5.4 12-15 MV: 39 MV: 80 MV: 250 NOTE: * FOR ADULT BLACK MALES AND FEMALES, NORMAL WBC IS 2.9-7.7 K/ML * FOR ADULT BLACK MALES AND FEMALES, NORMAL RBC,HGB, AND HCT IS 5% LESS SOURCE FOR DATA: [email or web address] 1800 OPERATION MANUAL( AUTOMATED BLOOD COUNTS AND DIFF.) APPENDIX B-3 CHRONIC KIDNEY DISEASE STAGING PER NKF: MALE GFR INTERPRETATION: 20-49 YRS: >60 mL/min Normal 50-59 YRS: >56 mL/min Normal 60-69 YRS: >49 mL/min Normal 70-79 YRS: >42 mL/min Normal 80 and above >35 mL/min Normal FEMALE GRF INTERPRETATION: 20-39 YRS: >60 mL/min Normal 40-49 YRS: >58 mL/min Normal 50-59 YRS: >51 mL/min Normal 60-69 YRS: >45 mL/min Normal 70-79 YRS: >39 mL/min Normal 80 and above >32 mL/min NormalCLASSIFICATION CHOLESTEROL FOR ADULTS CHILDREN/ADOLESCENTS* DESIRABLE: <200 MG/DL <170 MG/DL BORDER-LINE HIGH RISK: 200-239 MG/DL 170-199 MG/DL HIGH RISK: >240 MG/DL >200 MG/DL CLASS. FOR PRIMARY LDL CHOL PREVENTION: LDL CHOL-CHILD/ADOLESCENTS* DESIRABLE: <130 MG/DL <110 MG/DL BORDERLINE-HIGH RISK: 130- 159 MG/DL 110-129 MG/DL HIGH RISK: >160 MG/DL >130 MG/DL *CHILDREN AND ADOLESCENTS REPRESENTS INDIVIDUALA AGED 2-19 YEARS EXCLUSIVE. MCH 32.1 pg 26.0-32.0 Above high normal [facility] NORMAL RANGES Age WBC RBC HGB HCT MCV PLT Adult M 4.1-10.9 4.20-6.30 12.0-18.0 37.0-51.0 80-97 140-440 Adult F 4.1-10.9 4.04-5.48 12.0-18.0 37.0-51.0 80-97 140-440 0 -1 Yr 5.0-20.0 3.9-5.9 15-18 MV: 44 MV: 91 MV: 277 2-9 Yr. 6.0-17.0 3.8-5.4 11-13 MV: 37 MV: 78 MV: 300 10 Yrs. 5.0-13.0 3.8-5.4 12-15 MV: 39 MV: 80 MV: 250 NOTE: * FOR ADULT BLACK MALES AND FEMALES, NORMAL WBC IS 2.9-7.7 K/ML * FOR ADULT BLACK MALES AND FEMALES, NORMAL RBC,HGB, AND HCT IS 5% LESS SOURCE FOR DATA: [employer] 1800 OPERATION MANUAL( AUTOMATED BLOOD COUNTS AND DIFF.) APPENDIX B-3 CHRONIC KIDNEY DISEASE STAGING PER NKF: MALE GFR INTERPRETATION: 20-49 YRS: >60 mL/min Normal 50-59 YRS: >56 mL/min Normal 60-69 YRS: >49 mL/min Normal 70-79 YRS: >42 mL/min Normal 80 and above >35 mL/min Normal FEMALE GRF INTERPRETATION: 20-39 YRS: >60 mL/min Normal 40-49 YRS: >58 mL/min Normal 50-59 YRS: >51 mL/min Normal 60-69 YRS: >45 mL/min Normal 70-79 YRS: >39 mL/min Normal 80 and above >32 mL/min NormalCLASSIFICATION CHOLESTEROL FOR ADULTS CHILDREN/ADOLESCENTS* DESIRABLE: <200 MG/DL <170 MG/DL BORDER-LINE HIGH RISK: 200-239 MG/DL 170-199 MG/DL HIGH RISK: >240 MG/DL >200 MG/DL CLASS. FOR PRIMARY LDL CHOL PREVENTION: LDL CHOL-CHILD/ADOLESCENTS* DESIRABLE: <130 MG/DL <110 MG/DL BORDERLINE-HIGH RISK: 130- 159 MG/DL 110-129 MG/DL HIGH RISK: >160 MG/DL >130 MG/DL *CHILDREN AND ADOLESCENTS REPRESENTS INDIVIDUALA AGED 2-19 YEARS EXCLUSIVE. PLT 199 10E3/uL 140-440 [facility] ([facility] NORMAL RANGES Age WBC RBC HGB HCT MCV PLT Adult M 4.1-10.9 4.20-6.30 12.0-18.0 37.0-51.0 80-97 140-440 Adult F 4.1-10.9 4.04-5.48 12.0-18.0 37.0-51.0 80-97 140-440 0 -1 Yr 5.0-20.0 3.9-5.9 15-18 MV: 44 MV: 91 MV: 277 2-9 Yr. 6.0-17.0 3.8-5.4 11-13 MV: 37 MV: 78 MV: 300 10 Yrs. 5.0-13.0 3.8-5.4 12-15 MV: 39 MV: 80 MV: 250 NOTE: * FOR ADULT BLACK MALES AND FEMALES, NORMAL WBC IS 2.9-7.7 K/ML * FOR ADULT BLACK MALES AND FEMALES, NORMAL RBC,HGB, AND HCT IS 5% LESS SOURCE FOR DATA: [email or web address] 1800 OPERATION MANUAL( AUTOMATED BLOOD COUNTS AND DIFF.) APPENDIX B-3 CHRONIC KIDNEY DISEASE STAGING PER NKF: MALE GFR INTERPRETATION: 20-49 YRS: >60 mL/min Normal 50-59 YRS: >56 mL/min Normal 60-69 YRS: >49 mL/min Normal 70-79 YRS: >42 mL/min Normal 80 and above >35 mL/min Normal FEMALE GRF INTERPRETATION: 20-39 YRS: >60 mL/min Normal 40-49 YRS: >58 mL/min Normal 50-59 YRS: >51 mL/min Normal 60-69 YRS: >45 mL/min Normal 70-79 YRS: >39 mL/min Normal 80 and above >32 mL/min NormalCLASSIFICATION CHOLESTEROL FOR ADULTS CHILDREN/ADOLESCENTS* DESIRABLE: <200 MG/DL <170 MG/DL BORDER-LINE HIGH RISK: 200-239 MG/DL 170-199 MG/DL HIGH RISK: >240 MG/DL >200 MG/DL CLASS. FOR PRIMARY LDL CHOL PREVENTION: LDL CHOL-CHILD/ADOLESCENTS* DESIRABLE: <130 MG/DL <110 MG/DL BORDERLINE-HIGH RISK: 130- 159 MG/DL 110-129 MG/DL HIGH RISK: >160 MG/DL >130 MG/DL *CHILDREN AND ADOLESCENTS REPRESENTS INDIVIDUALA AGED 2-19 YEARS EXCLUSIVE. MCHC 34.0 g/dL 31.0-36.0 [facility] ([facility] NORMAL RANGES Age WBC RBC HGB HCT MCV PLT Adult M 4.1-10.9 4.20-6.30 12.0-18.0 37.0-51.0 80-97 140-440 Adult F 4.1-10.9 4.04-5.48 12.0-18.0 37.0-51.0 80-97 140-440 0 -1 Yr 5.0-20.0 3.9-5.9 15-18 MV: 44 MV: 91 MV: 277 2-9 Yr. 6.0-17.0 3.8-5.4 11-13 MV: 37 MV: 78 MV: 300 10 Yrs. 5.0-13.0 3.8-5.4 12-15 MV: 39 MV: 80 MV: 250 NOTE: * FOR ADULT BLACK MALES AND FEMALES, NORMAL WBC IS 2.9-7.7 K/ML * FOR ADULT BLACK MALES AND FEMALES, NORMAL RBC,HGB, AND HCT IS 5% LESS SOURCE FOR DATA: [email or web address] 1800 OPERATION MANUAL( AUTOMATED BLOOD COUNTS AND DIFF.) APPENDIX B-3 CHRONIC KIDNEY DISEASE STAGING PER NKF: MALE GFR INTERPRETATION: 20-49 YRS: >60 mL/min Normal 50-59 YRS: >56 mL/min Normal 60-69 YRS: >49 mL/min Normal 70-79 YRS: >42 mL/min Normal 80 and above >35 mL/min Normal FEMALE GRF INTERPRETATION: 20-39 YRS: >60 mL/min Normal 40-49 YRS: >58 mL/min Normal 50-59 YRS: >51 mL/min Normal 60-69 YRS: >45 mL/min Normal 70-79 YRS: >39 mL/min Normal 80 and above >32 mL/min NormalCLASSIFICATION CHOLESTEROL FOR ADULTS CHILDREN/ADOLESCENTS* DESIRABLE: <200 MG/DL <170 MG/DL BORDER-LINE HIGH RISK: 200-239 MG/DL 170-199 MG/DL HIGH RISK: >240 MG/DL >200 MG/DL CLASS. FOR PRIMARY LDL CHOL PREVENTION: LDL CHOL-CHILD/ADOLESCENTS* DESIRABLE: <130 MG/DL <110 MG/DL BORDERLINE-HIGH RISK: 130- 159 MG/DL 110-129 MG/DL HIGH RISK: >160 MG/DL >130 MG/DL *CHILDREN AND ADOLESCENTS REPRESENTS INDIVIDUALA AGED 2-19 YEARS EXCLUSIVE. Neut% 59.1 % 37.0-92.0 [facility] NORMAL RANGES Age WBC RBC HGB HCT MCV PLT Adult M 4.1-10.9 4.20-6.30 12.0-18.0 37.0-51.0 80-97 140-440 Adult F 4.1-10.9 4.04-5.48 12.0-18.0 37.0-51.0 80-97 140-440 0 -1 Yr 5.0-20.0 3.9-5.9 15-18 MV: 44 MV: 91 MV: 277 2-9 Yr. 6.0-17.0 3.8-5.4 11-13 MV: 37 MV: 78 MV: 300 10 Yrs. 5.0-13.0 3.8-5.4 12-15 MV: 39 MV: 80 MV: 250 NOTE: * FOR ADULT BLACK MALES AND FEMALES, NORMAL WBC IS 2.9-7.7 K/ML * FOR ADULT BLACK MALES AND FEMALES, NORMAL RBC,HGB, AND HCT IS 5% LESS SOURCE FOR DATA: [email or web address] 1800 OPERATION MANUAL( AUTOMATED BLOOD COUNTS AND DIFF.) APPENDIX B-3 CHRONIC KIDNEY DISEASE STAGING PER NKF: MALE GFR INTERPRETATION: 20-49 YRS: >60 mL/min Normal 50-59 YRS: >56 mL/min Normal 60-69 YRS: >49 mL/min Normal 70-79 YRS: >42 mL/min Normal 80 and above >35 mL/min Normal FEMALE GRF INTERPRETATION: 20-39 YRS: >60 mL/min Normal 40-49 YRS: >58 mL/min Normal 50-59 YRS: >51 mL/min Normal 60-69 YRS: >45 mL/min Normal 70-79 YRS: >39 mL/min Normal 80 and above >32 mL/min NormalCLASSIFICATION CHOLESTEROL FOR ADULTS CHILDREN/ADOLESCENTS* DESIRABLE: <200 MG/DL <170 MG/DL BORDER-LINE HIGH RISK: 200-239 MG/DL 170-199 MG/DL HIGH RISK: >240 MG/DL >200 MG/DL CLASS. FOR PRIMARY LDL CHOL PREVENTION: LDL CHOL-CHILD/ADOLESCENTS* DESIRABLE: <130 MG/DL <110 MG/DL BORDERLINE-HIGH RISK: 130- 159 MG/DL 110-129 MG/DL HIGH RISK: >160 MG/DL >130 MG/DL *CHILDREN AND ADOLESCENTS REPRESENTS INDIVIDUALA AGED 2-19 YEARS EXCLUSIVE. RDW-CV 12.1 % 11.5-14.5 [facility] NORMAL RANGES Age WBC RBC HGB HCT MCV PLT Adult M 4.1-10.9 4.20-6.30 12.0-18.0 37.0-51.0 80-97 140-440 Adult F 4.1-10.9 4.04-5.48 12.0-18.0 37.0-51.0 80-97 140-440 0 -1 Yr 5.0-20.0 3.9-5.9 15-18 MV: 44 MV: 91 MV: 277 2-9 Yr. 6.0-17.0 3.8-5.4 11-13 MV: 37 MV: 78 MV: 300 10 Yrs. 5.0-13.0 3.8-5.4 12-15 MV: 39 MV: 80 MV: 250 NOTE: * FOR ADULT BLACK MALES AND FEMALES, NORMAL WBC IS 2.9-7.7 K/ML * FOR ADULT BLACK MALES AND FEMALES, NORMAL RBC,HGB, AND HCT IS 5% LESS SOURCE FOR DATA: [email or web address] 1800 OPERATION MANUAL( AUTOMATED BLOOD COUNTS AND DIFF.) APPENDIX B-3 CHRONIC KIDNEY DISEASE STAGING PER NKF: MALE GFR INTERPRETATION: 20-49 YRS: >60 mL/min Normal 50-59 YRS: >56 mL/min Normal 60-69 YRS: >49 mL/min Normal 70-79 YRS: >42 mL/min Normal 80 and above >35 mL/min Normal FEMALE GRF INTERPRETATION: 20-39 YRS: >60 mL/min Normal 40-49 YRS: >58 mL/min Normal 50-59 YRS: >51 mL/min Normal 60-69 YRS: >45 mL/min Normal 70-79 YRS: >39 mL/min Normal 80 and above >32 mL/min NormalCLASSIFICATION CHOLESTEROL FOR ADULTS CHILDREN/ADOLESCENTS* DESIRABLE: <200 MG/DL <170 MG/DL BORDER-LINE HIGH RISK: 200-239 MG/DL 170-199 MG/DL HIGH RISK: >240 MG/DL >200 MG/DL CLASS. FOR PRIMARY LDL CHOL PREVENTION: LDL CHOL-CHILD/ADOLESCENTS* DESIRABLE: <130 MG/DL <110 MG/DL BORDERLINE-HIGH RISK: 130- 159 MG/DL 110-129 MG/DL HIGH RISK: >160 MG/DL >130 MG/DL *CHILDREN AND ADOLESCENTS REPRESENTS INDIVIDUALA AGED 2-19 YEARS EXCLUSIVE. Lym% 33.8 % 10.0-58.5 [facility] ([facility] NORMAL RANGES Age WBC RBC HGB HCT MCV PLT Adult M 4.1-10.9 4.20-6.30 12.0-18.0 37.0-51.0 80-97 140-440 Adult F 4.1-10.9 4.04-5.48 12.0-18.0 37.0-51.0 80-97 140-440 0 -1 Yr 5.0-20.0 3.9-5.9 15-18 MV: 44 MV: 91 MV: 277 2-9 Yr. 6.0-17.0 3.8-5.4 11-13 MV: 37 MV: 78 MV: 300 10 Yrs. 5.0-13.0 3.8-5.4 12-15 MV: 39 MV: 80 MV: 250 NOTE: * FOR ADULT BLACK MALES AND FEMALES, NORMAL WBC IS 2.9-7.7 K/ML * FOR ADULT BLACK MALES AND FEMALES, NORMAL RBC,HGB, AND HCT IS 5% LESS SOURCE FOR DATA: [email or web address] 1800 OPERATION MANUAL( AUTOMATED BLOOD COUNTS AND DIFF.) APPENDIX B-3 CHRONIC KIDNEY DISEASE STAGING PER NKF: MALE GFR INTERPRETATION: 20-49 YRS: >60 mL/min Normal 50-59 YRS: >56 mL/min Normal 60-69 YRS: >49 mL/min Normal 70-79 YRS: >42 mL/min Normal 80 and above >35 mL/min Normal FEMALE GRF INTERPRETATION: 20-39 YRS: >60 mL/min Normal 40-49 YRS: >58 mL/min Normal 50-59 YRS: >51 mL/min Normal 60-69 YRS: >45 mL/min Normal 70-79 YRS: >39 mL/min Normal 80 and above >32 mL/min NormalCLASSIFICATION CHOLESTEROL FOR ADULTS CHILDREN/ADOLESCENTS* DESIRABLE: <200 MG/DL <170 MG/DL BORDER-LINE HIGH RISK: 200-239 MG/DL 170-199 MG/DL HIGH RISK: >240 MG/DL >200 MG/DL CLASS. FOR PRIMARY LDL CHOL PREVENTION: LDL CHOL-CHILD/ADOLESCENTS* DESIRABLE: <130 MG/DL <110 MG/DL BORDERLINE-HIGH RISK: 130- 159 MG/DL 110-129 MG/DL HIGH RISK: >160 MG/DL >130 MG/DL *CHILDREN AND ADOLESCENTS REPRESENTS INDIVIDUALA AGED 2-19 YEARS EXCLUSIVE. MXD% 7.1 % 0.1-24.0 [facility] NORMAL RANGES Age WBC RBC HGB HCT MCV PLT Adult M 4.1-10.9 4.20-6.30 12.0-18.0 37.0-51.0 80-97 140-440 Adult F 4.1-10.9 4.04-5.48 12.0-18.0 37.0-51.0 80-97 140-440 0 -1 Yr 5.0-20.0 3.9-5.9 15-18 MV: 44 MV: 91 MV: 277 2-9 Yr. 6.0-17.0 3.8-5.4 11-13 MV: 37 MV: 78 MV: 300 10 Yrs. 5.0-13.0 3.8-5.4 12-15 MV: 39 MV: 80 MV: 250 NOTE: * FOR ADULT BLACK MALES AND FEMALES, NORMAL WBC IS 2.9-7.7 K/ML * FOR ADULT BLACK MALES AND FEMALES, NORMAL RBC,HGB, AND HCT IS 5% LESS SOURCE FOR DATA: [email or web address] 1800 OPERATION MANUAL( AUTOMATED BLOOD COUNTS AND DIFF.) APPENDIX B-3 CHRONIC KIDNEY DISEASE STAGING PER NKF: MALE GFR INTERPRETATION: 20-49 YRS: >60 mL/min Normal 50-59 YRS: >56 mL/min Normal 60-69 YRS: >49 mL/min Normal 70-79 YRS: >42 mL/min Normal 80 and above >35 mL/min Normal FEMALE GRF INTERPRETATION: 20-39 YRS: >60 mL/min Normal 40-49 YRS: >58 mL/min Normal 50-59 YRS: >51 mL/min Normal 60-69 YRS: >45 mL/min Normal 70-79 YRS: >39 mL/min Normal 80 and above >32 mL/min NormalCLASSIFICATION CHOLESTEROL FOR ADULTS CHILDREN/ADOLESCENTS* DESIRABLE: <200 MG/DL <170 MG/DL BORDER-LINE HIGH RISK: 200-239 MG/DL 170-199 MG/DL HIGH RISK: >240 MG/DL >200 MG/DL CLASS. FOR PRIMARY LDL CHOL PREVENTION: LDL CHOL-CHILD/ADOLESCENTS* DESIRABLE: <130 MG/DL <110 MG/DL BORDERLINE-HIGH RISK: 130- 159 MG/DL 110-129 MG/DL HIGH RISK: >160 MG/DL >130 MG/DL *CHILDREN AND ADOLESCENTS REPRESENTS INDIVIDUALA AGED 2-19 YEARS EXCLUSIVE. Lym# 1.7 10E3/uL 0.6-4.1 [facility] ([facility] NORMAL RANGES Age WBC RBC HGB HCT MCV PLT Adult M 4.1-10.9 4.20-6.30 12.0-18.0 37.0-51.0 80-97 140-440 Adult F 4.1-10.9 4.04-5.48 12.0-18.0 37.0-51.0 80-97 140-440 0 -1 Yr 5.0-20.0 3.9-5.9 15-18 MV: 44 MV: 91 MV: 277 2-9 Yr. 6.0-17.0 3.8-5.4 11-13 MV: 37 MV: 78 MV: 300 10 Yrs. 5.0-13.0 3.8-5.4 12-15 MV: 39 MV: 80 MV: 250 NOTE: * FOR ADULT BLACK MALES AND FEMALES, NORMAL WBC IS 2.9-7.7 K/ML * FOR ADULT BLACK MALES AND FEMALES, NORMAL RBC,HGB, AND HCT IS 5% LESS SOURCE FOR DATA: [email or web address] 1800 OPERATION MANUAL( AUTOMATED BLOOD COUNTS AND DIFF.) APPENDIX B-3 CHRONIC KIDNEY DISEASE STAGING PER NKF: MALE GFR INTERPRETATION: 20-49 YRS: >60 mL/min Normal 50-59 YRS: >56 mL/min Normal 60-69 YRS: >49 mL/min Normal 70-79 YRS: >42 mL/min Normal 80 and above >35 mL/min Normal FEMALE GRF INTERPRETATION: 20-39 YRS: >60 mL/min Normal 40-49 YRS: >58 mL/min Normal 50-59 YRS: >51 mL/min Normal 60-69 YRS: >45 mL/min Normal 70-79 YRS: >39 mL/min Normal 80 and above >32 mL/min NormalCLASSIFICATION CHOLESTEROL FOR ADULTS CHILDREN/ADOLESCENTS* DESIRABLE: <200 MG/DL <170 MG/DL BORDER-LINE HIGH RISK: 200-239 MG/DL 170-199 MG/DL HIGH RISK: >240 MG/DL >200 MG/DL CLASS. FOR PRIMARY LDL CHOL PREVENTION: LDL CHOL-CHILD/ADOLESCENTS* DESIRABLE: <130 MG/DL <110 MG/DL BORDERLINE-HIGH RISK: 130- 159 MG/DL 110-129 MG/DL HIGH RISK: >160 MG/DL >130 MG/DL *CHILDREN AND ADOLESCENTS REPRESENTS INDIVIDUALA AGED 2-19 YEARS EXCLUSIVE. Neut# 2.9 % 2.0-7.8 [facility] ([facility] NORMAL RANGES Age WBC RBC HGB HCT MCV PLT Adult M 4.1-10.9 4.20-6.30 12.0-18.0 37.0-51.0 80-97 140-440 Adult F 4.1-10.9 4.04-5.48 12.0-18.0 37.0-51.0 80-97 140-440 0 -1 Yr 5.0-20.0 3.9-5.9 15-18 MV: 44 MV: 91 MV: 277 2-9 Yr. 6.0-17.0 3.8-5.4 11-13 MV: 37 MV: 78 MV: 300 10 Yrs. 5.0-13.0 3.8-5.4 12-15 MV: 39 MV: 80 MV: 250 NOTE: * FOR ADULT BLACK MALES AND FEMALES, NORMAL WBC IS 2.9-7.7 K/ML * FOR ADULT BLACK MALES AND FEMALES, NORMAL RBC,HGB, AND HCT IS 5% LESS SOURCE FOR DATA: [email or web address] 1800 OPERATION MANUAL( AUTOMATED BLOOD COUNTS AND DIFF.) APPENDIX B-3 CHRONIC KIDNEY DISEASE STAGING PER NKF: MALE GFR INTERPRETATION: 20-49 YRS: >60 mL/min Normal 50-59 YRS: >56 mL/min Normal 60-69 YRS: >49 mL/min Normal 70-79 YRS: >42 mL/min Normal 80 and above >35 mL/min Normal FEMALE GRF INTERPRETATION: 20-39 YRS: >60 mL/min Normal 40-49 YRS: >58 mL/min Normal 50-59 YRS: >51 mL/min Normal 60-69 YRS: >45 mL/min Normal 70-79 YRS: >39 mL/min Normal 80 and above >32 mL/min NormalCLASSIFICATION CHOLESTEROL FOR ADULTS CHILDREN/ADOLESCENTS* DESIRABLE: <200 MG/DL <170 MG/DL BORDER-LINE HIGH RISK: 200-239 MG/DL 170-199 MG/DL HIGH RISK: >240 MG/DL >200 MG/DL CLASS. FOR PRIMARY LDL CHOL PREVENTION: LDL CHOL-CHILD/ADOLESCENTS* DESIRABLE: <130 MG/DL <110 MG/DL BORDERLINE-HIGH RISK: 130- 159 MG/DL 110-129 MG/DL HIGH RISK: >160 MG/DL >130 MG/DL *CHILDREN AND ADOLESCENTS REPRESENTS INDIVIDUALA AGED 2-19 YEARS EXCLUSIVE. MXD# 0.4 10E3/uL 0.0-1.8 [facility] NORMAL RANGES Age WBC RBC HGB HCT MCV PLT Adult M 4.1-10.9 4.20-6.30 12.0-18.0 37.0-51.0 80-97 140-440 Adult F 4.1-10.9 4.04-5.48 12.0-18.0 37.0-51.0 80-97 140-440 0 -1 Yr 5.0-20.0 3.9-5.9 15-18 MV: 44 MV: 91 MV: 277 2-9 Yr. 6.0-17.0 3.8-5.4 11-13 MV: 37 MV: 78 MV: 300 10 Yrs. 5.0-13.0 3.8-5.4 12-15 MV: 39 MV: 80 MV: 250 NOTE: * FOR ADULT BLACK MALES AND FEMALES, NORMAL WBC IS 2.9-7.7 K/ML * FOR ADULT BLACK MALES AND FEMALES, NORMAL RBC,HGB, AND HCT IS 5% LESS SOURCE FOR DATA: [email or web address] 1800 OPERATION MANUAL( AUTOMATED BLOOD COUNTS AND DIFF.) APPENDIX B-3 CHRONIC KIDNEY DISEASE STAGING PER NKF: MALE GFR INTERPRETATION: 20-49 YRS: >60 mL/min Normal 50-59 YRS: >56 mL/min Normal 60-69 YRS: >49 mL/min Normal 70-79 YRS: >42 mL/min Normal 80 and above >35 mL/min Normal FEMALE GRF INTERPRETATION: 20-39 YRS: >60 mL/min Normal 40-49 YRS: >58 mL/min Normal 50-59 YRS: >51 mL/min Normal 60-69 YRS: >45 mL/min Normal 70-79 YRS: >39 mL/min Normal 80 and above >32 mL/min NormalCLASSIFICATION CHOLESTEROL FOR ADULTS CHILDREN/ADOLESCENTS* DESIRABLE: <200 MG/DL <170 MG/DL BORDER-LINE HIGH RISK: 200-239 MG/DL 170-199 MG/DL HIGH RISK: >240 MG/DL >200 MG/DL CLASS. FOR PRIMARY LDL CHOL PREVENTION: LDL CHOL-CHILD/ADOLESCENTS* DESIRABLE: <130 MG/DL <110 MG/DL BORDERLINE-HIGH RISK: 130- 159 MG/DL 110-129 MG/DL HIGH RISK: >160 MG/DL >130 MG/DL *CHILDREN AND ADOLESCENTS REPRESENTS INDIVIDUALA AGED 2-19 YEARS EXCLUSIVE. MPV 11.5 fL 9.0-13.0 [facility] ([facility] NORMAL RANGES Age WBC RBC HGB HCT MCV PLT Adult M 4.1-10.9 4.20-6.30 12.0-18.0 37.0-51.0 80-97 140-440 Adult F 4.1-10.9 4.04-5.48 12.0-18.0 37.0-51.0 80-97 140-440 0 -1 Yr 5.0-20.0 3.9-5.9 15-18 MV: 44 MV: 91 MV: 277 2-9 Yr. 6.0-17.0 3.8-5.4 11-13 MV: 37 MV: 78 MV: 300 10 Yrs. 5.0-13.0 3.8-5.4 12-15 MV: 39 MV: 80 MV: 250 NOTE: * FOR ADULT BLACK MALES AND FEMALES, NORMAL WBC IS 2.9-7.7 K/ML * FOR ADULT BLACK MALES AND FEMALES, NORMAL RBC,HGB, AND HCT IS 5% LESS SOURCE FOR DATA: [email or web address] 1800 OPERATION MANUAL( AUTOMATED BLOOD COUNTS AND DIFF.) APPENDIX B-3 CHRONIC KIDNEY DISEASE STAGING PER NKF: MALE GFR INTERPRETATION: 20-49 YRS: >60 mL/min Normal 50-59 YRS: >56 mL/min Normal 60-69 YRS: >49 mL/min Normal 70-79 YRS: >42 mL/min Normal 80 and above >35 mL/min Normal FEMALE GRF INTERPRETATION: 20-39 YRS: >60 mL/min Normal 40-49 YRS: >58 mL/min Normal 50-59 YRS: >51 mL/min Normal 60-69 YRS: >45 mL/min Normal 70-79 YRS: >39 mL/min Normal 80 and above >32 mL/min NormalCLASSIFICATION CHOLESTEROL FOR ADULTS CHILDREN/ADOLESCENTS* DESIRABLE: <200 MG/DL <170 MG/DL BORDER-LINE HIGH RISK: 200-239 MG/DL 170-199 MG/DL HIGH RISK: >240 MG/DL >200 MG/DL CLASS. FOR PRIMARY LDL CHOL PREVENTION: LDL CHOL-CHILD/ADOLESCENTS* DESIRABLE: <130 MG/DL <110 MG/DL BORDERLINE-HIGH RISK: 130- 159 MG/DL 110-129 MG/DL HIGH RISK: >160 MG/DL >130 MG/DL *CHILDREN AND ADOLESCENTS REPRESENTS INDIVIDUALA AGED 2-19 YEARS EXCLUSIVE. ID Date Data Source [id number] 07/06/2020 09:02:00 AM EST [facility] ([facility] Name Value Range Interpretation Code Description Data Sonja rce(s) Supporting Document(s) Thyrotropin [Units/volume] in Serum or Plasma 2.780 ulU/mL 0.60-4.8 [facility] Procedure Social History Code Duration Value Status Description Data Source(s ) Smoking 04/03/2021 12:00:00 AM EDT Former Smoker completed Former [facility] Vital Signs ID Date Data Source UNK Name Value Range Interpretation Code Description Data Source(s) Body temperature 97.5 [degF] 97.5 [degF] [facility] Body surface area Derived from formula 1.83 m2 1.83 m2 [facility] ([facility]) Systolic blood pressure 130 mm[Hg] 130 mm[Hg] [facility] Diastolic blood pressure 87 mm[Hg] 87 mm[Hg] [facility] ([facility]) Heart rate 67 /min 67 /min [facility] ([facility]) Body temperature 98.2 [degF] 98.2 [degF] [facility] ([facility]) Body height 60 [in_i] 60 [in_i] [facility] ([facility]) 5'0" Body weight 191.50 [lb_av] 191.50 [lb_av] [facility] ([facility]) Body mass index (BMI) [Ratio] 37.4 kg/m2 37.4 k g/m2 [facility] ([facility]) [place] body weight 100 [lb_av] 100 [lb_av] [facility] ([facility]) Body weight 86.864 kg 86.864 kg [facility] ([facility]) [place] body weight 100 [lb_av] 100 [lb_av] [facility] ([facility] Systolic blood pressure 106 mm[Hg] 106 mm[Hg] [facility] ([facility] Diastolic blood pressure 80 mm[Hg] 80 mm[Hg] [facility] ([facility] Body temperature 97.5 [degF] 97.5 [degF] [facility] ([facility] Heart rate 79 /min 79 /min [facility] ([facility] Respiratory rate 16 /min 16 /min [facility] ( [facility] Body height 60.6 [in_i] 60.6 [in_i] [facility] ([facility] 5'0.60" Body weight 193.00 [lb_av] 193.00 [lb_av] [facility] ([facility] Body mass index (BMI) [Ratio] 36.9 kg/m2 36.9 k g/m2 [facility] ([facility] Oxygen saturation in Arterial blood by Pulse oximetry 98 % 98 % [facility] ([facility] Body weight 194 [lb_av] 194 [lb_av] eCW1 ([facility]) Body weight 88 kg 88 kg W1 ([facility]) Body height 60 [in_i] 60 [in_i] eCW1 ([facility]) Body mass index (BMI) [Ratio] 37.88 kg/m2 37.88 kg/m2 eCW1 ([facility]) Systolic blood pressure 124 mm[Hg] 124 mm[Hg] e CW1 ([facility]) Diastolic blood pressure 78 mm[Hg] 78 mm[Hg] eCW1 ([facility]) Systolic blood pressure 140 mm[Hg] 140 mm[Hg] [facility] ([facility]) Diastolic blood pressure 102 mm[Hg] 102 mm[Hg] [facility] ([facility]) Body weight 180.00 [lb_av] 180.00 [lb_av] [facility] ([facility]) Body height 60 [in_i] 60 [in_i] [facility] ([facility]) 5'0" Body mass index (BMI) [Ratio] 35.1 kg/m2 35.1 k g/m2 [facility] ([facility]) Body temperature 98.1 [degF] 98.1 [degF] [facility] ([facility]) Oxygen saturation in Arterial blood by Pulse oximetry 97 % 97 % [facility] ([facility] Systolic blood pressure 134 mm[Hg] 134 mm[Hg] [facility] ([facility] Diastolic blood pressure 74 mm[Hg] 74 mm[Hg] [facility] ([facility] Body temperature 97.2 [degF] 97.2 [degF] [facility] ([facility] Heart rate 85 /min 85 /min [facility] ([facility] Respiratory rate 16 /min 16 /min [facility] ( [facility] Body height 60.6 [in_i] 60.6 [in_i] [facility] ([facility] 5'0.60" Body weight 188.00 [lb_av] 188.00 [lb_av] [facility] ([facility] [place] body weight 100 [lb_av] 100 [lb_av] [facility] ([facility] Body mass index (BMI) [Ratio] 36.0 kg/m2 36.0 k g/m2 [facility] ([facility] Body temperature 97.9 [degF] 97.9 [degF] [facility] ([facility]) Body temperature 97.3 [degF] 97.3 [degF] [facility] ([facility]) Body temperature 97.2 [degF] 97.2 [degF] [facility] ([facility]) Systolic blood pressure 120 mm[Hg] 120 mm[Hg] [facility] ([facility], ) Diastolic blood pressure 80 mm[Hg] 80 mm[Hg] [facility] ([facility], ) Heart rate 72 /min 72 /min [facility] ([facility], ) Body height 60 [in_i] 60 [in_i] [facility] ([facility], ) 5'0" Body weight 175.00 [lb_av] 175.00 [lb_av] [facility] ([facility], ) Body mass index (BMI) [Ratio] 34.2 kg/m2 34.2 k g/m2 [facility] ([facility], ) [place] body weight 100 [lb_av] 100 [lb_av] [facility] ([facility], ) Systolic blood pressure 126 mm[Hg] 126 mm[Hg] M [facility] ([facility]) Diastolic blood pressure 80 mm[Hg] 80 mm[Hg] [facility] ([facility]) Body weight 175.00 [lb_av] 175.00 [lb_av] [facility] ([facility]) Body temperature 97.8 [degF] 97.8 [degF] [facility] ([facility]) Body temperature 97.3 [degF] 97.3 [degF] [facility] ([facility] Heart rate 75 /min 75 /min [facility] ([facility] Respiratory rate 16 /min 16 /min [facility] ( [facility] Body height 60.6 [in_i] 60.6 [in_i] [facility] ([facility] 5'0.60" Systolic blood pressure 136 mm[Hg] 136 mm[Hg] [facility] ([facility] Diastolic blood pressure 84 mm[Hg] 84 mm[Hg] [facility] ([facility] Body weight 184.00 [lb_av] 184.00 [lb_av] [facility] ([facility] [place] body weight 100 [lb_av] 100 [lb_av] [facility] ([facility] Body mass index (BMI) [Ratio] 35.2 kg/m2 35.2 k g/m2 [facility] ([facility] Oxygen saturation in Arterial blood by Pulse oximetry 96 % 96 % [facility] ([facility] Body weight 79.380 kg 79.380 kg [facility] ([facility]) Body height 60 [in_i] 60 [in_i] [facility] ([facility]) 5'0" Body mass index (BMI) [Ratio] 34.2 kg/m2 34.2 k g/m2 [facility] ([facility]) Body surface area Derived from formula 1.76 m2 1.76 m2 [facility] ([facility]) Systolic blood pressure 126 mm[Hg] 126 mm[Hg] [facility] ([facility]) Diastolic blood pressure 76 mm[Hg] 76 mm[Hg] [facility] ([facility]) Heart rate 94 /min 94 /min [facility] ([facility]) Body temperature 97.1 [degF] 97.1 [degF] [facility] ([facility]) Oxygen saturation in Arterial blood by Pulse oximetry 97 % 97 % [facility] ([facility]) Body weight 175.00 [lb_av] 175.00 [lb_av] [facility] ([facility]) Body temperature 97.7 [degF] 97.7 [degF] [facility] ([facility]) Body height 60 [in_i] 60 [in_i] [facility] ([facility]) 5'0" Body weight 184.00 [lb_av] 184.00 [lb_av] [facility] ([facility]) Body mass index (BMI) [Ratio] 35.9 kg/m2 35.9 k g/m2 [facility] ([facility]) Body temperature 97.1 [degF] 97.1 [degF] [facility] ([facility]) Body height 60 [in_i] 60 [in_i] [facility] ([facility]) 5'0" Body weight 188.25 [lb_av] 188.25 [lb_av] [facility] ([facility]) Body mass index (BMI) [Ratio] 36.8 kg/m2 36.8 k g/m2 [facility] ([facility] ) Body mass index (BMI) [Ratio] 36.2 kg/m2 36.2 k g/m2 [facility] ([facility] Oxygen saturation in Arterial blood by Pulse oximetry 97 % 97 % [facility] ([facility] [place] body weight 100 [lb_av] 100 [lb_av] [facility] ([facility] Systolic blood pressure 114 mm[Hg] 114 mm[Hg] [facility] ([facility] Diastolic blood pressure 84 mm[Hg] 84 mm[Hg] [facility] ([facility] Body temperature 98.0 [degF] 98.0 [degF] [facility] ([facility] Heart rate 80 /min 80 /min [facility] ([facility] Respiratory rate 16 /min 16 /min [facility] ( [facility] Body height 60.6 [in_i] 60.6 [in_i] [facility] ([facility] 5'0.60" Body weight 189.00 [lb_av] 189.00 [lb_av] [facility] ([facility] ID Date Data Source [id number] 11/20/2020 08:39:17 AM EDT [facility] Name Value Range Interpretation Code Description Data Source(s) WEIGHT RECORDED 175.00 pounds 175.00 pounds [facility] Height 60 Inches 060 Inches [facility]
[2021-06-21] MEDS ORDERED: propofoL 200 MG/20 ML VIAL As Ordered ONE (11:47)
--- NOTE | 2021-06-21 11:58 | ROOR ---
Patient Name: Claudia Gaines Procedure Date: 06/21/2021 11:45 AM Date of : 1960 Age: 61 Room: [facility] Gender: Female Note Status: Finalized Procedure: Colonoscopy Indications: Screening for colorectal malignant neoplasm Providers: Florin Betancourt Jr, MD Referring MD: NAYELI ABRAHAM Requesting Provider: Medicines: Propofol per Anesthesia Complications: No immediate complications. Procedure: Pre-Anesthesia Assessment: - Prior to the procedure, a History and Physical was performed, and patient medications and allergies were reviewed. The patient is competent. The risks and benefits of the procedure and the sedation options and risks were discussed with the patient. All questions were answered and informed consent was obtained. Patient identification and proposed procedure were verified by the physician and the nurse in the pre-procedure area and in the procedure room. Mental Status Examination: alert and oriented. Airway Examination: normal oropharyngeal airway and neck mobility. Respiratory Examination: clear to auscultation. CV Examination: normal. ASA Grade Assessment: II - A patient with mild systemic disease. After reviewing the risks and benefits, the patient was deemed in satisfactory condition to undergo the procedure. The anesthesia plan was to use moderate sedation / analgesia (conscious sedation). Immediately prior to administration of medications, the patient was re-assessed for adequacy to receive sedatives. The heart rate, respiratory rate, oxygen saturations, blood pressure, adequacy of pulmonary ventilation, and response to care were monitored throughout the procedure. The physical status of the patient was re-assessed after the procedure. The Colonoscope was introduced through the anus and advanced to the cecum, identified by appendiceal orifice and ileocecal valve. The colonoscopy was performed without difficulty. The patient tolerated the procedure well. The quality of the bowel preparation was adequate. Findings: The rectum, recto-sigmoid colon, sigmoid colon, descending colon, transverse colon, ascending colon, cecum, appendiceal orifice and ileocecal valve appeared normal. Impression: - The rectum, recto-sigmoid colon, sigmoid colon, descending colon, transverse colon, ascending colon, cecum, appendiceal orifice and ileocecal valve are normal. - No specimens collected. Recommendation: - Discharge patient to home (ambulatory). - Repeat colonoscopy in 10 years for screening purposes. Procedure Code(s): --- Professional --- 32353, Colonoscopy, flexible; diagnostic, including collection of specimen(s) by brushing or washing, when performed (separate procedure) Diagnosis Code(s): --- Professional --- Z12.11, Encounter for screening for malignant neoplasm of colon CPT copyright 2019 [employer]. All rights reserved. The codes documented in this report are preliminary and upon lathe turner review may be revised to meet current compliance requirements. Florin Betancourt MD Florin Betancourt Jr, MD 06/21/2021 11:57:47 AM Electronically signed by Florin Betancourt Jr, MD Number of Addenda: 0 Note Initiated On: 06/21/2021 11:45 AM Estimated Blood Loss: Estimated blood loss: none.
[2021-06-21 12:20] VITALS: BP 159/82
== END 2021-06-21 12:31 | disposition home or self-care (01) ==
LOC: M OPP 10:33
PROVIDERS: ATTEND Surgery
DX: Z12.11 Encounter for screening for malignant neoplasm of colon (principal); Z79.899 Other long term (current) drug therapy

== ENCOUNTER → 2022-06-17 | Outpatient (CLI) | payer BC ==
[~2022-06-17] MED LIST changes: +LOSA100T45 PO; -LOSA100T50 PO; -NS 1,000 ML IV ONE
== END ==
LOC: M WHC 14:42
PROVIDERS: ATTEND Nurse Practitioner Family
DX: Z12.31 Encounter for screening mammogram for malignant neoplasm of breast (principal)

== ENCOUNTER → 2023-07-02 | Outpatient (CLI) | payer BC ==
[~2023-07-02] MED LIST changes: -LOSA100T45 PO; +LOSA100T46 PO
== END ==
LOC: M WHC 14:42
PROVIDERS: ATTEND Nurse Practitioner Family
DX: Z12.31 Encounter for screening mammogram for malignant neoplasm of breast (principal)

== ENCOUNTER → 2023-07-02 | Outpatient (REF) | payer BC | LOC: M SFHCWAGY 17:55 | PROVIDERS: ATTEND Nurse Practitioner Family | DX: Z12.4 Encounter for screening for malignant neoplasm of cervix (principal); R87.610 Atypical squamous cells of undetermined significance on cytologic smear of cervix (ASC-US) | CPT/HCPCS: 87624; G0123 ==

== ENCOUNTER → 2023-09-11 | Outpatient (CLI) | payer BC | LOC: M RAD 16:10 | PROVIDERS: ATTEND Physician Assistant | DX: Z12.2 Encounter for screening for malignant neoplasm of respiratory organs (principal); F17.211 Nicotine dependence, cigarettes, in remission ==

== ENCOUNTER → 2023-10-01 | Outpatient (CLI) | payer BC | LOC: M PLAIMG 13:32 | PROVIDERS: ATTEND Internal Medicine Pulmonary Disease | DX: R91.8 Other nonspecific abnormal finding of lung field (principal) ==

== ENCOUNTER 2023-11-12 06:04 | Day surgery (SDC) | payer BC ==
[~2023-11-12] VITALS: Ht 152.4 cm; Wt 82.0 kg
[~2023-11-12 06:04] MED LIST changes: +BIOT10009 PO; +FOLI400T5 PO; +MULTTAB86 PO; +ZINC220CA PO
[2023-11-12] MEDS: LR 1,000 ML IV SCH (07:03)
[2023-11-12] MEDS ORDERED: MIDAZOLAM INJ 2MG/2ML VIAL As Ordered ONE (07:14)
[2023-11-12] MEDS ORDERED: propofoL 200 MG/20 ML VIAL As Ordered ONE (07:14)
[2023-11-12] MEDS ORDERED: LIDOCAINE 2% 100MG/5ML SDV (FOR ANES.) As Ordered ONE (07:14)
[2023-11-12] MEDS ORDERED: fentaNYL 100 MCG/2 ML INJECTION As Ordered ONE (07:14)
[2023-11-12] MEDS ORDERED: ROCURONIUM BROMIDE 50MG/5ML VIAL As Ordered ONE (07:14)
[2023-11-12] MEDS ORDERED: ONDANSETRON 4MG 2ML VIAL As Ordered ONE (07:15)
[2023-11-12] MEDS ORDERED: dexmedeTOMIDine (4MCG/ML)200MCG/50ML BTL (PRECEDEX) As Ordered ONE (07:17)
[2023-11-12] MEDS: THROMBIN 5,000 UNITS VIAL As Ordered ONE (07:50)
[2023-11-12] MEDS: EPINEPHrine 1MG/10ML SYRINGE 1.5IN As Ordered ONE (07:50)
[2023-11-12] MEDS: CETACAINE SPRAY 5GM As Ordered ONE (07:51)
[2023-11-12] MEDS ORDERED: SUGAMMADEX SODIUM 500 MG/5 ML VIAL (BRIDION) As Ordered ONE (07:58)
[2023-11-12] MEDS ORDERED: ACETAMINOPHEN 1000MG 100ML IV BAG As Ordered ONE (07:59)
[2023-11-12] MEDS ORDERED: oxyCODONE 5MG TAB PO PRN (08:30)
[2023-11-12] MEDS ORDERED: ONDANSETRON 4MG 2ML VIAL IV PRN (08:30)
[2023-11-12] MEDS ORDERED: fentaNYL 100 MCG/2 ML INJECTION IV PRN (08:30)
[2023-11-12] MEDS ORDERED: LR 1,000 ML IV SCH (08:30)
[2023-11-12 09:34] VITALS: BP 133/77
[2023-11-12 09:44] VITALS: TEMP 97.3; O2SAT 99
== END 2023-11-12 09:52 | disposition home or self-care (01) ==
LOC: M SDC 06:04
PROVIDERS: ATTEND Internal Medicine Pulmonary Disease
DX: R91.8 Other nonspecific abnormal finding of lung field (principal); I10 Essential (primary) hypertension; E78.5 Hyperlipidemia, unspecified; Z79.899 Other long term (current) drug therapy; Z87.891 Personal history of nicotine dependence
CPT/HCPCS: 31627; 31628; 71045; 76000; 87070; 87102; 87116; 87205; 87206; 88104; 88305; 93005; J0131; J0171; J1100; J2250; J2405; J3010

== ENCOUNTER → 2023-12-16 | Outpatient (CLI) | payer BC ==
[~2023-12-16] MED LIST changes: +ISOVUE-300 61% 100ML VIAL As Ordered ONE; +LIDOCAINE 1% MDV 20ML VIAL As Ordered ONE; +TRIAMCINOLONE ACETONIDE SUSP 40MG/ML 1ML VIAL As Ordered ONE
== END ==
LOC: M RAD 14:55
PROVIDERS: ATTEND Physician Assistant
DX: M16.11 Unilateral primary osteoarthritis, right hip (principal)
CPT/HCPCS: 20610; 77002; J3301; Q9967

== ENCOUNTER → 2024-01-22 | Outpatient (CLI) | payer BC ==
[~2024-01-22] MED LIST changes: -ISOVUE-300 61% 100ML VIAL As Ordered ONE; -LIDOCAINE 1% MDV 20ML VIAL As Ordered ONE; -TRIAMCINOLONE ACETONIDE SUSP 40MG/ML 1ML VIAL As Ordered ONE
== END ==
LOC: M RAD 13:44
PROVIDERS: ATTEND Internal Medicine Pulmonary Disease
DX: R91.8 Other nonspecific abnormal finding of lung field (principal)

== ENCOUNTER → 2024-06-10 | Outpatient (CLI) | payer BC | LOC: M RAD 13:57 | PROVIDERS: ATTEND Physician Assistant | DX: M25.561 Pain in right knee (principal) ==

== ENCOUNTER → 2024-07-22 | Outpatient (CLI) | payer BC | LOC: M RAD 08:11 | PROVIDERS: ATTEND Internal Medicine Pulmonary Disease | DX: R91.8 Other nonspecific abnormal finding of lung field (principal) ==

== ENCOUNTER → 2024-08-24 | Outpatient (CLI) | payer BC | LOC: M WHC 08:44 | PROVIDERS: ATTEND Nurse Practitioner Family | DX: Z12.31 Encounter for screening mammogram for malignant neoplasm of breast (principal) ==

== ENCOUNTER → 2024-08-24 | Outpatient (REF) | payer BC | LOC: M SFHCWAGY 15:11 | PROVIDERS: ATTEND Nurse Practitioner Family | DX: Z12.4 Encounter for screening for malignant neoplasm of cervix (principal); Z11.51 Encounter for screening for human papillomavirus (HPV); R87.610 Atypical squamous cells of undetermined significance on cytologic smear of cervix (ASC-US) ==

== ENCOUNTER → 2024-08-26 | Outpatient (CLI) | payer BC | LOC: M CARPUL 09:25 | PROVIDERS: ATTEND Internal Medicine Cardiovascular Disease | DX: R07.9 Chest pain, unspecified (principal); I25.10 Atherosclerotic heart disease of native coronary artery without angina pectoris; R94.31 Abnormal electrocardiogram [ECG] [EKG] ==

== ENCOUNTER → 2024-09-15 | Outpatient (CLI) | payer BC | LOC: M PLAIMG 11:13 | PROVIDERS: ATTEND Internal Medicine Cardiovascular Disease | DX: R60.0 Localized edema (principal); I10 Essential (primary) hypertension; I08.0 Rheumatic disorders of both mitral and aortic valves; I37.1 Nonrheumatic pulmonary valve insufficiency ==

== ENCOUNTER → 2025-02-21 | Outpatient (CLI) | payer BC | LOC: M PLAIMG 13:26 | PROVIDERS: ATTEND Internal Medicine Pulmonary Disease | DX: R91.8 Other nonspecific abnormal finding of lung field (principal); I70.0 Atherosclerosis of aorta; I25.10 Atherosclerotic heart disease of native coronary artery without angina pectoris ==

== ENCOUNTER 2025-03-23 06:00 | Day surgery (SDC) | payer BC ==
[~2025-03-23] VITALS: Ht 152.4 cm; Wt 79.4 kg
[~2025-03-23 06:00] MED LIST changes: +BUSP5TA PO; +CHLO125TA PO; +CITA40TA7 PO; +MELO15TA28 PO; +ROSU40TA81 PO; +ULTR5TAB PO
[2025-03-23] MEDS ORDERED: LR 1,000 ML IV SCH ×2 (06:30→08:45)
[2025-03-23 06:43] LABS: PLATELET COUNT, AUTOMATED 211 10^3/uL (150-450)
[2025-03-23] MEDS ORDERED: SUGAMMADEX SODIUM 500 MG/5 ML VIAL As Ordered ONE (07:05)
[2025-03-23] MEDS ORDERED: dexAMETHasone 4 MG/ML 1 ML VIAL As Ordered ONE (07:05)
[2025-03-23] MEDS ORDERED: ONDANSETRON 4MG 2ML VIAL As Ordered ONE (07:05)
[2025-03-23] MEDS ORDERED: ACETAMINOPHEN 1000MG/100ML IV BAG As Ordered ONE (07:05)
[2025-03-23] MEDS ORDERED: LIDOCAINE 2% 100 MG/5 ML SDV (FOR ANES.) As Ordered ONE (07:05)
[2025-03-23] MEDS ORDERED: MIDAZOLAM INJ 2 MG/2 ML VIAL As Ordered ONE (07:05)
[2025-03-23] MEDS ORDERED: ROCURONIUM BROMIDE 50MG/5ML VIAL As Ordered ONE (07:05)
[2025-03-23 07:10] LABS: CALCIUM LEVEL 9.4 MG/DL (8.3-10.6); CARBON DIOXIDE LEVEL 30 MMOL/L (20-31); CHLORIDE LEVEL 103 MMOL/L (98-107); CREATININE FOR GFR 0.69 MG/DL (0.55-1.30); GLOMERULAR FILTRATION RATE > 90.0 (>45); POTASSIUM SERUM 3.8 MMOL/L (3.5-5.1); SODIUM LEVEL 143 MMOL/L (136-145)
[2025-03-23] MEDS: THROMBIN 5,000 UNITS VIAL As Ordered ONE (07:54)
[2025-03-23] MEDS: EPINEPHrine 1 MG/10 ML SYRINGE 1.5IN As Ordered ONE (07:54)
[2025-03-23] MEDS: CETACAINE SPRAY 5 GM As Ordered ONE (07:54)
[2025-03-23] MEDS ORDERED: ONDANSETRON 4MG 2ML VIAL IV PRN (08:45)
[2025-03-23] MEDS ORDERED: HYDROMORPHONE HCL 0.5 MG/0.5 ML SYRINGE IV PRN (08:45)
[2025-03-23 09:55] VITALS: BP 105/58; TEMP 97.2; O2SAT 94
== END 2025-03-23 10:10 | disposition home or self-care (01) ==
LOC: M SDC 06:00
PROVIDERS: ATTEND Internal Medicine Pulmonary Disease
DX: C34.31 Malignant neoplasm of lower lobe, right bronchus or lung (principal); I10 Essential (primary) hypertension; E78.00 Pure hypercholesterolemia, unspecified; Z79.899 Other long term (current) drug therapy; Z79.1 Long term (current) use of non-steroidal anti-inflammatories (NSAID); Z87.891 Personal history of nicotine dependence
CPT/HCPCS: 31624; 31627; 31628; 36415; 71045; 76000; 80048; 85027; 88108; 88305; 88313; 93005; C1601; J0131; J0168; J1100; J2250; J2405; J3010

== ENCOUNTER → 2025-04-19 | Outpatient (CLI) | payer BC | LOC: M PLARAD 07:42 | PROVIDERS: ATTEND Internal Medicine Pulmonary Disease | DX: C34.31 Malignant neoplasm of lower lobe, right bronchus or lung (principal) | CPT/HCPCS: 78815; A9552 ==

== ENCOUNTER → 2025-07-14 | Outpatient (CLI) | payer BC | LOC: M WUC 10:27 | PROVIDERS: ATTEND Physician Assistant | DX: S23.41XA Sprain of ribs, initial encounter (principal); X58.XXXA Exposure to other specified factors, initial encounter; Y92.9 Unspecified place or not applicable; Y93.9 Activity, unspecified; Y99.9 Unspecified external cause status ==